=== PATIENT | male | born 1995 | race Caucasian/White ===

== ENCOUNTER 2017-07-11 18:56 | Inpatient (IN) | payer OTHER ==
[2017-07-11] MEDS ORDERED: SODIUM CHLORIDE 0.9% 1000 ML INFUS.BAG IV PRN (19:20)
[2017-07-11] MEDS ORDERED: AZITHROMYCIN IVPB 500 MG in DEXTROSE 5%-WATER - 250 ML IVPB ONE (19:35)
[2017-07-11] MEDS ORDERED: ACETAMINOPHEN 1000 MG/100 ML VIAL (NON FORMULARY) IVPB ONE (19:35)
--- NOTE | 2017-07-11 19:44 | PDOC ---
History of Present Illness - General History Source: Care Provider Exam Limitations: Clinical Condition - History of Present Illness Initial Comments: 07/11/17 19:39 Patient is a 22M with history of prior pneumona admission in 08/02, meningomyecele, hydrocephalus, developmentally delayed, and phimosis presenting from an assisted care facility via ems here today with respiratory distress. Per EMS, patient desatted into the 80s and was febrile in the assisted care facility. Patient is unable to add to history, however he is non-communicative at baseline. <Ronni Klein - Last Filed: 07/12/17 03:13> <Giuliano Atkinson - Last Filed: 07/12/17 18:41> - General Chief Complaint: Respiratory Distress Stated Complaint: RESPIRATORY DISTRESS Time Seen by Provider: 07/11/17 19:07 Past History - Psycho/Social/Smoking Cessation Hx Suicidal Ideation: No Smoking History: Unknown if ever smoked Have you smoked in the past 12 months: No Information on smoking cessation initiated: No Hx Alcohol Use: No Drug/Substance Use Hx: No Hx Substance Use Treatment: No <Ronni Klein - Last Filed: 07/12/17 03:13> <Giuliano Atkinson - Last Filed: 07/12/17 18:41> - Past Medical History Allergies/Adverse Reactions: Allergies Allergy/AdvReac Type Severity Reaction Status Date / Time No Known Allergies Allergy Verified 07/29/16 20:28 Home Medications: Ambulatory Orders Calcium Carbonate 1 gm PO DAILY 07/29/16 Carbamazepine 700 mg PO TID 07/29/16 Mineral Oil/Petrolatum,White [Artificial Tears Eye Ointment] 3.5 gm OP HS Multivitamin [Poly-Vitamin] 10 ml PO DAILY 07/29/16 Phenobarbital Liquid - [Phenobarbital Liquid 20 MG/5 ML -] 97.2 mg PO AM Phenobarbital Liquid - [Phenobarbital Liquid 20 MG/5 ML -] 148.8 mg PO HS Polyethylene Glycol 3350 [Gavilax] 17 gm PO HS 07/29/16 Review of Systems - Review of Systems Able to Perform ROS?: No (Pt non-communicative) <Ronni Klein - Last Filed: 07/12/17 03:13> *Physical Exam - Vital Signs Last Vital Signs Temp Pulse Resp BP Pulse Ox 142 H 34 H 117/76 95 07/11/17 19:31 07/11/17 19:31 07/11/17 19:31 07/11/17 19:31 - Physical Exam Comments: 07/11/17 19:44 GENERAL: Awake, alert, non-communicative AIRWAY: Eyes spontaneously open, protecting airway HEAD: Extremely macrocephalic, no signs of acute trauma EYES: PERRLA, follows across room sclera anicteric, conjunctiva clear ENT: Auricles normal inspection, hearing grossly normal, nares patent, oropharynx clear without exudates. LUNGS: In respiratory distress, diffuse rales and crackles in all lung beckham, tachypneic HEART: Tachycardic, regular rhythm. Cold lower extremities, weak pulses bilaterally in lower extremity ABDOMEN: Distended, nontender, positive bowel sounds. No guarding, no rebound. EXTREMITIES: Bilateral talipes equinovarus, bilateral equally shortened lower extremities NEUROLOGICAL: Alert, eye tracking across room, PERRLA, face symmetrical, unable to further assess neuro status <Ronni Klein - Last Filed: 07/12/17 03:13> - Vital Signs Last Vital Signs Temp Pulse Resp BP Pulse Ox 98.7 F 132 H 25 H 105/67 97 07/12/17 16:00 07/12/17 18:00 07/12/17 18:00 07/12/17 18:00 07/12/17 18:02 <Giuliano Atkinson - Last Filed: 07/12/17 18:41> ED Treatment Course - LABORATORY CBC & Chemistry Diagram: 07/12/17 01:01 07/11/17 21:20 - RADIOLOGY Radiology Studies Ordered: Category Date Time Status CHEST X-RAY PORTABLE* [RAD] Stat Radiology 07/11/17 19:21 Ordered <Ronni Klein - Last Filed: 07/12/17 03:13> - LABORATORY CBC & Chemistry Diagram: 07/12/17 05:15 07/12/17 01:02 - ADDITIONAL ORDERS Additional order review: 07/11/17 20:30 RBC 5.90 H D MCV 90.1 MCHC 33.5 RDW 15.4 MPV Y Neutrophils % Y Lymphocytes % Y - Medications Given in the ED: ED Medications Discontinued Medications Generic Name Dose Route Start Last Admin Trade Name Freq PRN Reason Stop Dose Admin Acetaminophen 1,000 mg 07/11/17 19:35 07/11/17 21:07 Ofirmev Injection - IVPB 07/11/17 19:36 1,000 mg ONCE ONE Administration Acetaminophen 1,000 mg 07/12/17 08:22 07/12/17 09:16 Ofirmev Injection - IVPB 07/12/17 08:23 1,000 mg ONCE ONE Administration Cyclobenzaprine HCl 5 mg 07/11/17 22:05 07/11/17 22:29 Flexeril - PO 07/11/17 22:06 Not Given ONCE ONE Azithromycin 500 mg/ Dextrose 250 mls @ 250 mls/hr 07/11/17 19:35 07/11/17 21: 25 IVPB 07/11/17 20:34 250 mls/hr ONCE ONE Administration Vancomycin HCl 1,000 mg/ 250 mls @ 250 mls/hr 07/11/17 22:00 07/11/17 22:28 Dextrose IVPB 250 mls/hr BID ELISHA Administration Protocol Sodium Chloride 2,000 mls @ 1,000 mls/hr 07/11/17 23:27 07/12/17 00:16 Normal Saline - IV 07/12/17 01:26 1,000 mls/hr ASDIR STA Administration Sodium Chloride 500 mls @ 500 mls/hr 07/12/17 09:24 07/12/17 09:40 Normal Saline - IV 07/12/17 10:23 500 mls/hr ASDIR STA Administration Insulin Human Regular 4 units 07/11/17 22:42 07/11/17 23:13 Novolin R Vial *For Ivpush Or Iv Drip Only* IVPUSH 07/11/17 22:43 4 units ONCE ONE Administration Piperacillin Sod/Tazobactam Sod 4.5 gm 07/11/17 20:37 07/11/17 21:07 Zosyn 4.5gm Ivpb (Pre-Docked) IVPB 07/11/17 20:38 4.5 gm ONCE ONE Administration Piperacillin Sod/Tazobactam Sod 4.5 gm 07/12/17 03:00 07/12/17 02:36 Zosyn 4.5gm Ivpb (Pre-Docked) IVPB 07/12/17 03:01 4.5 gm ONCE ONE Administration Sodium Chloride 2,000 ml 07/11/17 20:32 07/11/17 21:49 Normal Saline - IV 07/11/17 20:33 2,000 ml ONCE ONE Administration <Giuliano Atkinson - Last Filed: 07/12/17 18:41> Medical Decision Making - Medical Decision Making 07/11/17 19:55 22M with history of meningomyelocele, macrocephaly, developmental delay and pneumonia here today with respiratory distress. Meets sepsis criteria. Source likely lungs. Sepsis workup initiated. Given 2L NS, tylenol, vanc, zosyn, azithromycin. 07/11/17 20:14 EKG shows QTc 447, tachycardic to 139, rightward axis, diffuse ME depressions, no ST elevations, sinus rhythm 07/11/17 20:16 CXR shows increased density in the left lung base. Exam limited by patient rotation. 07/11/17 23:03 WBC 25. Lactate 5.7. Glucose 538. Acetone negative. Gap of 20, due to lactic acid. Given 4U of insulin for high glucose. Admitted to ICU. <Ronni Klein - Last Filed: 07/12/17 03:13> - Critical Care Time Total Critical Care Time (minutes): 35 Critical Care Statement: The care of this patient involved high complexity decision making to prevent further life threatening deterioration of the patient 's condition and/or to evaluate & treat vital organ system(s) failure or risk of failure. <Giuliano Atkinson - Last Filed: 07/12/17 18:41> *DC/Admit/Observation/Transfer - Discharge Dispostion Admit: No - Attestations Physician Attestion: 07/12/17 03:13 I, Dr. Ronni Klein, attest that this document has been prepared under my direction and personally reviewed by me in its entirety. I further attest, that it accurately reflects all work, treatment, procedures and medical decision -making performed by me. <Ronni Klein - Last Filed: 07/12/17 03:13> <Giuliano Atkinson - Last Filed: 07/12/17 18:41> Diagnosis at time of Disposition: Pneumonia Qualifiers: Pneumonia type: aspiration pneumonia Aspiration pneumonia type: unspecified Laterality: left Lung location: unspecified part of lung Qualified Code(s): J69.0 - Pneumonitis due to inhalation of food and vomit - Discharge Dispostion Condition at time of disposition: Stable
--- NOTE | 2017-07-11 20:07 | PDOC ---
Attending Attestation - Resident Resident Name: Ronni Klein - ED Attending Attestation I have performed the following: I have examined & evaluated the patient, The case was reviewed & discussed with the resident, I agree w/resident's findings & plan, Exceptions are as noted - HPI HPI: 07/11/17 20:02 22-year-old male with history of pneumonia, meningomyelocele, developmental delayed, hydrocephalus presents from [place] for hypoxia and tachycardia. The patient is nonverbal and according to the cold type composing machine operator, the patient appears like his usual self. They noted that he is tachycardic hypoxic and was concerned for pneumonia and the patient was sent to the ED. Patient noted to have fever of greater than 102. He has had rhonchorous breath sounds. - Physicial Exam PE: 07/11/17 20:03 GENERAL: Awake. Tachypneic. Macrocephalic HEAD: No signs of trauma EYES: PERRLA, EOMI, sclera anicteric, conjunctiva clear ENT: Auricles normal inspection, hearing grossly normal, nares patent, oropharynx clear without exudates. NECK: Normal ROM, supple, no lymphadenopathy, JVD, or masses LUNGS: Ronchorous bilaterally HEART: Tachycardic. Regular rate and rhythm, normal S1 and S2, no murmurs, rubs or gallops ABDOMEN: Soft, nontender, normoactive bowel sounds. No guarding, no rebound. No masses EXTREMITIES: Normal range of motion, no edema. No clubbing or cyanosis. No cords, erythema, or tenderness NEUROLOGICAL: Cranial nerves II through XII grossly intact. Contractured and clubbed feet. SKIN: Warm, Dry, normal turgor, no rashes or lesions noted. - Medical Decision Making 07/11/17 20:04 Vital Signs Temp Pulse Resp BP Pulse Ox 142 H 34 H 117/76 95 07/11/17 19:37 07/11/17 19:31 07/11/17 19:31 07/11/17 19:37 Patient likely with pneumonia. Adult sepsis protocol initiated. Labs, supplemental O2, cultures. We'll likely need hospital coverage acquired pneumonia antibiotics. We'll likely need admission to the ICU for further management. Heart Score/ECG Review #1 07/11/17 20:41 NSR 139, rightward axis deviation, no std/max, QTC 447 msec
[2017-07-11] MEDS ORDERED: SODIUM CHLORIDE 0.9% 1000 ML INFUS.BAG IV ONE (20:32)
[2017-07-11] MEDS ORDERED: PIPERACILLIN/TAZOB 4.5 GM/100 ML PRE-DOCKED IVPB ONE (20:37)
[2017-07-11 20:52] LABS: MCH 30.2 pg (25.7-33.7); MCHC 33.5 g/dl (32.0-35.9); MEAN CELL VOLUME 90.1 fl (80-96); RDW 15.4 % (11.9-15.9)
[2017-07-11] MEDS ORDERED: ACETAMINOPHEN INJECTION 100 ML IVPB ONE (20:56)
[2017-07-11] MEDS ORDERED: PIPERACILLIN/TAZOB 4.5 GM 100 ML IVPB ONE (20:57)
[2017-07-11 21:09] LABS: URINE APPEARANCE CLOUDY; URINE BLOOD 1+ (NEGATIVE); URINE GLUCOSE (UA) NEGATIVE (NEGATIVE); URINE KETONE NEGATIVE (NEGATIVE); URINE NITRITE NEGATIVE (NEGATIVE); URINE UROBILINOGEN NEGATIVE mg/dL (0.2-1.0)
[2017-07-11] MEDS ORDERED: AZITHROMYCIN IVPB 250 ML IVPB ONE (21:11)
[2017-07-11 21:18] LABS: URINE COLOR YELLOW; URINE LEUK ESTERASE 1+ (NEGATIVE); URINE PROTEIN 2+ (NEGATIVE)
[2017-07-11 21:23] LABS: URINE BACTERIA MODERATE /hpf (NONE SEEN); URINE HYALINE CAST 8 /lpf; URINE MUCUS RARE; URINE RBC 34 /hpf (0-3); URINE WBC 114 /hpf (3-5)
[2017-07-11 21:41] LABS: PLATELET COMMENT2 NO CLOTTING DETECTED
[2017-07-11 21:42] LABS: PLATELET COMMENT3 UNABLE TO ENUMERATE
[2017-07-11 21:43] LABS: PLATELET ESTIMATE ADEQUATE (NORMAL)
[2017-07-11 21:44] LABS: METAMYELOCYTE 5 % (0-2); MYELOCYTE 2 % (0-2); TOTAL CELLS COUNTED 100
[2017-07-11 21:49] LABS: INR 1.66 (0.82-1.09); PROTHROMBIN TIME (PATIENT) 18.4 SEC (9.98-11.88)
[2017-07-11 21:58] LABS: ALBUMIN 2.6 g/dl (3.4-5.0); ANION GAP 20 (8-16); BILIRUBIN,TOTAL 0.7 mg/dL (0.2-1.0); CALCIUM 7.7 mg/dL (8.5-10.1); CO2 19 mmol/L (21-32); SGOT/AST 10 U/L (15-37); SGPT/ALT 20 U/L (12-78); TOT PROT 7.2 g/dl (6.4-8.2)
[2017-07-11 21:59] LABS: ALK PHOS 89 U/L (45-117)
[2017-07-11 22:00] LABS: GLUCOSE,RANDOM 538 mg/dL (74-106)
[2017-07-11] MEDS ORDERED: VANCOMYCIN 1,000 MG in DEXTROSE 5%-WATER - 250 ML IVPB SCH (22:00)
[2017-07-11] MEDS ORDERED: CYCLOBENZAPRINE HCL 10 MG TABLET (FP) PO ONE (22:05)
[2017-07-11] MEDS ORDERED: VANCOMYCIN 1 GRAM (PRE-DOCKED) 250 ML IVPB ONE (22:25)
[2017-07-11] MEDS ORDERED: INSULIN REGULAR HUMAN 100 UNITS/ML *VIAL IVPUSH ONE (22:42)
--- NOTE | 2017-07-11 23:10 | HP ---
CHIEF COMPLAINT: respiratory distress at [facility] PCP: [facility] HISTORY OF PRESENT ILLNESS: This is a 22yo male with history of pneumonia, meningomyelocele, developmental delayed, hydrocephalus s/p [employer] shunt, spastic CP , epilepsy presents from [place] for hypoxia and tachycardia. The patient is nonverbal and according to the ladies' locker room attendant, the patient appears like his usual self. They noted that he is tachycardic hypoxic and was concerned for pneumonia and the patient was sent to the ED. Patient noted to have fever of greater than 102. He has had rhonchorous breath sounds. ER course was notable for: (1) Tachypnea- 40, Tachycardia- 142, Fevers- 101.3 (2) Leukocytosis of 25,000 (3) Lactic acid- 5.7 (4) AG- 20 acetone (-) (5) Hyperglycemia- 538 (6) CXR with large effusion to left lung (7) UA- LE 1+, WBC-114, Moderate Bacteria Recent Travel: none PAST MEDICAL HISTORY: see HPI PAST SURGICAL HISTORY: see HPI Social History: Smoking: none Alcohol: none Drugs: none Allergies No Known Allergies Allergy (Verified 07/29/16 20:28) HOME MEDICATIONS: Home Medications Medication Instructions Recorded Calcium Carbonate 1 gm PO DAILY 07/29/16 Carbamazepine 700 mg PO TID 07/29/16 Mineral Oil/Petrolatum,White 3.5 gm OP HS 07/29/16 [Artificial Tears Eye Ointment] Multivitamin [Poly-Vitamin] 10 ml PO DAILY 07/29/16 Phenobarbital Liquid - 97.2 mg PO AM 07/29/16 [Phenobarbital Liquid 20 MG/5 ML -] Phenobarbital Liquid - 148.8 mg PO HS 07/29/16 [Phenobarbital Liquid 20 MG/5 ML -] Polyethylene Glycol 3350 [Gavilax] 17 gm PO HS 07/29/16 REVIEW OF SYSTEMS Unable to obtain due to baseline mental status of nonverbal. PHYSICAL EXAMINATION Vital Signs - 24 hr 07/11/17 07/11/17 07/11/17 19:31 19:37 20:55 Temperature 101.3 F H Pulse Rate 142 H 142 H Pulse Rate [ Apical] Respiratory 34 H Rate Blood Pressure 117/76 O2 Sat by Pulse 95 95 Oximetry (%) 07/11/17 21:53 Temperature Pulse Rate Pulse Rate [ 139 H Apical] Respiratory 25 H Rate Blood Pressure O2 Sat by Pulse 100 Oximetry (%) GENERAL: Awake, alert, and fully oriented, in no acute distress. HEAD: Macrocephalic with no signs of trauma. EYES: Pupils equal, round and reactive to light, eyes track, sclera anicteric, conjunctiva clear. No lid lag. EARS, NOSE, THROAT: Ears normal, nares patent, oropharynx clear without exudates. Moist mucous membranes. NECK: Normal range of motion, supple without lymphadenopathy, JVD, or masses. LUNGS: Rhonchi present over all lung beckham. Accessory muscle use present. Tachypneic@40 on 5LNC. HEART: Tachycardia @118. Sinus rhythm, normal S1 and S2 without murmur, rub or gallop. ABDOMEN: Firm, nontender, distended, normoactive bowel sounds, no guarding, no rebound, no masses. No hepatomegaly or splenomegaly. MUSCULOSKELETAL: Normal range of motion at all joints. No bony deformities or tenderness. No CVA tenderness. UPPER EXTREMITIES: 2+ pulses, warm, well-perfused. No cyanosis. No clubbing. No peripheral edema. LOWER EXTREMITIES: 2+ pulses, cool to palpation. No calf tenderness. No peripheral edema. BLE shortened with minimal muscle mass. B/L club feet. NEUROLOGICAL: Eyes track. PERRLA. SKIN: Warm, dry, normal turgor, no rashes or lesions noted, normal capillary refill. Laboratory Results - last 24 hr 07/11/17 07/11/17 07/11/17 20:30 20:30 20:30 WBC 25.0 H D RBC 5.90 H D Hgb 17.8 H D Hct 53.2 H D MCV 90.1 MCH 30.2 MCHC 33.5 RDW 15.4 Plt Count No Result Required. MPV Y Total Counted 100 Neutrophils % Y Neutrophils % (Manual) 60 Band Neuts % (Manual) 30 H Lymphocytes % Y Lymphocytes % (Manual) 2 L Monocytes % (Manual) 1 L Myelocytes % (Man) 2 Platelet Estimate Adequate Platelet Comment No clotting detected RBC Morphology INR Cancelled PTT (Actin FS) Cancelled Sodium Cancelled Potassium Cancelled Chloride Cancelled Carbon Dioxide Cancelled Anion Gap Cancelled BUN Cancelled Creatinine Cancelled Creat Clearance w eGFR Cancelled Random Glucose Cancelled Lactic Acid Calcium Cancelled Total Bilirubin Cancelled AST Cancelled ALT Cancelled Alkaline Phosphatase Cancelled Creatine Kinase Cancelled Troponin I Cancelled Total Protein Cancelled Albumin Cancelled Urine Color Urine Appearance Urine pH Ur Specific [place] Urine Protein Urine Glucose (UA) Urine Ketones Urine Blood Urine Nitrite Urine Bilirubin Urine Urobilinogen Ur Leukocyte Esterase Urine RBC Urine WBC Ur Epithelial Cells Urine Bacteria Hyaline Casts Urine Mucus Acetone, Qual Blood Type Antibody Screen Spec Expiration Date 07/11/17 07/11/17 07/11/17 20:30 20:30 20:30 WBC RBC Hgb Hct MCV MCH MCHC RDW Plt Count MPV Total Counted Neutrophils % Neutrophils % (Manual) Band Neuts % (Manual) Lymphocytes % Lymphocytes % (Manual) Monocytes % (Manual) Myelocytes % (Man) Platelet Estimate Platelet Comment RBC Morphology INR PTT (Actin FS) Sodium Potassium Chloride Carbon Dioxide Anion Gap BUN Creatinine Creat Clearance w eGFR Random Glucose Lactic Acid 5.7 H* Calcium Total Bilirubin AST ALT Alkaline Phosphatase Creatine Kinase Troponin I Total Protein Albumin Urine Color Urine Appearance Urine pH Ur Specific [place] Urine Protein Urine Glucose (UA) Urine Ketones Urine Blood Urine Nitrite Urine Bilirubin Urine Urobilinogen Ur Leukocyte Esterase Urine RBC Urine WBC Ur Epithelial Cells Urine Bacteria Hyaline Casts Urine Mucus Acetone, Qual Blood Type Cancelled A NEGATIVE Antibody Screen Cancelled Spec Expiration Date Cancelled 07/11/17 07/11/17 07/11/17 20:48 21:20 21:20 WBC RBC Hgb Hct MCV MCH MCHC RDW Plt Count MPV Total Counted Neutrophils % Neutrophils % (Manual) Band Neuts % (Manual) Lymphocytes % Lymphocytes % (Manual) Monocytes % (Manual) Myelocytes % (Man) Platelet Estimate Platelet Comment RBC Morphology INR 1.66 H PTT (Actin FS) 30.0 Sodium 130 L Potassium 3.8 Chloride 91 L D Carbon Dioxide 19 L D Anion Gap 20 H BUN 18 D Creatinine 1.0 D Creat Clearance w eGFR > 60 Random Glucose 538 H* D Lactic Acid Calcium 7.7 L Total Bilirubin 0.7 D AST 10 L D ALT 20 Alkaline Phosphatase 89 D Creatine Kinase Troponin I Total Protein 7.2 Albumin 2.6 L Urine Color Yellow Urine Appearance Cloudy Urine pH 5.0 Ur Specific [place] 1.020 Urine Protein 2+ H Urine Glucose (UA) Negative Urine Ketones Negative Urine Blood 1+ H Urine Nitrite Negative Urine Bilirubin 2.0 Urine Urobilinogen Negative Ur Leukocyte Esterase 1+ H Urine RBC 34 Urine WBC 114 Ur Epithelial Cells Many Urine Bacteria Moderate Hyaline Casts 8 Urine Mucus Rare Acetone, Qual Blood Type Antibody Screen Spec Expiration Date 07/11/17 07/11/17 21:20 21:20 WBC RBC Hgb Hct MCV MCH MCHC RDW Plt Count MPV Total Counted Neutrophils % Neutrophils % (Manual) Band Neuts % (Manual) Lymphocytes % Lymphocytes % (Manual) Monocytes % (Manual) Myelocytes % (Man) Platelet Estimate Platelet Comment RBC Morphology INR PTT (Actin FS) Sodium Potassium Chloride Carbon Dioxide Anion Gap BUN Creatinine Creat Clearance w eGFR Random Glucose Lactic Acid Calcium Total Bilirubin AST ALT Alkaline Phosphatase Creatine Kinase Troponin I Total Protein Albumin Urine Color Urine Appearance Urine pH Ur Specific [place] Urine Protein Urine Glucose (UA) Urine Ketones Urine Blood Urine Nitrite Urine Bilirubin Urine Urobilinogen Ur Leukocyte Esterase Urine RBC Urine WBC Ur Epithelial Cells Urine Bacteria Hyaline Casts Urine Mucus Acetone, Qual Negative Blood Type A NEGATIVE Antibody Screen Negative Spec Expiration Date CXR reviewed with official read: Since prior chest x-ray dated 08/07/2016, there remains airspace disease in the left lung base. Patient is rotated to the left. Cardiac silhouette is difficult to evaluate on this exam. The right lung is clear. Marked dextroscoliosis of the thoracic spine. Impression: Limited examination due to rotation of the patient to the left. There is increased density in the left lung base suspicious for airspace disease. Correlation with PA and lateral view of the chest, if possible is needed for further evaluation Reported By: Lianet Bustos MD 07/11/172003 ASSESSMENT/PLAN: A: 22yo man with Sepsis with probable source as mixed given CXR and UA. Cannot exclude abdomen as source given V-P shunt and abdominal distention. P: 1. Sepsis - likely mixed source of PNA and UTI with ?Abd - Meets SIRS with WBC, RR, temp, HR - Empiric treatment in ED vancomycin, Zosyn and Zithromax - Continue Vanco 1250mg bid - Zosyn 4.5g q6h - ID consult - repeat lactic acid pending - trend CBC, CMP - strict I&O's - would CT head when stable for CT - abd U/S- pending 2. PNA - titrate O2 to Spo2>93% - Vancomycin 15mg/kg bid - Zosyn 4.5g q6h 3. UTI - broad coverage with Zosyn and Vanc until C&S returned 4. Hyperglycemia - FS qACHS - ISS - NS@125 - Acetone negative 5. Lactic acidosis - initial 5.7 - received 2 liters NS - repeat pending 6. Seizures - monitor for activity - continue phenobarbitol 7. h/o Hydrocephalus with V-P shunt - monitor 8. F/E/N - daily CMP - NS@125 - NPO 9. PPX -sqh -SCD Dispo- requires ICU treatment for his acute medical conditions Visit type - Emergency Visit Emergency Visit: Yes ED Registration Date: 07/11/17 Care time: The patient presented to the Emergency Department on the above date and was hospitalized for further evaluation of their emergent condition. - New Patient This patient is new to me today: Yes Date on this admission: 07/16/17 - Critical Care Critical Care patient: No Total Critical Care Time (in minutes): 60 Critical Care Statement: The care of this patient involved high complexity decision making to prevent further life threatening deterioration of the patient 's condition and/or to evaluate & treat vital organ system(s) failure or risk of failure.
[2017-07-11 23:26] LABS: CPK 51 IU/L (39-308); TROPONIN I < 0.02 ng/ml (0.00-0.05)
[2017-07-11] MEDS ORDERED: SODIUM CHLORIDE 2,000 ML IV STA (23:27)
[2017-07-12] MEDS: SODIUM CHLORIDE 1,000 ML IV SCH ×2 (01:00→11:31)
[2017-07-12 01:11] VITALS: BMI 36.8
--- NOTE | 2017-07-12 01:19 | CONSULT ---
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 In EDT 102.8, HR 130-142, RR 34, BP 117/76. He was placed on 100% NRB fo o2 sat in the 80's with improvement. Labs notable for WBC 5, Hgb 17.8, Na 130, HCO3 19 , BG 538, acetone negative, lactate 5.7, INR 1.66, urine WBC 114. CXR s/f LLL opacities. He was given 2L NS and started on Azithro, Zosyn and vanco IV as empiric coverage. He was transferred to ICU for further management. In the ICU rec'd BP 120/81, HR 120, RR 34, T98.4 O2 sat 96% on 100% NRB. Anxious and vomited x1 when turned for cleaning. Abd noted to be very distended , tympanic and firm. NGT to LWS drained 2600cc of NB brownish fluid. Abd appeared less firm, breathing less labored. Abd US done. 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, Other (Macrocephaly) Musculoskeletal: Yes: Paraplegia - Alcohol/Substance Use Hx Alcohol Use: No - Smoking History Smoking history: Unknown if ever smoked Have you smoked in the past 12 months: No Home Medications - Allergies Allergies/Adverse Reactions: Allergies Allergy/AdvReac Type Severity Reaction Status Date / Time No Known Allergies Allergy Verified 07/29/16 20:28 - Home Medications Home Medications: Ambulatory Orders Calcium Carbonate 1 gm PO DAILY 07/29/16 Carbamazepine 700 mg PO TID 07/29/16 Mineral Oil/Petrolatum,White [Artificial Tears Eye Ointment] 3.5 gm OP HS Multivitamin [Poly-Vitamin] 10 ml PO DAILY 07/29/16 Phenobarbital Liquid - [Phenobarbital Liquid 20 MG/5 ML -] 97.2 mg PO AM Phenobarbital Liquid - [Phenobarbital Liquid 20 MG/5 ML -] 148.8 mg PO HS Polyethylene Glycol 3350 [Gavilax] 17 gm PO HS 07/29/16 Review of Systems Unable to obtain ROS, reason: Non verbal Physical Exam Vital Signs: Vital Signs Temperature 98.2 F 07/12/17 00:50 Pulse Rate 112 H 07/12/17 00:50 Respiratory Rate 25 H 07/12/17 00:50 Blood Pressure 120/81 07/12/17 00:50 O2 Sat by Pulse Oximetry (%) 100 07/12/17 00:50 Constitutional: Yes: Anxious, Mild Distress, Obese Eyes: Yes: WNL, Conjunctiva Clear HENT: Yes: Other (HYdrocephalus) Neck: Yes: Trachea Midline Cardiovascular: Yes: Tachycardia, S1, S2 Respiratory: Yes: Rales, Rhonchi, SOB, Wheezes Gastrointestinal: Yes: Distention (Tympanic, distended, unclear if non-tender to palp), Hypoactive Bowel Sounds, Vomiting (Vomited when turned to side) Renal/: Yes: Incontinence Musculoskeletal: Yes: Other (Contracted; malformed) Edema: No Peripheral Pulses WNL: Yes Integumentary: Yes: Pressure Ulcer (Stage 2 on bilat buttocks) Neurological: Yes: Other (Spastic, non-verbal) Labs: CBC,CMP WBC 25.0 K/mm3 (4.0-10.0) H D 07/11/17 20:30 RBC 5.90 M/mm3 (4.00-5.60) H D 07/11/17 20:30 Hgb 17.8 GM/dL (11.7-16.9) H D 07/11/17 20:30 Hct 53.2 % (35.4-49) H D 07/11/17 20:30 MCV 90.1 fl (80-96) 07/11/17 20:30 MCH 30.2 pg (25.7-33.7) 07/11/17 20:30 MCHC 33.5 g/dl (32.0-35.9) 07/11/17 20:30 RDW 15.4 % (11.9-15.9) 07/11/17 20:30 Plt Count No Result Required. 07/11/17 20:30 MPV Y 07/11/17 20:30 Total Counted 100 07/11/17 20:30 Neutrophils % Y 07/11/17 20:30 Neutrophils % (Manual) 60 % (42.8-82.8) 07/11/17 20:30 Band Neuts % (Manual) 30 % (0-10) H 07/11/17 20:30 Lymphocytes % Y 07/11/17 20:30 Lymphocytes % (Manual) 2 % (8-40) L 07/11/17 20:30 Monocytes % (Manual) 1 % (3.8-10.2) L 07/11/17 20:30 Myelocytes % (Man) 2 % (0-2) 07/11/17 20:30 Platelet Estimate Adequate (NORMAL) 07/11/17 20:30 Platelet Comment Slt plt clumping 07/11/17 20:30 Platelet Comment No clotting detected 07/11/17 20:30 RBC Morphology 07/11/17 20:30 Sodium 130 mmol/L (136-145) L 07/11/17 21:20 Potassium 3.8 mmol/L (3.5-5.1) 07/11/17 21:20 Chloride 91 mmol/L (98-107) L D 07/11/17 21:20 Carbon Dioxide 19 mmol/L (21-32) L D 07/11/17 21:20 Anion Gap 20 (8-16) H 07/11/17 21:20 BUN 18 mg/dL (7-18) D 07/11/17 21:20 Creatinine 1.0 mg/dL (0.7-1.3) D 07/11/17 21:20 Creat Clearance w eGFR > 60 (>60) 07/11/17 21:20 Random Glucose 538 mg/dL (74-106) H* D 07/11/17 21:20 Lactic Acid 5.7 mmol/L (0.4-2.0) H* 07/11/17 20:30 Calcium 7.7 mg/dL (8.5-10.1) L 07/11/17 21:20 Total Bilirubin 0.7 mg/dL (0.2-1.0) D 07/11/17 21:20 AST 10 U/L (15-37) L D 07/11/17 21:20 ALT 20 U/L (12-78) 07/11/17 21:20 Alkaline Phosphatase 89 U/L (45-117) D 07/11/17 21:20 Creatine Kinase 51 IU/L (39-308) 07/11/17 21:20 Troponin I < 0.02 ng/ml (0.00-0.05) 07/11/17 21:20 Total Protein 7.2 g/dl (6.4-8.2) 07/11/17 21:20 Albumin 2.6 g/dl (3.4-5.0) L 07/11/17 21:20 100% NRB Current Medications Generic Name Dose Route Start Last Admin Trade Name Frear PRN Reason Stop Dose Admin Chlorhexidine Gluconate 1 applic 07/12/17 22:00 Hibiclens For Decolonization - TP HS ELISHA Heparin Sodium (Porcine) 5,000 unit 07/12/17 06:00 Heparin - SQ TID ELISHA Vancomycin HCl 1,000 mg/ 250 mls @ 250 mls/hr 07/11/17 22:00 07/11/17 22:28 Dextrose IVPB 250 mls/hr BID ELISHA Administration Protocol Sodium Chloride 2,000 mls @ 1,000 mls/hr 07/11/17 23:27 07/12/17 00:16 Normal Saline - IV 07/12/17 01:26 1,000 mls/hr ASDIR STA Administration Vancomycin HCl 1,250 mg/ 250 mls @ 250 mls/hr 07/12/17 10:00 Dextrose IVPB BID ELISHA Protocol Sodium Chloride 1,000 mls @ 125 mls/hr 07/12/17 01:00 Normal Saline - IV ASDIR ELISHA Insulin Aspart 1 vial 07/12/17 07:00 Novolog Vial Sliding Scale - SQ ACHS [facility] Protocol Mupirocin 1 applic 07/12/17 10:00 Bactroban Ointment (For Decolonization) - NS 07/17/17 09:59 BID ELISHA Piperacillin Sod/Tazobactam Sod 4.5 gm 07/12/17 03:00 Zosyn 4.5gm Ivpb (Pre-Docked) IVPB Q6H-IV [facility] Vital Signs - 24 hr 07/11/17 07/11/17 07/11/17 19:31 19:37 20:55 Temperature 101.3 F H Pulse Rate 142 H 142 H Pulse Rate [ Apical] Respiratory 34 H Rate Blood Pressure 117/76 O2 Sat by Pulse 95 95 Oximetry (%) 07/11/17 07/11/1707/12/17 21:53 23:56 00:50 Temperature 99 F 98.2 F Pulse Rate 112 H Pulse Rate [ 139 H Apical] Respiratory 25 H 25 H 25 H Rate Blood Pressure 120/81 O2 Sat by Pulse 100 100 Oximetry (%) Imaging - Results Chest X-ray: Report Reviewed Ultrasound: Pending Problem List - Problems (1) Pneumonia Code(s): J18.9 - PNEUMONIA, UNSPECIFIED ORGANISM Qualifiers: Pneumonia type: aspiration pneumonia Aspiration pneumonia type: unspecified Laterality: left Lung location: unspecified part of lung Qualified Code(s): J69.0 - Pneumonitis due to inhalation of food and vomit (2) UTI (urinary tract infection) Code(s): N39.0 - URINARY TRACT INFECTION, SITE NOT SPECIFIED (3) Distended abdomen Code(s): R14.0 - ABDOMINAL DISTENSION (GASEOUS) Assessment/Plan 22yom with spastic CP, macrocephaly, hydrocephalous s/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 Also with severe abd distention with c/f abd process. Plan: Pulm/CV: Hypoxic respiratory insufficiency 2/2 recurrent HAP possible aspiration -O2 support with NRB mask for o2 sat>92% -Continue antib -Aspiration precautions -NGT to LWS -Albuterol nebs prn -Trend lactate ID: HAP ; UTI; -Trend WBC and temp -Cont Azithro, vanco and Zosyn for empiric HAP and UTI coverage -f/u cultures GI: ABD distention and large amt stomach content c/f bowel obstruction; elevated bilis and INR -NPO -NGT to LWS -Abd US -GI consult Renal: MYRA, AGMA, lactic acidosis, hyponatremia in setting of sepsis and volume depletion -Monitor BMP and UOP -IVF -perez cath Proph: Hep SQ; H2B
[2017-07-12 02:22] LABS: MEAN CELL VOLUME 91.1 fl (80-96)
[2017-07-12 02:27] LABS: MCH 30.2 pg (25.7-33.7); MCHC 33.1 g/dl (32.0-35.9); MEAN PLT VOLUME 7.9 fl (7.5-11.1); PLATELET COUNT 248 K/MM3 (134-434); WHITE BLOOD COUNT 7.7 K/mm3 (4.0-10.0)
[2017-07-12 02:42] LABS: INR 1.97 (0.82-1.09)
[2017-07-12] MEDS ORDERED: PIPERACILLIN/TAZOB 4.5 GM/100 ML PRE-DOCKED IVPB ONE (03:00)
[2017-07-12] MEDS ORDERED: PIPERACILLIN/TAZOB 4.5 GM/100 ML PRE-DOCKED IVPB SCH (03:00)
[2017-07-12 03:10] LABS: ARTERIAL BLD GAS O2 SATURATION 97.5 % (90-98.9); ARTERIAL BLOOD GAS HCO3 21.9 meq/L (22-26); ARTERIAL BLOOD GAS pH 7.31 (7.35-7.45)
[2017-07-12 03:14] LABS: ALLENS TEST POSITIVE; ART PUNCT SITE RIGHT RADIAL; LPM/O2% 100%; METHEMOGLOBIN 0.9 % (0.4-1.5); PT. ON O2? YES; TYPE OF O2 NONREBRETHER MASK
[2017-07-12 03:45] LABS: ALBUMIN 2.8 g/dl (3.4-5.0); ANION GAP 13 (8-16); BILIRUBIN,TOTAL 0.7 mg/dL (0.2-1.0); CALCIUM 7.7 mg/dL (8.5-10.1); CO2 22 mmol/L (21-32); CREATININE 0.5 mg/dL (0.7-1.3); GLUCOSE,RANDOM 97 mg/dL (74-106); PHOSPHOROUS 2.8 mg/dL (2.5-4.9); SGPT/ALT 18 U/L (12-78); TOT PROT 6.6 g/dl (6.4-8.2)
[2017-07-12 03:46] LABS: ALK PHOS 90 U/L (45-117)
[2017-07-12 03:49] LABS: SGOT/AST 19 U/L (15-37)
[2017-07-12] MEDS: HEPARIN NA (PORCINE) 5,000 UNITS/ML 1ML VIAL SQ SCH ×3 (06:00→21:37)
[2017-07-12 06:03] LABS: EOSINOPHIL 0.1 % (0-4.5); MCH 30.2 pg (25.7-33.7); MCHC 33.5 g/dl (32.0-35.9); MEAN CELL VOLUME 90.2 fl (80-96); NEUTROPHILS 87.9 % (42.8-82.8); PLATELET COUNT 270 K/MM3 (134-434); RDW 14.8 % (11.9-15.9); WHITE BLOOD COUNT 3.9 K/mm3 (4.0-10.0)
[2017-07-12] MEDS: INSULIN SLIDING SCALE (NOVOLOG) 1 VIAL SQ SCH ×4 (07:16→23:38)
[2017-07-12] MEDS ORDERED: ACETAMINOPHEN 1000 MG/100 ML VIAL (NON FORMULARY) IVPB ONE (08:22)
--- NOTE | 2017-07-12 08:24 | PN ---
Progress Note, Physician Chief Complaint: ID Full note dictated Sent from [facility] for profound developmental delay and fever with hypoxemia desaturating into the 80's. Can offer no complaint - Current Medication List Current Medications: Active Medications Chlorhexidine Gluconate (Hibiclens For Decolonization -) 1 applic TP HS ELISHA Heparin Sodium (Porcine) (Heparin -) 5,000 unit SQ TID [facility] Last Admin: 07/12/17 06:00 Dose: 5,000 unit Vancomycin HCl 1,000 mg/ (Dextrose) 250 mls @ 250 mls/hr IVPB BID ELISHA PRN Reason: Protocol Last Admin: 07/11/17 22:28 Dose: 250 mls/hr Vancomycin HCl 1,250 mg/ (Dextrose) 250 mls @ 250 mls/hr IVPB BID ELISHA PRN Reason: Protocol Sodium Chloride (Normal Saline -) 1,000 mls @ 125 mls/hr IV ASDIR [facility] Last Admin: 07/12/17 01:00 Dose: 125 mls/hr Insulin Aspart (Novolog Vial Sliding Scale -) 1 vial SQ ACHS ELISHA PRN Reason: Protocol Last Admin: 07/12/17 07:16 Dose: Not Given Mupirocin (Bactroban Ointment (For Decolonization) -) 1 applic NS BID ELISHA Stop: 07/17/17 09:59 Piperacillin Sod/Tazobactam Sod (Zosyn 4.5gm Ivpb (Pre-Docked)) 4.5 gm IVPB Q6H -IV [facility] - Objective Vital Signs: Vital Signs Temperature 100 F H 07/12/17 06:00 Pulse Rate 114 H 07/12/17 06:00 Respiratory Rate 26 H 07/12/17 06:00 Blood Pressure 100/64 07/12/17 06:00 O2 Sat by Pulse Oximetry (%) 100 07/12/17 00:50 Labs: CBC, BMP 07/12/17 05:15 07/12/17 01:02 INR, PTT INR 1.97 (0.82-1.09) H 07/12/17 01:02 Problem List - Problems (1) Sepsis Code(s): A41.9 - SEPSIS, UNSPECIFIED ORGANISM (2) UTI (urinary tract infection) Code(s): N39.0 - URINARY TRACT INFECTION, SITE NOT SPECIFIED (3) Respiratory failure Code(s): J96.90 - RESPIRATORY FAILURE, UNSP, UNSP W HYPOXIA OR HYPERCAPNIA Assessment/Plan Microbiology 07/30/16 17:00 Sputum - Expectorated Gram Stain - Final 07/30/16 17:00 Sputum - Expectorated Sputum Culture - Final Yeast Like Organism 07/29/16 23:35 Urine - Urine - Catheterized Urine Culture - Final Escherichia Coli Escherichia Coli#2 07/29/16 20:43 Blood - Peripheral Venous Blood Culture - Final NO GROWTH AFTER 5 DAYS INCUBATION 07/29/16 20:43 Blood - Peripheral Venous Blood Culture - Final NO GROWTH AFTER 5 DAYS INCUBATION Laboratory Tests 07/11/17 07/11/17 07/11/17 20:30 20:30 20:48 WBC 25.0 H D Hgb Plt Count INR ABG pH ABG pCO2 at Pt Temp ABG pO2 at Pt Temp Oxygen Flow Rate BUN Creatinine Lactic Acid 5.7 H* Total Bilirubin AST ALT Alkaline Phosphatase Ur Leukocyte Esterase 1+ H Urine RBC 34 Urine WBC 114 Urine Bacteria Moderate 07/12/17 07/12/17 07/12/17 01:02 01:02 01:02 WBC Hgb Plt Count INR 1.97 H ABG pH ABG pCO2 at Pt Temp ABG pO2 at Pt Temp Oxygen Flow Rate BUN 17 Creatinine 0.5 L D Lactic Acid 2.9 H* Total Bilirubin 0.7 AST 19 D ALT 18 Alkaline Phosphatase 90 Ur Leukocyte Esterase Urine RBC Urine WBC Urine Bacteria 07/12/17 07/12/17 02:55 05:15 WBC 3.9 L D Hgb 16.2 Plt Count 270 INR ABG pH 7.31 L ABG pCO2 at Pt Temp 44.6 ABG pO2 at Pt Temp 101.0 H Oxygen Flow Rate 100% BUN Creatinine Lactic Acid Total Bilirubin AST ALT Alkaline Phosphatase Ur Leukocyte Esterase Urine RBC Urine WBC Urine Bacteria Assessment Sepsis syndrome urinary tract source definate ? GI tract as well Difficult to rule out infiltrate Respiratory failure Bowel obstruction Plan Empiric therapy PIP TAZO 4.[address] abd ESR CRP Santy SCHULZ
--- NOTE | 2017-07-12 09:13 | CONS ---
DATE OF CONSULTATION: DATE OF DICTATION: 07/12/2017 HISTORY OF PRESENT ILLNESS: This is a 22-year-old profoundly developmentally delayed male from the [facility] brought for evaluation of respiratory distress, desaturating into the 80s, along with fever at the facility. He is noncommunicative. He has a history of severe hydrocephalus and meningomyelocele. He has apparently been treated for pneumonia in the past. Here, he was noted to have an x-ray that showed possible small-bowel obstruction for which a nasogastric tube was inserted. He is on a Ventimask and has documented fever here for which I am asked to see him now. PAST MEDICAL HISTORY: Includes meningocele and hydrocephalus. MEDICATIONS: Carbamazepine, multivitamin, phenobarbital. ALLERGIES: None known. SOCIAL HISTORY: Never smoked. No history of substance abuse. Resident of a long-term care facility. REVIEW OF SYSTEMS: Respiratory: Tachypnea with hypoxemia. No cough. Cardiac: No history of chest pain, syncope, palpitations, murmur. Gastrointestinal: Abdominal distention. No hematemesis, vomiting, blood per rectum. Genitourinary: Incontinent of urine, currently with Schwartz catheter. Neuromuscular: With severe hydrocephalus. PHYSICAL EXAMINATION: Vital Signs: Initially, his blood pressure was 117/76, pulse oximetry 95%, respiratory rate 34, pulse 142, T-max 101.3. HEENT: Revealed obvious hydrocephalus, wearing a Ventimask. Neck: Supple. Lungs: Clear. Diminished breath sounds. Heart: S1, S2. Regular rhythm. Tachycardic. No murmur. Abdomen: Distended. Bowel sounds diminished. No localized tenderness, guarding, rebound. No palpable mass. Extremities: No clubbing, cyanosis, or edema. LABORATORY DATA: The white count 25,000, hemoglobin 17.8, platelets of 248. Current white count 3.9, hemoglobin 16.2, platelets of 270. Differential on admission 60% polys, 30% bands, 2 lymphocytes, 1 monocyte, 2 myelocytes. AB.3145, PO2 101, 100% nonrebreather mask. BUN 17, creatinine 0.5. Lactic acid 5.7. Initial glucose 538. Liver enzymes within normal limit. Urinalysis: Leukocyte esterase 1+, 34 RBCs, 114 WBCs with many moderate bacteria. Abdominal x-ray was reviewed and indicates possible small-bowel obstruction. Chest x-ray poor quality, cannot rule out infiltrate. ASSESSMENT: A 22-year-old profoundly developmentally delayed male from the [facility] presents now with severe sepsis syndrome, fever, hypoxemia, and leukocytosis. Definite source of infection urinary tract. Additionally, a gastrointestinal source should be considered in light of findings of small-bowel obstruction. Cannot rule out infiltrate on current chest x-ray. PLAN: Previous cultures were reviewed, indicating E coli from July 29, 2016. Will empirically treat with piperacillin/tazobactam 4.5 g every 8 hours. ILIR QUEZADA M.D. [id number]
[2017-07-12] MEDS ORDERED: METOCLOPRAMIDE HCL INJECTION 10 MG/2 ML VIAL IVPB PRN (09:19)
--- NOTE | 2017-07-12 09:19 | PN ---
Physical Exam: SUBJECTIVE: Patient seen and examined Patient is 22 y/o M resident of [facility] [place], with h/o meningomyelocele, hydrocephalus s/p shunt, h/o epilepsy sent for evaluation of hypoxia and tachycardia and found to be septic with initial etiology of pneumonia and UTI. OBJECTIVE: Vital Signs Period Temp Pulse Resp BP Sys/Lyons Pulse Ox Last 24 Hr 98.2 F-100 F 112-124 23-26 98-123/59-81 96-100 GENERAL: The patient is awake, , in mild distress. 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 EYES: PERRL, sclera anicteric, conjunctiva clear. ENT: Ears normal, nares patent, oropharynx clear without exudates, moist mucous membranes. NECK: supple. LUNGS: Breath sounds equal, clear to auscultation bilaterally, no wheezes, no crackles, no accessory muscle use. HEART: Tachycardic, S1, S2 without murmur, rub or gallop. ABDOMEN:Distended, hypoactive bowel sounds, no guarding, no rebound, hepatosplenomegaly not appreciated, no masses. EXTREMITIES: Deformed, atophic muscles and contracted at knees with external rotation of hip b/l. 2+ pulses, warm, well-perfused, no edema. NEUROLOGICAL: Severe mental retardation. SKIN: Warm, dry, normal turgor, fine papular rash on face. Laboratory Results - last 24 hr 07/12/17 07/12/17 07/12/17 01:01 01:02 01:02 WBC 7.7 D RBC 5.05 Hgb 15.3 D Hct 46.0 MCV 91.1 MCH 30.2 MCHC 33.1 RDW 15.0 Plt Count 248 MPV 7.9 D Neutrophils % Lymphocytes % Monocytes % Eosinophils % Basophils % INR Puncture Site ABG pH ABG pCO2 at Pt Temp ABG pO2 at Pt Temp ABG HCO3 ABG O2 Sat (Measured) ABG O2 Content ABG Base Excess Bernabe Test Carboxyhemoglobin Methemoglobin O2 Delivery Device Oxygen Flow Rate PEEP Sodium 143 Potassium 4.2 Chloride 108 H D Carbon Dioxide 22 Anion Gap 13 BUN 17 Creatinine 0.5 L D Creat Clearance w eGFR > 60 Random Glucose 97 D Lactic Acid 2.9 H* Calcium 7.7 L Phosphorus 2.8 Magnesium 2.0 D Total Bilirubin 0.7 AST 19 D ALT 18 Alkaline Phosphatase 90 C-Reactive Protein Total Protein 6.6 Albumin 2.8 L 07/12/17 07/12/17 07/12/17 01:02 02:55 05:15 WBC 3.9 L D RBC 5.35 Hgb 16.2 Hct 48.3 MCV 90.2 MCH 30.2 MCHC 33.5 RDW 14.8 Plt Count 270 MPV 8.0 Neutrophils % 87.9 H Lymphocytes % 6.4 L D Monocytes % 5.6 Eosinophils % 0.1 D Basophils % 0.0 INR 1.97 H Puncture Site Right radial ABG pH 7.31 L ABG pCO2 at Pt Temp 44.6 ABG pO2 at Pt Temp 101.0 H ABG HCO3 21.9 L ABG O2 Sat (Measured) 97.5 ABG O2 Content 21.8 ABG Base Excess -4.0 L Bernabe Test Positive Carboxyhemoglobin 1.4 Methemoglobin 0.9 O2 Delivery Device Nonrebrether mask Oxygen Flow Rate 100% PEEP 0.0 Sodium Potassium Chloride Carbon Dioxide Anion Gap BUN Creatinine Creat Clearance w eGFR Random Glucose Lactic Acid Calcium Phosphorus Magnesium Total Bilirubin AST ALT Alkaline Phosphatase C-Reactive Protein Total Protein Albumin 07/12/17 08:30 WBC RBC Hgb Hct MCV MCH MCHC RDW Plt Count MPV Neutrophils % Lymphocytes % Monocytes % Eosinophils % Basophils % INR Puncture Site ABG pH ABG pCO2 at Pt Temp ABG pO2 at Pt Temp ABG HCO3 ABG O2 Sat (Measured) ABG O2 Content ABG Base Excess Bernabe Test Carboxyhemoglobin Methemoglobin O2 Delivery Device Oxygen Flow Rate PEEP Sodium Potassium Chloride Carbon Dioxide Anion Gap BUN Creatinine Creat Clearance w eGFR Random Glucose Lactic Acid Calcium Phosphorus Magnesium Total Bilirubin AST ALT Alkaline Phosphatase C-Reactive Protein 40.0 H Total Protein Albumin Active Medications Generic Name Dose Route Start Last Admin Trade Name Freq PRN Reason Stop Dose Admin Chlorhexidine Gluconate 1 applic 07/12/17 22:00 Hibiclens For Decolonization - TP HS ELISHA Heparin Sodium (Porcine) 5,000 unit 07/12/17 06:00 07/12/17 06:00 Heparin - SQ 5,000 unit TID ELISHA Administration Sodium Chloride 1,000 mls @ 125 mls/hr 07/12/17 01:00 07/12/17 01:00 Normal Saline - IV 125 mls/hr ASDIR ELISHA Administration Piperacillin Sod/Tazobactam Sod 100 mls @ 200 mls/hr 07/12/17 10:00 Zosyn 4.5gm Ivpb (Pre-Docked) IVPB Q8H-IV [facility] Protocol Vancomycin HCl 250 mls @ 166.667 mls/hr 07/12/17 10:00 Vancomycin (Pre-Docked) IVPB BID [facility] Protocol Insulin Aspart 1 vial 07/12/17 07:00 07/12/17 07:16 Novolog Vial Sliding Scale - SQ Not Given ACHS [facility] Protocol Mupirocin 1 applic 07/12/17 10:00 Bactroban Ointment (For Decolonization) - NS 07/17/17 09:59 BID [facility] ASSESSMENT/PLAN: Sepsis initiallty thought to be secondary to pneumonia and uti but most likely secondary to bowel obstruction. Patient started on broad spectrum abx vancomycin and zosyn and ID consult called will follow consult. Will consider changing to flagyl and levofloxacin as the source has changed. NGT inserted and drained 3.5 L bilious fluid, continue at low suction Reglan 10mg IVPB q6h insert rectal tube bolus 500cc stat IVF NS @125cc Monitor I&Os Lactic acid trended down to 2.9 will repeat stat now. O2 saturation 96% on 40% Fio2 If no improvement will call Surgery consult Turn q2h Hyperglycemia continue RISS Problem List - Problems (1) Meningomyelocele Code(s): Q05.9 - SPINA BIFIDA, UNSPECIFIED (2) Pneumonia Code(s): J18.9 - PNEUMONIA, UNSPECIFIED ORGANISM Qualifiers: Pneumonia type: aspiration pneumonia Aspiration pneumonia type: unspecified Laterality: left Lung location: unspecified part of lung Qualified Code(s): J69.0 - Pneumonitis due to inhalation of food and vomit (3) SBO (small bowel obstruction) Code(s): K56.69 - OTHER INTESTINAL OBSTRUCTION Visit type - Emergency Visit Emergency Visit: Yes ED Registration Date: 07/11/17 Care time: The patient presented to the Emergency Department on the above date and was hospitalized for further evaluation of their emergent condition. - New Patient This patient is new to me today: Yes Date on this admission: 07/13/17 - Critical Care Critical Care patient: Yes Total Critical Care Time (in minutes): 45 Critical Care Statement: The care of this patient involved high complexity decision making to prevent further life threatening deterioration of the patient 's condition and/or to evaluate & treat vital organ system(s) failure or risk of failure. - Discharge Referral Referred to [facility] Med [facility] No
[2017-07-12] MEDS ORDERED: SODIUM CHLORIDE 500 ML IV STA (09:24)
[2017-07-12] MEDS: METOCLOPRAMIDE HCL INJECTION 10 MG/2 ML VIAL IVPB SCH ×3 (09:37→21:36)
[2017-07-12] MEDS ORDERED: VANCOMYCIN 1,250 MG in DEXTROSE 5%-WATER - 250 ML IVPB SCH (10:00)
[2017-07-12] MEDS: PIPERACILLIN/TAZOB 4.5 GM 100 ML IVPB SCH ×2 (10:11→17:23)
[2017-07-12] MEDS: VANCOMYCIN 1 GRAM (PRE-DOCKED) 250 ML IVPB SCH ×2 (11:09→21:37)
[2017-07-12] MEDS: MUPIROCIN 2% TOPICAL OINTMENT FOR DECOLONIZATION NS SCH ×2 (11:09→21:37)
[2017-07-12] MEDS ORDERED: HEMOQUE TEST 1 EACH EACH ONE (11:39)
[2017-07-12] MEDS: morphine CARPU-JECT 2 MG/1 ML DISP.SYRIN IVPUSH PRN ×2 (15:33→21:39)
[2017-07-12] MEDS: CHLORHEXIDINE GLUCONATE 4% CLEANSER FOR DECOLONIZATION TP SCH (21:37)
[2017-07-13] MEDS: SODIUM CHLORIDE 1,000 ML IV SCH (01:00)
[2017-07-13] MEDS: PIPERACILLIN/TAZOB 4.5 GM 100 ML IVPB SCH ×3 (02:00→17:16)
[2017-07-13] MEDS: METOCLOPRAMIDE HCL INJECTION 10 MG/2 ML VIAL IVPB SCH ×4 (03:20→21:00)
[2017-07-13] MEDS: morphine CARPU-JECT 2 MG/1 ML DISP.SYRIN IVPUSH PRN ×2 (04:01→22:33)
[2017-07-13] MEDS: HEPARIN NA (PORCINE) 5,000 UNITS/ML 1ML VIAL SQ SCH ×3 (05:33→22:32)
[2017-07-13 06:06] LABS: MCH 30.3 pg (25.7-33.7); MCHC 33.9 g/dl (32.0-35.9); MEAN CELL VOLUME 89.5 fl (80-96); MEAN PLT VOLUME 7.8 fl (7.5-11.1); PLATELET COUNT 236 K/MM3 (134-434); RDW 14.5 % (11.9-15.9); WHITE BLOOD COUNT 6.9 K/mm3 (4.0-10.0)
[2017-07-13] MEDS: INSULIN SLIDING SCALE (NOVOLOG) 1 VIAL SQ SCH ×4 (06:21→22:00)
[2017-07-13 06:41] LABS: ANION GAP 5 (8-16); CALCIUM 7.9 mg/dL (8.5-10.1); CO2 27 mmol/L (21-32); CREATININE 0.3 mg/dL (0.7-1.3); GLUCOSE,RANDOM 85 mg/dL (74-106); MAGNESIUM 2.1 mg/dL (1.8-2.4); PHOSPHOROUS 1.7 mg/dL (2.5-4.9)
--- NOTE | 2017-07-13 08:59 | PN ---
Progress Note (short form) - Note Progress Note: Seen and examined in the ICU ABD CT w/ evidence of SBO Initial NG drainage 3liters w/ ~600ml addition overnight, patient is having small bowel movements Resp status stable on Nc Blood cultures positive for GPCs fever 100f Current Medications Chlorhexidine Gluconate (Hibiclens For Decolonization -) 1 applic TP HS ELISHA Last Admin: 07/12/17 21:37 Dose: 1 applic Heparin Sodium (Porcine) (Heparin -) 5,000 unit SQ TID ELISHA Last Admin: 07/13/17 05:33 Dose: 5,000 unit Sodium Chloride (Normal Saline -) 1,000 mls @ 125 mls/hr IV ASDIR ELISHA Last Admin: 07/13/17 01:00 Dose: 125 mls/hr Piperacillin Sod/Tazobactam Sod (Zosyn 4.5gm Ivpb (Pre-Docked)) 100 mls @ 200 mls/hr IVPB Q8H-IV ELISHA PRN Reason: Protocol Last Admin: 07/13/17 02:00 Dose: 200 mls/hr Vancomycin HCl (Vancomycin (Pre-Docked)) 250 mls @ 166.667 mls/hr IVPB BID ELISHA PRN Reason: Protocol Last Admin: 07/12/17 21:37 Dose: 166.667 mls/hr Insulin Aspart (Novolog Vial Sliding Scale -) 1 vial SQ ACHS ELISHA PRN Reason: Protocol Last Admin: 07/13/17 06:21 Dose: Not Given Metoclopramide HCl (Reglan Injection -) 10 mg IVPB Q6H ELISHA Last Admin: 07/13/17 03:20 Dose: 10 mg Morphine Sulfate (Morphine Injection -) 1 mg IVPUSH Q3H PRN PRN Reason: PAIN Last Admin: 07/13/17 04:01 Dose: 1 mg Mupirocin (Bactroban Ointment (For Decolonization) -) 1 applic NS BID ELISHA Stop: 07/17/17 09:59 Last Admin: 07/12/17 21:37 Dose: 1 applic Vital Signs Period Temp Pulse Resp BP Sys/Lyons Pulse Ox Last 24 Hr 98.4 F-100 F 112-132 20-26 95-123/50-83 97-100 Intake & Output 07/10/17 07/11/17 07/12/17 07/13/17 23:59 23:59 23:59 23:59 Intake Total 4270 1850 Output Total 5600 950 Balance -1330 900 Weight 80.331 kg 85.548 kg CBCD WBC 6.9 K/mm3 (4.0-10.0) D 07/13/17 05:15 RBC 4.23 M/mm3 (4.00-5.60) D 07/13/17 05:15 Hgb 12.8 GM/dL (11.7-16.9) D 07/13/17 05:15 Hct 37.8 % (35.4-49) D 07/13/17 05:15 MCV 89.5 fl (80-96) 07/13/17 05:15 MCHC 33.9 g/dl (32.0-35.9) 07/13/17 05:15 RDW 14.5 % (11.9-15.9) 07/13/17 05:15 Plt Count 236 K/MM3 (134-434) 07/13/17 05:15 MPV 7.8 fl (7.5-11.1) 07/13/17 05:15 CMP Sodium 144 mmol/L (136-145) 07/13/17 05:15 Potassium 3.2 mmol/L (3.5-5.1) L D 07/13/17 05:15 Chloride 112 mmol/L (98-107) H 07/13/17 05:15 Carbon Dioxide 27 mmol/L (21-32) D 07/13/17 05:15 Anion Gap 5 (8-16) L 07/13/17 05:15 BUN 14 mg/dL (7-18) 07/13/17 05:15 Creatinine 0.3 mg/dL (0.7-1.3) L D 07/13/17 05:15 Creat Clearance w eGFR > 60 (>60) 07/12/17 01:02 Random Glucose 85 mg/dL (74-106) 07/13/17 05:15 Calcium 7.9 mg/dL (8.5-10.1) L 07/13/17 05:15 Total Bilirubin 0.7 mg/dL (0.2-1.0) 07/12/17 01:02 AST 19 U/L (15-37) D 07/12/17 01:02 ALT 18 U/L (12-78) 07/12/17 01:02 Alkaline Phosphatase 90 U/L (45-117) 07/12/17 01:02 Total Protein 6.6 g/dl (6.4-8.2) 07/12/17 01:02 Albumin 2.8 g/dl (3.4-5.0) L 07/12/17 01:02 CARDIAC ENZYMES Creatine Kinase 51 IU/L (39-308) 07/11/17 21:20 Troponin I < 0.02 ng/ml (0.00-0.05) 07/11/17 21:20 22yom with spastic CP, macrocephaly, 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
--- NOTE | 2017-07-13 09:12 | PN ---
Physical Exam: SUBJECTIVE: Patient seen and examined OBJECTIVE: Vital Signs Period Temp Pulse Resp BP Sys/Lyons Pulse Ox Last 24 Hr 98.4 F-100 F 112-132 20-26 95-123/50-83 97-99 GENERAL: The patient is awake, , in mild distress, diaphoretic and rubbing right side abdomen. 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 EYES: PERRL, sclera anicteric, conjunctiva clear. ENT: Ears normal, nares patent, oropharynx clear without exudates, moist mucous membranes. NECK: supple. LUNGS: Breath sounds equal, clear to auscultation bilaterally, no wheezes, no crackles, no accessory muscle use. HEART: Tachycardic, S1, S2 without murmur, rub or gallop. ABDOMEN:Distended, absent bowel sounds, no guarding, no rebound, hepatosplenomegaly not appreciated, no masses. EXTREMITIES: Deformed, atophic muscles and contracted at knees with external rotation of hip b/l. 2+ pulses, warm, well-perfused, no edema. NEUROLOGICAL: Severe mental retardation. SKIN: Warm, dry, normal turgor, fine papular rash on face. Laboratory Results - last 24 hr 07/12/17 07/12/17 07/12/17 01:33 07:32 09:40 WBC RBC Hgb Hct MCV MCH MCHC RDW Plt Count MPV ESR PTT (Actin FS) Sodium Potassium Chloride Carbon Dioxide Anion Gap BUN Creatinine POC Glucometer 117.69394 [phone] Random Glucose Lactic Acid 3.4 H* Calcium Phosphorus Magnesium 07/12/17 07/12/17 07/12/17 11:44 18:11 22:14 WBC RBC Hgb Hct MCV MCH MCHC RDW Plt Count MPV ESR PTT (Actin FS) Sodium Potassium Chloride Carbon Dioxide Anion Gap BUN Creatinine POC Glucometer 142.18568 98.44613 109.42746 Random Glucose Lactic Acid Calcium Phosphorus Magnesium 07/13/17 07/13/17 07/13/17 05:15 05:15 05:15 WBC 6.9 D RBC 4.23 D Hgb 12.8 D Hct 37.8 D MCV 89.5 MCH 30.3 MCHC 33.9 RDW 14.5 Plt Count 236 MPV 7.8 ESR 80 H PTT (Actin FS) Sodium 144 Potassium 3.2 L D Chloride 112 H Carbon Dioxide 27 D Anion Gap 5 L BUN 14 Creatinine 0.3 L D POC Glucometer Random Glucose 85 Lactic Acid Calcium 7.9 L Phosphorus 1.7 L D Magnesium 2.1 07/13/17 07/13/17 05:15 05:15 WBC RBC Hgb Hct MCV MCH MCHC RDW Plt Count MPV ESR PTT (Actin FS) 49.3 H D Sodium Potassium Chloride Carbon Dioxide Anion Gap BUN Creatinine POC Glucometer Random Glucose Lactic Acid 1.2 Calcium Phosphorus Magnesium Active Medications Generic Name Dose Route Start Last Admin Trade Name Freq PRN Reason Stop Dose Admin Chlorhexidine Gluconate 1 applic 07/12/17 22:00 07/12/17 21:37 Hibiclens For Decolonization - TP 1 applic HS ELISHA Administration Heparin Sodium (Porcine) 5,000 unit 07/12/17 06:00 07/13/17 05:33 Heparin - SQ 5,000 unit TID ELISHA Administration Sodium Chloride 1,000 mls @ 125 mls/hr 07/12/17 01:00 07/13/17 01:00 Normal Saline - IV 125 mls/hr ASDIR ELISHA Administration Piperacillin Sod/Tazobactam Sod 100 mls @ 200 mls/hr 07/12/17 10:00 07/13/17 02 :00 Zosyn 4.5gm Ivpb (Pre-Docked) IVPB 200 mls/hr Q8H-IV ELISHA Administration Protocol Vancomycin HCl 250 mls @ 166.667 mls/hr 07/12/17 10:00 07/12/17 21:37 Vancomycin (Pre-Docked) IVPB 166.667 mls/hr BID ELISHA Administration Protocol Insulin Aspart 1 vial 07/12/17 07:00 07/13/17 06:21 Novolog Vial Sliding Scale - SQ Not Given ACHS ELISHA Protocol Metoclopramide HCl 10 mg 07/12/17 09:30 07/13/17 03:20 Reglan Injection - IVPB 10 mg Q6H ELISHA Administration Morphine Sulfate 1 mg 07/12/17 15:19 07/13/17 04:01 Morphine Injection - IVPUSH 1 mg Q3H PRN Administration PAIN Mupirocin 1 applic 07/12/17 10:00 07/12/17 21:37 Bactroban Ointment (For Decolonization) - NS 07/17/17 09:59 1 applic BID ELISHA Administration ASSESSMENT/PLAN: Problem List - Problems (1) SBO (small bowel obstruction) Assessment/Plan: with continued distention and 500cc bilious drainage from NGT since morning Continue NGT Surgery consult: spoke with Dr Rosen, he will see the patient. 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 Repeat Phosphorus and K+ in am. Code(s): E83.39 - OTHER DISORDERS OF PHOSPHORUS METABOLISM (5) Hypokalemia Code(s): E87.6 - HYPOKALEMIA Visit type - Emergency Visit Emergency Visit: Yes ED Registration Date: 07/11/17 Care time: The patient presented to the Emergency Department on the above date and was hospitalized for further evaluation of their emergent condition. - New Patient This patient is new to me today: Yes Date on this admission: 07/13/17 - Critical Care Critical Care patient: Yes Total Critical Care Time (in minutes): 55 Critical Care Statement: The care of this patient involved high complexity decision making to prevent further life threatening deterioration of the patient 's condition and/or to evaluate & treat vital organ system(s) failure or risk of failure. - Discharge Referral Referred to [facility] Med P.C.: No
[2017-07-13] MEDS: VANCOMYCIN 1 GRAM (PRE-DOCKED) 250 ML IVPB SCH ×2 (09:25→22:31)
--- NOTE | 2017-07-13 10:11 | PN ---
Progress Note, Physician History of Present Illness: Awake, non verbal No acute distress Breathing non labored Temps, WBC improved BC GPCCL - Current Medication List Current Medications: Active Medications Chlorhexidine Gluconate (Hibiclens For Decolonization -) 1 applic TP HS [facility] Last Admin: 07/12/17 21:37 Dose: 1 applic Heparin Sodium (Porcine) (Heparin -) 5,000 unit SQ TID [facility] Last Admin: 07/13/17 05:33 Dose: 5,000 unit Sodium Chloride (Normal Saline -) 1,000 mls @ 125 mls/hr IV ASDIR [facility] Last Admin: 07/13/17 01:00 Dose: 125 mls/hr Piperacillin Sod/Tazobactam Sod (Zosyn 4.5gm Ivpb (Pre-Docked)) 100 mls @ 200 mls/hr IVPB Q8H-IV ELISHA PRN Reason: Protocol Last Admin: 07/13/17 09:25 Dose: 200 mls/hr Vancomycin HCl (Vancomycin (Pre-Docked)) 250 mls @ 166.667 mls/hr IVPB BID ELISHA PRN Reason: Protocol Last Admin: 07/13/17 09:25 Dose: 166.667 mls/hr Insulin Aspart (Novolog Vial Sliding Scale -) 1 vial SQ ACHS ELISHA PRN Reason: Protocol Last Admin: 07/13/17 06:21 Dose: Not Given Metoclopramide HCl (Reglan Injection -) 10 mg IVPB Q6H [facility] Last Admin: 07/13/17 09:25 Dose: 10 mg Morphine Sulfate (Morphine Injection -) 1 mg IVPUSH Q3H PRN PRN Reason: PAIN Last Admin: 07/13/17 04:01 Dose: 1 mg Mupirocin (Bactroban Ointment (For Decolonization) -) 1 applic NS BID [facility] Stop: 07/17/17 09:59 Last Admin: 07/12/17 21:37 Dose: 1 applic - Objective Vital Signs: Vital Signs Temperature 98.4 F 07/13/17 06:00 Pulse Rate 112 H 07/13/17 08:00 Respiratory Rate 20 07/13/17 08:00 Blood Pressure 112/56 07/13/17 08:00 O2 Sat by Pulse Oximetry (%) 99 07/13/17 09:00 Constitutional: Yes: No Distress Eyes: Yes: Conjunctiva Clear HENT: Yes: Other (+ hydrocephalus) Cardiovascular: Yes: Regular Rate and Rhythm, Tachycardia, S1, S2 Respiratory: Yes: Diminished Gastrointestinal: Yes: Normal Bowel Sounds, Soft, Other (distended no tenderness elicited) Edema: Yes Edema: LLE: 1+, RLE: 1+ Labs: CBC, BMP 07/13/17 05:15 07/13/17 05:15 INR, PTT INR 1.97 (0.82-1.09) H 07/12/17 01:02 Assessment/Plan Sepsis possible sources GI, pulmonary, + BC GPCCL SBO Bibasilar infiltrates Fever/ leukocytosis- improved Hydrocephalus/ mental retardation Will repeat BC x 2 Add vancomycin Continue zosyn
[2017-07-13] MEDS: MUPIROCIN 2% TOPICAL OINTMENT FOR DECOLONIZATION NS SCH ×2 (10:26→22:32)
[2017-07-13] MEDS ORDERED: VANCOMYCIN 1,000 MG in DEXTROSE 5%-WATER - 250 ML IVPB SCH (10:30)
[2017-07-13] MEDS ORDERED: POTASSIUM PHOSPHATE 30 MM in SODIUM CHLORIDE 250 ML IVPB ONE (15:39)
--- NOTE | 2017-07-13 20:16 | CONSULT ---
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: Yes: Seizure, Other (Macrocephaly) Musculoskeletal: Yes: Paraplegia - Alcohol/Substance Use Hx Alcohol Use: No - Smoking History Smoking history: Unknown if ever smoked Have you smoked in the past 12 months: No Home Medications - Allergies Allergies/Adverse Reactions: Allergies Allergy/AdvReac Type Severity Reaction Status Date / Time No Known Allergies Allergy Verified 07/29/16 20:28 - Home Medications Home Medications: Ambulatory Orders Calcium Carbonate 1 gm PO DAILY 07/29/16 Carbamazepine 700 mg PO TID 07/29/16 Mineral Oil/Petrolatum,White [Artificial Tears Eye Ointment] 3.5 gm OP HS Multivitamin [Poly-Vitamin] 10 ml PO DAILY 07/29/16 Phenobarbital Liquid - [Phenobarbital Liquid 20 MG/5 ML -] 97.2 mg PO AM Phenobarbital Liquid - [Phenobarbital Liquid 20 MG/5 ML -] 148.8 mg PO HS Polyethylene Glycol 3350 [Gavilax] 17 gm PO HS 07/29/16 Family Disease History - Family Disease History Family History: Unable to Obtain Review of Systems Unable to obtain ROS, reason: Clinical condition Physical Exam Vital Signs: Vital Signs Temperature 99.8 F H 07/13/17 18:00 Pulse Rate 104 H 07/13/17 18:00 Respiratory Rate 18 07/13/17 18:00 Blood Pressure 130/84 07/13/17 18:00 O2 Sat by Pulse Oximetry (%) 96 07/13/17 10:56 Constitutional: Yes: Calm Cardiovascular: Yes: WNL Respiratory: Yes: Diminished Gastrointestinal: Yes: Soft, Distention. No: Tenderness, Rebound Labs: CBC, BMP 07/13/17 05:15 07/13/17 05:15 Imaging - Results Cat Scan: Report Reviewed, Image Reviewed Problem List - Problems (1) Distended abdomen Code(s): R14.0 - ABDOMINAL DISTENSION (GASEOUS) (2) SBO (small bowel obstruction) Code(s): K56.69 - OTHER INTESTINAL OBSTRUCTION Assessment/Plan 22 male with dilated bowel loops Ileus vs bowel obstruction No discrete transition point noted on CT NG tube flushed- functioning Abdomen soft, mildly tympanic, no rebound Continue NG tube, rectal tube Electrolyte replacement Serial AXRs No emergent exploratory laparotomy needed at this time Will follow
--- NOTE | 2017-07-13 21:34 | EKG ---
Test Reason : Blood Pressure : / mmHG Vent. Rate : 139 BPM Atrial Rate : 139 BPM P-R Int : 134 ms QRS Dur : 084 ms QT Int : 294 ms P-R-T Axes : 053 096 034 degrees QTc Int : 447 ms SINUS TACHYCARDIA RIGHTWARD AXIS LA DEPRESSION ST ELEVATION, CONSIDER EARLY REPOLARIZATION, PERICARDITIS, OR INJURY CANNOT RULE OUT ANTERIOR INFARCT , AGE UNDETERMINED ABNORMAL ECG WHEN COMPARED WITH ECG OF 29-JUL-2016 20:42, NONSPECIFIC ST ABNORMALITY IS NOW PRESENT QRS VOLTAGE HAS DECREASED IN LATERAL LEADS Confirmed by ROBERT HARRISON MD ([id number]) on 07/13/2017 9:33:45 PM Referred By: Confirmed By:ROBERT HARRISON MD
[2017-07-13] MEDS: CHLORHEXIDINE GLUCONATE 4% CLEANSER FOR DECOLONIZATION TP SCH (22:33)
[2017-07-14] MEDS: SODIUM CHLORIDE 1,000 ML IV SCH (01:00)
[2017-07-14] MEDS: PIPERACILLIN/TAZOB 4.5 GM 100 ML IVPB SCH ×3 (02:00→17:20)
[2017-07-14] MEDS: METOCLOPRAMIDE HCL INJECTION 10 MG/2 ML VIAL IVPB SCH ×4 (03:46→21:38)
[2017-07-14 06:04] LABS: INR 1.51 (0.82-1.09); PROTHROMBIN TIME (PATIENT) 16.7 SEC (9.98-11.88)
[2017-07-14] MEDS: INSULIN SLIDING SCALE (NOVOLOG) 1 VIAL SQ SCH ×4 (06:09→21:52)
[2017-07-14] MEDS: HEPARIN NA (PORCINE) 5,000 UNITS/ML 1ML VIAL SQ SCH ×3 (06:09→21:38)
[2017-07-14 06:13] LABS: ALBUMIN 2.2 g/dl (3.4-5.0); ALK PHOS 67 U/L (45-117); ANION GAP 12 (8-16); BILIRUBIN,TOTAL 1.2 mg/dL (0.2-1.0); CALCIUM 7.6 mg/dL (8.5-10.1); CO2 26 mmol/L (21-32); CREATININE < 0.2 mg/dL (0.7-1.3); GLUCOSE,RANDOM 78 mg/dL (74-106); PHOSPHOROUS 2.2 mg/dL (2.5-4.9); SGOT/AST 12 U/L (15-37); SGPT/ALT 12 U/L (12-78); TOT PROT 5.6 g/dl (6.4-8.2)
--- NOTE | 2017-07-14 07:32 | PN ---
Progress Note, Physician Chief Complaint: ID ICU followup for this 22 year old male with severe developmental delay from the [facility] who I saw in consultation 2 days ago for valuation and treatment of sepsis syndrome. Antibiotic currently PIP TAZO with addition of Vancomycin based on a blood culture as of yesterday. Seen by Dr Rosen with impression of SBO vs ileus. Low grade fevers noted. Can offer no history. - Current Medication List Current Medications: Active Medications Chlorhexidine Gluconate (Hibiclens For Decolonization -) 1 applic TP HS [facility] Last Admin: 07/13/17 22:33 Dose: 1 applic Heparin Sodium (Porcine) (Heparin -) 5,000 unit SQ TID [facility] Last Admin: 07/14/17 06:09 Dose: 5,000 unit Sodium Chloride (Normal Saline -) 1,000 mls @ 125 mls/hr IV ASDIR [facility] Last Admin: 07/14/17 01:00 Dose: 125 mls/hr Piperacillin Sod/Tazobactam Sod (Zosyn 4.5gm Ivpb (Pre-Docked)) 100 mls @ 200 mls/hr IVPB Q8H-IV ELISHA PRN Reason: Protocol Last Admin: 07/14/17 02:00 Dose: 200 mls/hr Vancomycin HCl (Vancomycin (Pre-Docked)) 250 mls @ 166.667 mls/hr IVPB Q12H [facility] Last Admin: 07/13/17 22:31 Dose: 166.667 mls/hr Potassium Chloride (Potassium Chloride 10 Meq Premix Ivpb -) 100 mls @ 100 mls/ hr IVPB Q60M [facility] Stop: 07/14/17 10:59 Insulin Aspart (Novolog Vial Sliding Scale -) 1 vial SQ ACHS ELISHA PRN Reason: Protocol Last Admin: 07/14/17 06:09 Dose: Not Given Metoclopramide HCl (Reglan Injection -) 10 mg IVPB Q6H [facility] Last Admin: 07/14/17 03:46 Dose: 10 mg Morphine Sulfate (Morphine Injection -) 1 mg IVPUSH Q3H PRN PRN Reason: PAIN Last Admin: 07/13/17 22:33 Dose: 1 mg Mupirocin (Bactroban Ointment (For Decolonization) -) 1 applic NS BID [facility] Stop: 07/17/17 09:59 Last Admin: 07/13/17 22:32 Dose: 1 applic - Objective Vital Signs: Vital Signs Temperature 99.4 F 07/14/17 06:00 Pulse Rate 102 H 07/14/17 06:00 Respiratory Rate 16 07/14/17 06:00 Blood Pressure 111/67 07/14/17 06:00 O2 Sat by Pulse Oximetry (%) 96 07/13/17 20:00 Constitutional: Yes: No Distress Eyes: Yes: Conjunctiva Clear HENT: Yes: Other (Profound hydrocephalus). No: Normocephalic Cardiovascular: Yes: Regular Rate and Rhythm, S1, S2. No: Murmur Respiratory: Yes: WNL, Regular, CTA Bilaterally, Diminished, Rhonchi. No: Rales Gastrointestinal: Yes: Normal Bowel Sounds, Soft, Distention. No: Tenderness, Tenderness, Epigastrium, Tenderness, Rebound Musculoskeletal: Yes: Other (Contractures) Edema: No Labs: CBC, BMP 07/13/17 05:15 07/14/17 05:00 INR, PTT INR 1.51 (0.82-1.09) H 07/14/17 05:00 Problem List - Problems (1) Sepsis Code(s): A41.9 - SEPSIS, UNSPECIFIED ORGANISM (2) UTI (urinary tract infection) Code(s): N39.0 - URINARY TRACT INFECTION, SITE NOT SPECIFIED (3) Respiratory failure Code(s): J96.90 - RESPIRATORY FAILURE, UNSP, UNSP W HYPOXIA OR HYPERCAPNIA (4) Gram-positive bacteremia Code(s): R78.81 - BACTEREMIA Assessment/Plan Microbiology 07/11/17 20:48 Urine - Urine Clean Catch Urine Culture - Final Contaminated: Please Repeat 07/11/17 20:30 Blood - Peripheral Venous Blood Culture - Preliminary Pending Organism 07/11/17 20:30 Blood - Peripheral Venous Blood Culture - Preliminary Pending Organism Laboratory Tests 07/11/17 07/11/17 07/13/17 20:30 20:48 05:15 WBC 25.0 H D 6.9 D Hgb 12.8 D Hct 37.8 D Plt Count 236 INR Sodium Potassium Creatinine Creat Clearance w eGFR Total Bilirubin AST Total Protein Albumin Ur Leukocyte Esterase 1+ H Urine RBC 34 Urine WBC 114 07/14/17 07/14/17 05:00 05:00 WBC Hgb Hct Plt Count INR 1.51 H Sodium 150 H Potassium 2.7 L* Creatinine < 0.2 L D Creat Clearance w eGFR > 60 Total Bilirubin 1.2 H D AST 12 L D Total Protein 5.6 L Albumin 2.2 L D Ur Leukocyte Esterase Urine RBC Urine WBC Assessment Sepsis syndrome improved since admission Urinary tract infection ( urine c/s contaminated) Gram positive bacteremia with identification pending on Vancomycin Small bowel ileus with CHIROPRACTIC ASSISTANT sununt and small free fluid seen on CT. No free air to suggest perforation of the CHIROPRACTIC ASSISTANT shunt bowel perf Severe hypokalemia Profound mental retardation and developmental delay Plan Continue vancomycin Check Vanco trough level 3rd dose Zosyn will cover urinary tract as well as providing intrabdominal coverage K replacement ( from NG suction along with Zosyn causing low K) Await final blood cultures report Repeat urine c/s Critical care time(YES) spent 40 minutes Santy SCHULZ
[2017-07-14] MEDS: KCL 10 MEQ IVPB 100 ML IVPB SCH ×6 (08:35→20:45)
[2017-07-14] MEDS: VANCOMYCIN 1 GRAM (PRE-DOCKED) 250 ML IVPB SCH ×2 (09:30→21:38)
--- NOTE | 2017-07-14 11:02 | PN ---
Progress Note (short form) - Note Progress Note: No new events In ICU NG tube in place Vital Signs Period Temp Pulse Resp BP Sys/Lyons Pulse Ox Last 24 Hr 99.4 F-100 F 96-118 16-18 95-132/43-84 96-100 NG tube flushed Abd softer, no rebound CBC, BMP 07/13/17 05:15 07/14/17 05:00 Replace K NG tube Rectal tube Serial abdominal exams No emergent surgery needed at this time Problem List - Problems (1) Distended abdomen Code(s): R14.0 - ABDOMINAL DISTENSION (GASEOUS) (2) SBO (small bowel obstruction) Code(s): K56.69 - OTHER INTESTINAL OBSTRUCTION
--- NOTE | 2017-07-14 13:21 | PN ---
Physical Exam: SUBJECTIVE: Patient seen and examined OBJECTIVE: Vital Signs Period Temp Pulse Resp BP Sys/Lyons Pulse Ox Last 24 Hr 99.4 F-100 F 83-118 16-18 95-132/43-96 96-100 GENERAL: The patient is awake, alert, and fully oriented, in no acute distress. HEAD: Normal with no signs of trauma. EYES: PERRL, extraocular movements intact, sclera anicteric, conjunctiva clear. No ptosis. ENT: Ears normal, nares patent, oropharynx clear without exudates, moist mucous membranes. NECK: Trachea midline, full range of motion, supple. LUNGS: Breath sounds equal, clear to auscultation bilaterally, no wheezes, no crackles, no accessory muscle use. HEART: Regular rate and rhythm, S1, S2 without murmur, rub or gallop. ABDOMEN: Soft, nontender, nondistended, normoactive bowel sounds, no guarding, no rebound, no hepatosplenomegaly, no masses. EXTREMITIES: 2+ pulses, warm, well-perfused, no edema. NEUROLOGICAL: Cranial nerves II through XII grossly intact. Normal speech, gait not observed. PSYCH: Normal mood, normal affect. SKIN: Warm, dry, normal turgor, no rashes or lesions noted Laboratory Results - last 24 hr 07/13/17 07/13/17 07/13/17 13:47 16:51 23:28 INR Sodium Potassium Chloride Carbon Dioxide Anion Gap BUN Creatinine Creat Clearance w eGFR POC Glucometer 91.19372 80.57658 94.52775 Random Glucose Calcium Phosphorus Total Bilirubin AST ALT Alkaline Phosphatase Total Protein Albumin 07/14/17 07/14/17 05:00 05:00 INR 1.51 H Sodium 150 H Potassium 2.7 L* Chloride 112 H Carbon Dioxide 26 Anion Gap 12 BUN 9 D Creatinine < 0.2 L D Creat Clearance w eGFR > 60 POC Glucometer Random Glucose 78 Calcium 7.6 L Phosphorus 2.2 L D Total Bilirubin 1.2 H D AST 12 L D ALT 12 D Alkaline Phosphatase 67 D Total Protein 5.6 L Albumin 2.2 L D Active Medications Generic Name Dose Route Start Last Admin Trade Name Freq PRN Reason Stop Dose Admin Chlorhexidine Gluconate 1 applic 07/12/17 22:00 07/13/17 22:33 Hibiclens For Decolonization - TP 1 applic HS ELISHA Administration Heparin Sodium (Porcine) 5,000 unit 07/12/17 06:00 07/14/17 13:16 Heparin - SQ 5,000 unit TID ELISHA Administration Sodium Chloride 1,000 mls @ 125 mls/hr 07/12/17 01:00 07/14/17 01:00 Normal Saline - IV 125 mls/hr ASDIR ELISHA Administration Piperacillin Sod/Tazobactam Sod 100 mls @ 200 mls/hr 07/12/17 10:00 07/14/17 09 :29 Zosyn 4.5gm Ivpb (Pre-Docked) IVPB 200 mls/hr Q8H-IV ELISHA Administration Protocol Vancomycin HCl 250 mls @ 166.667 mls/hr 07/13/17 10:30 07/14/17 09:30 Vancomycin (Pre-Docked) IVPB 166.667 mls/hr Q12H ELISHA Administration Insulin Aspart 1 vial 07/12/17 07:00 07/14/17 12:51 Novolog Vial Sliding Scale - SQ Not Given ACHS ELISHA Protocol Metoclopramide HCl 10 mg 07/12/17 09:30 07/14/17 08:35 Reglan Injection - IVPB 10 mg Q6H ELISHA Administration Morphine Sulfate 1 mg 07/12/17 15:19 07/13/17 22:33 Morphine Injection - IVPUSH 1 mg Q3H PRN Administration PAIN Mupirocin 1 applic 07/12/17 10:00 07/13/17 22:32 Bactroban Ointment (For Decolonization) - NS 07/17/17 09:59 1 applic BID ELISHA Administration ASSESSMENT/PLAN:
--- NOTE | 2017-07-14 13:30 | PN ---
Teaching Attending Note Name of Resident: Celia Hidalgo ATTENDING PHYSICIAN STATEMENT I saw and evaluated the patient. I reviewed the resident's note and discussed the case with the resident. I agree with the resident's findings and plan as documented. SUBJECTIVE: Pt seen and examined in the ICU. No fevers recorded. NGT with dark brown drainage. OBJECTIVE: Last Vital Signs Temp Pulse Resp BP Pulse Ox 99.6 F 83 18 112/96 100 07/14/17 10:00 07/14/17 12:00 07/14/17 12:00 07/14/17 12:00 07/14/17 09:35 Intake & Output 07/11/17 07/12/17 07/13/17 07/14/17 23:59 23:59 23:59 23:59 Intake Total 4270 3500 1850 Output Total 5600 2650 1200 Balance -1330 850 650 Weight 177 lb 1.6 oz 188 lb 9.6 oz 188 lb Gen: mildly diaphoretic Heart: RRR Lung: decreased breath sounds at the bases Abd: soft, nontender Ext: no edema CBC, BMP 07/13/17 05:15 07/14/17 05:00 Active Medications Chlorhexidine Gluconate (Hibiclens For Decolonization -) 1 applic TP HS [facility] Last Admin: 07/13/17 22:33 Dose: 1 applic Heparin Sodium (Porcine) (Heparin -) 5,000 unit SQ TID [facility] Last Admin: 07/14/17 13:16 Dose: 5,000 unit Sodium Chloride (Normal Saline -) 1,000 mls @ 125 mls/hr IV ASDIR [facility] Last Admin: 07/14/17 01:00 Dose: 125 mls/hr Piperacillin Sod/Tazobactam Sod (Zosyn 4.5gm Ivpb (Pre-Docked)) 100 mls @ 200 mls/hr IVPB Q8H-IV ELISHA PRN Reason: Protocol Last Admin: 07/14/17 09:29 Dose: 200 mls/hr Vancomycin HCl (Vancomycin (Pre-Docked)) 250 mls @ 166.667 mls/hr IVPB Q12H [facility] Last Admin: 07/14/17 09:30 Dose: 166.667 mls/hr Insulin Aspart (Novolog Vial Sliding Scale -) 1 vial SQ ACHS ELISHA PRN Reason: Protocol Last Admin: 07/14/17 12:51 Dose: Not Given Metoclopramide HCl (Reglan Injection -) 10 mg IVPB Q6H [facility] Last Admin: 07/14/17 08:35 Dose: 10 mg Morphine Sulfate (Morphine Injection -) 1 mg IVPUSH Q3H PRN PRN Reason: PAIN Last Admin: 07/13/17 22:33 Dose: 1 mg Mupirocin (Bactroban Ointment (For Decolonization) -) 1 applic NS BID [facility]IS[facility] Stop: 07/17/17 09:59 Last Admin: 07/13/17 22:32 Dose: 1 applic ASSESSMENT AND PLAN: Small Bowel Obstruction Staph Bacteremia UTI Sepsis Lactic Acidosis resolved Cerebral Palsy Hydrocephalus s/p BAND HEAD SAW OPERATOR shunt - continue antibiotics - f/u repeat cultures - NGT to ILWS - change IVF to D51/2 with 40mEq KCl - monitor lytes - aspiration precautions - DVT prophylaxis critical care time spent in reviewing chart, evaluating patient and formulating plan 35 min
--- NOTE | 2017-07-14 14:27 | HP ---
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 Allergies No Known Allergies Allergy (Verified 07/29/16 20:28) HOME MEDICATIONS: Home Medications Medication Instructions Recorded Calcium Carbonate 1 gm PO DAILY 07/29/16 Carbamazepine 700 mg PO TID 07/29/16 Mineral Oil/Petrolatum,White 3.5 gm OP HS 07/29/16 [Artificial Tears Eye Ointment] Multivitamin [Poly-Vitamin] 10 ml PO DAILY 07/29/16 Phenobarbital Liquid - 97.2 mg PO AM 07/29/16 [Phenobarbital Liquid 20 MG/5 ML -] Phenobarbital Liquid - 148.8 mg PO HS 07/29/16 [Phenobarbital Liquid 20 MG/5 ML -] Polyethylene Glycol 3350 [Gavilax] 17 gm PO HS 07/29/16 PHYSICAL EXAMINATION Vital Signs - 24 hr 07/13/17 07/13/17 07/13/17 16:00 18:00 20:00 Temperature 99.5 F 99.8 F H 100 F H Pulse Rate 112 H 104 H 114 H Respiratory 18 18 18 Rate Blood Pressure 120/74 130/84 124/54 O2 Sat by Pulse 96 Oximetry (%) 07/13/17 07/14/17 07/14/17 22:00 00:00 02:00 Temperature 99.8 F H 99.6 F 99.4 F Pulse Rate 118 H 103 H 104 H Respiratory 18 18 16 Rate Blood Pressure 128/76 107/52 117/59 O2 Sat by Pulse Oximetry (%) 07/14/17 07/14/17 07/14/17 04:00 06:00 08:00 Temperature 99.4 F 99.4 F Pulse Rate 108 H 102 H 100 H Respiratory 16 16 18 Rate Blood Pressure 95/43 111/67 132/70 O2 Sat by Pulse Oximetry (%) 07/14/17 07/14/17 07/14/17 09:00 09:21 09:35 Temperature Pulse Rate 109 H Respiratory Rate Blood Pressure O2 Sat by Pulse 99 99 100 Oximetry (%) 07/14/17 07/14/17 10:00 12:00 Temperature 99.6 F Pulse Rate 96 H 83 Respiratory 18 18 Rate Blood Pressure 124/82 112/96 O2 Sat by Pulse Oximetry (%) GENERAL: Non-verbal, lethargic, diaphoretic HEAD: hydrocephalus EYES: Pupils equal, round and reactive to light, extraocular movements intact, sclera anicteric, conjunctiva clear. No lid lag. LUNGS: Rales, ronchi, wheezes HEART: Regular rate and rhythm, normal S1 and S2 without murmur, rub or gallop. ABDOMEN:distended, tympanic MUSCULOSKELETAL: spastic Laboratory Results - last 24 hr 07/13/17 07/13/17 07/13/17 13:47 16:51 23:28 INR Sodium Potassium Chloride Carbon Dioxide Anion Gap BUN Creatinine Creat Clearance w eGFR POC Glucometer 91.96282 80.64598 94.18425 Random Glucose Calcium Phosphorus Total Bilirubin AST ALT Alkaline Phosphatase Total Protein Albumin 07/14/17 07/14/17 07/14/17 05:00 05:00 05:32 INR 1.51 H Sodium 150 H Potassium 2.7 L* Chloride 112 H Carbon Dioxide 26 Anion Gap 12 BUN 9 D Creatinine < 0.2 L D Creat Clearance w eGFR > 60 POC Glucometer 94.52073 Random Glucose 78 Calcium 7.6 L Phosphorus 2.2 L D Total Bilirubin 1.2 H D AST 12 L D ALT 12 D Alkaline Phosphatase 67 D Total Protein 5.6 L Albumin 2.2 L D ASSESSMENT/PLAN: Respiratory: - pneumonia: Continue empirical therapy with Vanc-zosyn. Follow up on culture repeats and sensitivities. and follow up onAspiration precautions. - Albuterol nebs PRN Renal: Hypokalemia - Change IVF to D5 1/2 with 40 mEq KCl and reassess bmp GI: continue NG tube to ILWS Aspiration precaution, DVT prophylaxis Visit type - Emergency Visit Emergency Visit: No - New Patient This patient is new to me today: Yes Date on this admission: 07/14/17 - Critical Care Critical Care patient: Yes Total Critical Care Time (in minutes): 60 Critical Care Statement: The care of this patient involved high complexity decision making to prevent further life threatening deterioration of the patient 's condition and/or to evaluate & treat vital organ system(s) failure or risk of failure.
[2017-07-14] MEDS ORDERED: D5-1/2NS+40 MEQ KCL - 1,000 ML IV SCH (14:45)
[2017-07-14] MEDS: MUPIROCIN 2% TOPICAL OINTMENT FOR DECOLONIZATION NS SCH ×2 (15:01→21:29)
--- NOTE | 2017-07-14 15:40 | PN ---
Progress Note (short form) - Note Progress Note: Subjective: The patient was seen and examined at the bedside, he is non-verbal NGT with dark brown drainage Current Medications Generic Name Dose Route Start Last Admin Trade Name Petra PRN Reason Stop Dose Admin Chlorhexidine Gluconate 1 applic 07/12/17 22:00 07/13/17 22:33 Hibiclens For Decolonization - TP 1 applic HS ELISHA Administration Heparin Sodium (Porcine) 5,000 unit 07/12/17 06:00 07/14/17 13:16 Heparin - SQ 5,000 unit TID ELISHA Administration Sodium Chloride 1,000 mls @ 125 mls/hr 07/12/17 01:00 07/14/17 01:00 Normal Saline - IV 125 mls/hr ASDIR ELISHA Administration Piperacillin Sod/Tazobactam Sod 100 mls @ 200 mls/hr 07/12/17 10:00 07/14/17 09 :29 Zosyn 4.5gm Ivpb (Pre-Docked) IVPB 200 mls/hr Q8H-IV ELISHA Administration Protocol Vancomycin HCl 250 mls @ 166.667 mls/hr 07/13/17 10:30 07/14/17 09:30 Vancomycin (Pre-Docked) IVPB 166.667 mls/hr Q12H ELISHA Administration Insulin Aspart 1 vial 07/12/17 07:00 07/14/17 12:51 Novolog Vial Sliding Scale - SQ Not Given ACHS ELISHA Protocol Metoclopramide HCl 10 mg 07/12/17 09:30 07/14/17 08:35 Reglan Injection - IVPB 10 mg Q6H ELISHA Administration Morphine Sulfate 1 mg 07/12/17 15:19 07/13/17 22:33 Morphine Injection - IVPUSH 1 mg Q3H PRN Administration PAIN Mupirocin 1 applic 07/12/17 10:00 07/13/17 22:32 Bactroban Ointment (For Decolonization) - NS 07/17/17 09:59 1 applic BID ELISHA Administration Objective: Vital Signs Period Temp Pulse Resp BP Sys/Lyons Pulse Ox Last 24 Hr 99.4 F-100 F 83-118 16-18 95-132/43-96 96-100 Physical Exam: General: NAD, non-verbal HEENT: macrocephalic, pupils are sluggish, oropharynx clear without exudates, moist mucous membranes. NECK: Trachea midline, full range of motion, supple. LUNGS: diminished left lung, no wheezes, no crackles, no accessory muscle use. HEART: Regular rate and rhythm, S1, S2 without murmur, rub or gallop. ABDOMEN: Soft, distended. Hypoactive bowel sounds EXTREMITIES: 2+ pulses, warm, well-perfused, no edema. contracted arms, club feet NEUROLOGICAL: non verbal, weakness in all ext, gait not observed SKIN: Warm, dry, normal turgor, no rashes or lesions noted CBCD WBC 6.9 K/mm3 (4.0-10.0) D 07/13/17 05:15 RBC 4.23 M/mm3 (4.00-5.60) D 07/13/17 05:15 Hgb 12.8 GM/dL (11.7-16.9) D 07/13/17 05:15 Hct 37.8 % (35.4-49) D 07/13/17 05:15 MCV 89.5 fl (80-96) 07/13/17 05:15 MCHC 33.9 g/dl (32.0-35.9) 07/13/17 05:15 RDW 14.5 % (11.9-15.9) 07/13/17 05:15 Plt Count 236 K/MM3 (134-434) 07/13/17 05:15 MPV 7.8 fl (7.5-11.1) 07/13/17 05:15 CMP Sodium 150 mmol/L (136-145) H 07/14/17 05:00 Potassium 2.7 mmol/L (3.5-5.1) L* 07/14/17 05:00 Chloride 112 mmol/L (98-107) H 07/14/17 05:00 Carbon Dioxide 26 mmol/L (21-32) 07/14/17 05:00 Anion Gap 12 (8-16) 07/14/17 05:00 BUN 9 mg/dL (7-18) D 07/14/17 05:00 Creatinine < 0.2 mg/dL (0.7-1.3) L D 07/14/17 05:00 Creat Clearance w eGFR > 60 (>60) 07/14/17 05:00 Random Glucose 78 mg/dL (74-106) 07/14/17 05:00 Calcium 7.6 mg/dL (8.5-10.1) L 07/14/17 05:00 Total Bilirubin 1.2 mg/dL (0.2-1.0) H D 07/14/17 05:00 AST 12 U/L (15-37) L D 07/14/17 05:00 ALT 12 U/L (12-78) D 07/14/17 05:00 Alkaline Phosphatase 67 U/L (45-117) D 07/14/17 05:00 Total Protein 5.6 g/dl (6.4-8.2) L 07/14/17 05:00 Albumin 2.2 g/dl (3.4-5.0) L D 07/14/17 05:00 CARDIAC ENZYMES Creatine Kinase 51 IU/L (39-308) 07/11/17 21:20 Troponin I < 0.02 ng/ml (0.00-0.05) 07/11/17 21:20 Microbiology 07/12/17 13:30 Urine - Urine Schwartz Urine Culture - Final NO GROWTH OBTAINED 07/13/17 09:25 Blood - Peripheral Venous Blood Culture - Preliminary NO GROWTH OBTAINED AFTER 24 HOURS, INCUBATION TO CONTINUE FOR 4 DAYS. 07/13/17 09:25 Blood - Peripheral Venous Blood Culture - Preliminary NO GROWTH OBTAINED AFTER 24 HOURS, INCUBATION TO CONTINUE FOR 4 DAYS. 07/11/17 20:30 Blood - Peripheral Venous Blood Culture - Preliminary Staphylococcus Coagulase Neg 07/11/17 20:30 Blood - Peripheral Venous Blood Culture - Preliminary Staphylococcus Coagulase Neg 07/11/17 20:48 Urine - Urine Clean Catch Urine Culture - Final Contaminated: Please Repeat Assessment: This is a 21 year old male with PMHx of spastic cerebral palsy, cortical blindness, epilepsy, osteopenia, profound intellectual disabilities, club feet, meningiomyelocele at , spinal defect (occurred at age 4), [employer] shunt who presented to the ED with acute respiratory insufficiency and found to have pneumonia and was admitted for further evaluation and management of his emergent condition. Plan: 1) ID: Severe Sepsis 2/2 pneumonia, staph coag negative bacteremia - Repeat blood cultures - Tmax 100 - Continue Zosyn - Continue Vancomycin - F/u ECHO to r/o vegetation - Appreciate ID consult 2) GI: SBO - Continue NGT - Continue rectal tube - Serial abdominal exams - NPO - Appreciate surgery consult 3) Neuro: Seizure disorder - On Phenobarbital liquid at home - Will restart IV while npo 4) F/E/N: - Hypokalemia: replete - Monitor electrolytes - IVF with KCl 5) Prophylaxis: - Heparin 5,000u sq tid - Functional quadraplegia 6) Dispo: - Requires continued inpatient care CODE STATUS: FULL CODE Visit type - Emergency Visit Emergency Visit: Yes ED Registration Date: 07/11/17 Care time: The patient presented to the Emergency Department on the above date and was hospitalized for further evaluation of their emergent condition. - New Patient This patient is new to me today: Yes Date on this admission: 07/16/17 - Critical Care Critical Care patient: Yes Total Critical Care Time (in minutes): 45 Critical Care Statement: The care of this patient involved high complexity decision making to prevent further life threatening deterioration of the patient 's condition and/or to evaluate & treat vital organ system(s) failure or risk of failure.
[2017-07-14 17:36] LABS: ANION GAP 13 (8-16); CO2 24 mmol/L (21-32); GLUCOSE,RANDOM 79 mg/dL (74-106); MAGNESIUM 2.1 mg/dL (1.8-2.4)
[2017-07-14 17:37] LABS: CREATININE < 0.2 mg/dL (0.7-1.3)
--- NOTE | 2017-07-14 19:00 | EKG ---
Test Reason : Blood Pressure : / mmHG Vent. Rate : 099 BPM Atrial Rate : 099 BPM P-R Int : 134 ms QRS Dur : 096 ms QT Int : 288 ms P-R-T Axes : 050 032 022 degrees QTc Int : 369 ms NORMAL SINUS RHYTHM POSSIBLE INFERIOR INFARCT , AGE UNDETERMINED ABNORMAL ECG WHEN COMPARED WITH ECG OF 11-JUL-2017 19:10, VENT. RATE HAS DECREASED Confirmed by DEVYN BLANCO MD ([id number]) on 07/14/2017 7:00:20 PM Referred By: DENVER CAMARENA Confirmed By:DEVYN BLANCO MD
[2017-07-14] MEDS: morphine CARPU-JECT 2 MG/1 ML DISP.SYRIN IVPUSH PRN (20:00)
[2017-07-14] MEDS ORDERED: HEPARIN INFUSION - 500 ML IVPB ONE (20:33)
[2017-07-14] MEDS: CHLORHEXIDINE GLUCONATE 4% CLEANSER FOR DECOLONIZATION TP SCH (21:30)
[2017-07-14] MEDS ORDERED: ACETAMINOPHEN 1000 MG/100 ML VIAL (NON FORMULARY) IVPB PRN (21:43)
[2017-07-14] MEDS ORDERED: PHENobarbital SODIUM 130 MG/1 ML VIAL IVPB SCH (22:00)
[2017-07-15] MEDS: PIPERACILLIN/TAZOB 4.5 GM 100 ML IVPB SCH ×2 (02:20→09:58)
[2017-07-15] MEDS: METOCLOPRAMIDE HCL INJECTION 10 MG/2 ML VIAL IVPB SCH ×4 (03:21→21:46)
[2017-07-15] MEDS: SODIUM CHLORIDE 1,000 ML IV SCH (03:21)
[2017-07-15] MEDS: INSULIN SLIDING SCALE (NOVOLOG) 1 VIAL SQ SCH ×4 (06:19→21:47)
[2017-07-15] MEDS: HEPARIN NA (PORCINE) 5,000 UNITS/ML 1ML VIAL SQ SCH ×3 (06:19→21:47)
[2017-07-15 06:46] LABS: BASOPHIL 0.5 % (0-2.0); EOSINOPHIL 1.8 % (0-4.5); MCH 29.9 pg (25.7-33.7); MCHC 33.6 g/dl (32.0-35.9); MEAN PLT VOLUME 7.6 fl (7.5-11.1); PLATELET COUNT 201 K/MM3 (134-434); RDW 14.4 % (11.9-15.9); WHITE BLOOD COUNT 4.4 K/mm3 (4.0-10.0)
[2017-07-15] MEDS ORDERED: PHENobarbital SODIUM 130 MG/1 ML VIAL IV SCH (07:00)
[2017-07-15 07:24] LABS: ALBUMIN 1.8 g/dl (3.4-5.0); ANION GAP 7 (8-16); CALCIUM 7.9 mg/dL (8.5-10.1); CO2 29 mmol/L (21-32); GLUCOSE,RANDOM 104 mg/dL (74-106)
[2017-07-15 07:34] LABS: ALK PHOS 65 U/L (45-117); BILIRUBIN,TOTAL 0.9 mg/dL (0.2-1.0); CREATININE 0.3 mg/dL (0.7-1.3); SGPT/ALT 14 U/L (12-78); TOT PROT 5.6 g/dl (6.4-8.2)
[2017-07-15 07:39] LABS: SGOT/AST 42 U/L (15-37)
--- NOTE | 2017-07-15 08:48 | PN ---
Physical Exam: SUBJECTIVE: Patient seen and examined OBJECTIVE: Vital Signs Period Temp Pulse Resp BP Sys/Lyons Pulse Ox Last 24 Hr 99.2 F-101.3 F 83-128 13-32 105-170/48-118 99-100 General: NAD, non-verbal, mildly diaphoretic HEENT: macrocephalic, pupils are sluggish, oropharynx clear without exudates, moist mucous membranes. NECK: Trachea midline, full range of motion, supple. LUNGS: diminished left lung, no wheezes, no crackles, no accessory muscle use. HEART: Regular rate and rhythm, S1, S2 without murmur, rub or gallop. ABDOMEN: Soft, nontender, nondistended, normoactive bowel sounds, no guarding, no rebound, no hepatosplenomegaly, no masses. EXTREMITIES: 2+ pulses, warm, well-perfused, no edema. contracted arms, club feet NEUROLOGICAL: non verbal, weakness in all ext, gait not observed Laboratory Results - last 24 hr 07/14/17 07/14/17 07/14/17 05:32 12:50 15:10 WBC RBC Hgb Hct MCV MCH MCHC RDW Plt Count MPV Neutrophils % Lymphocytes % Monocytes % Eosinophils % Basophils % Sodium 149 H Potassium 2.9 L* Chloride 112 H Carbon Dioxide 24 Anion Gap 13 BUN 6 L D Creatinine < 0.2 L Creat Clearance w eGFR POC Glucometer 94.49189 99.58356 Random Glucose 79 Calcium 8.0 L Magnesium 2.1 Total Bilirubin AST ALT Alkaline Phosphatase Total Protein Albumin 07/14/17 07/14/17 07/15/17 17:19 21:52 05:30 WBC 4.4 D RBC 3.82 L Hgb 11.4 L D Hct 34.0 L MCV 89.0 MCH 29.9 MCHC 33.6 RDW 14.4 Plt Count 201 MPV 7.6 Neutrophils % 85.0 H Lymphocytes % 10.2 D Monocytes % 2.5 L Eosinophils % 1.8 D Basophils % 0.5 D Sodium Potassium Chloride Carbon Dioxide Anion Gap BUN Creatinine Creat Clearance w eGFR POC Glucometer 105.82331 142.01452 Random Glucose Calcium Magnesium Total Bilirubin AST ALT Alkaline Phosphatase Total Protein Albumin 07/15/17 07/15/17 05:30 06:40 WBC RBC Hgb Hct MCV MCH MCHC RDW Plt Count MPV Neutrophils % Lymphocytes % Monocytes % Eosinophils % Basophils % Sodium 146 H Potassium 5.1 D Chloride 110 H Carbon Dioxide 29 D Anion Gap 7 L BUN 7 Creatinine 0.3 L D Creat Clearance w eGFR > 60 POC Glucometer 120.64457 Random Glucose 104 D Calcium 7.9 L Magnesium Total Bilirubin 0.9 D AST 42 H D ALT 14 Alkaline Phosphatase 65 Total Protein 5.6 L Albumin 1.8 L Active Medications Generic Name Dose Route Start Last Admin Trade Name Freq PRN Reason Stop Dose Admin Acetaminophen 1,000 mg 07/14/17 21:43 07/14/17 20:15 Ofirmev Injection - IVPB 07/15/17 15:44 1,000 mg Q6H PRN Administration FEVER OR PAIN Chlorhexidine Gluconate 1 applic 07/12/17 22:00 07/14/17 21:30 Hibiclens For Decolonization - TP 1 applic HS ELISHA Administration Heparin Sodium (Porcine) 5,000 unit 07/12/17 06:00 07/15/17 06:19 Heparin - SQ 5,000 unit TID ELISHA Administration Sodium Chloride 1,000 mls @ 125 mls/hr 07/12/17 01:00 07/15/17 03:21 Normal Saline - IV Not Given ASDIR ELISHA Piperacillin Sod/Tazobactam Sod 100 mls @ 200 mls/hr 07/12/17 10:00 07/15/17 02 :20 Zosyn 4.5gm Ivpb (Pre-Docked) IVPB 200 mls/hr Q8H-IV ELISHA Administration Protocol Vancomycin HCl 250 mls @ 166.667 mls/hr 07/13/17 10:30 07/14/17 21:38 Vancomycin (Pre-Docked) IVPB 166.667 mls/hr Q12H ELISHA Administration Dextrose/Sodium Chloride 1,000 mls @ 75 mls/hr 07/14/17 14:45 07/14/17 15:01 D5-1/2ns+40 Meq Kcl - IV 75 mls/hr ASDIR ELISHA Administration Pantoprazole Sodium 100 mls @ 200 mls/hr 07/15/17 10:00 Protonix 40mg Ivpb (Pre-Docked) IVPB DAILY ELISHA Insulin Aspart 1 vial 07/12/17 07:00 07/15/17 06:19 Novolog Vial Sliding Scale - SQ Not Given ACHS ELISHA Protocol Metoclopramide HCl 10 mg 07/12/17 09:30 07/15/17 03:21 Reglan Injection - IVPB 10 mg Q6H ELISHA Administration Morphine Sulfate 1 mg 07/12/17 15:19 07/14/17 20:00 Morphine Injection - IVPUSH 1 mg Q3H PRN Administration PAIN Mupirocin 1 applic 07/12/17 10:00 07/14/17 21:29 Bactroban Ointment (For Decolonization) - NS 07/17/17 09:59 1 applic BID ELISHA Administration Phenobarbital 150 mg 07/14/17 22:00 07/14/17 21:39 Phenobarbital Injection - IVPB 150 mg HS ELISHA Administration Phenobarbital 97 mg 07/15/17 07:00 07/15/17 06:19 Phenobarbital Injection - IV 97 mg AM ELISHA Administration ASSESSMENT/PLAN: 21M with PMHx of spastic cerebral palsy, cortical blindness, epilepsy, osteopenia, profound intellectual disabilities, club feet, meningiomyelocele at , 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 Plan: F/E/N: - Hypokalemia: repleted to 5.1 - Hypernatremia down from 149 to 146 - IVF changed to D5 1/2NS Patient to be transfered to floor today. ID: Severe Sepsis 2/2 pneumonia, staph coag negative bacteremia - Repeat blood cultures - Tmax 101.3 - Continue Zosyn - Continue Vancomycin GI: SBO - Small Bm today. - Continue NGT - Continue rectal tube - Serial abdominal exams - NPO, aspiration precaustion Neuro: Seizure disorder - On Phenobarbital liquid at home - Will restart IV while npo Prophylaxis: - Heparin 5,000u sq tid - Functional quadraplegia CODE STATUS: FULL CODE Visit type - Emergency Visit Emergency Visit: No - New Patient This patient is new to me today: No - Critical Care Critical Care patient: Yes Total Critical Care Time (in minutes): 30 Critical Care Statement: The care of this patient involved high complexity decision making to prevent further life threatening deterioration of the patient 's condition and/or to evaluate & treat vital organ system(s) failure or risk of failure.
[2017-07-15] MEDS: VANCOMYCIN 1 GRAM (PRE-DOCKED) 250 ML IVPB SCH (09:58)
[2017-07-15] MEDS ORDERED: PANTOPRAZOLE SODIUM 100 ML IVPB SCH (10:00)
--- NOTE | 2017-07-15 11:07 | PN ---
Progress Note (short form) - Note Progress Note: Subjective: The patient was seen and examined at the bedside, he is non-verbal Current Medications Generic Name Dose Route Start Last Admin Trade Name Freq PRN Reason Stop Dose Admin Acetaminophen 1,000 mg 07/14/17 21:43 07/14/17 20:15 Ofirmev Injection - IVPB 07/15/17 15:44 1,000 mg Q6H PRN Administration FEVER OR PAIN Chlorhexidine Gluconate 1 applic 07/12/17 22:00 07/14/17 21:30 Hibiclens For Decolonization - TP 1 applic HS ELISHA Administration Heparin Sodium (Porcine) 5,000 unit 07/12/17 06:00 07/15/17 06:19 Heparin - SQ 5,000 unit TID ELISHA Administration Sodium Chloride 1,000 mls @ 125 mls/hr 07/12/17 01:00 07/15/17 03:21 Normal Saline - IV Not Given ASDIR ELISHA Vancomycin HCl 250 mls @ 166.667 mls/hr 07/13/17 10:30 07/15/17 09:58 Vancomycin (Pre-Docked) IVPB 166.667 mls/hr Q12H ELISHA Administration Dextrose/Sodium Chloride 1,000 mls @ 75 mls/hr 07/14/17 14:45 07/14/17 15:01 D5-1/2ns+40 Meq Kcl - IV 75 mls/hr ASDIR ELISHA Administration Pantoprazole Sodium 100 mls @ 200 mls/hr 07/15/17 10:00 07/15/17 10:00 Protonix 40mg Ivpb (Pre-Docked) IVPB 200 mls/hr DAILY ELISHA Administration Insulin Aspart 1 vial 07/12/17 07:00 07/15/17 06:19 Novolog Vial Sliding Scale - SQ Not Given ACHS ELISHA Protocol Metoclopramide HCl 10 mg 07/12/17 09:30 07/15/17 08:58 Reglan Injection - IVPB 10 mg Q6H ELISHA Administration Morphine Sulfate 1 mg 07/12/17 15:19 07/14/17 20:00 Morphine Injection - IVPUSH 1 mg Q3H PRN Administration PAIN Mupirocin 1 applic 07/12/17 10:00 07/14/17 21:29 Bactroban Ointment (For Decolonization) - NS 07/17/17 09:59 1 applic BID ELISHA Administration Phenobarbital 150 mg 07/14/17 22:00 07/14/17 21:39 Phenobarbital Injection - IVPB 150 mg HS ELISHA Administration Phenobarbital 97 mg 07/15/17 07:00 07/15/17 06:19 Phenobarbital Injection - IV 97 mg AM ELISHA Administration Objective: Vital Signs Period Temp Pulse Resp BP Sys/Lyons Pulse Ox Last 24 Hr 99 F-101.3 F 83-128 13-32 105-170/48-118 100-100 Physical Exam: General: NAD, non-verbal HEENT: macrocephalic, pupils are sluggish, oropharynx clear without exudates, moist mucous membranes. NECK: Trachea midline, full range of motion, supple. LUNGS: Diminished breath sounds bilaterally, no wheezes, no crackles, no accessory muscle use. HEART: Regular rate and rhythm, S1, S2 without murmur, rub or gallop. ABDOMEN: Soft, distended. Hypoactive bowel sounds EXTREMITIES: 2+ pulses, warm, well-perfused, no edema. contracted arms, club feet NEUROLOGICAL: non verbal, weakness in all ext, gait not observed SKIN: Warm, dry, normal turgor, no rashes or lesions noted CBCD WBC 4.4 K/mm3 (4.0-10.0) D 07/15/17 05:30 RBC 3.82 M/mm3 (4.00-5.60) L 07/15/17 05:30 Hgb 11.4 GM/dL (11.7-16.9) L D 07/15/17 05:30 Hct 34.0 % (35.4-49) L 07/15/17 05:30 MCV 89.0 fl (80-96) 07/15/17 05:30 MCHC 33.6 g/dl (32.0-35.9) 07/15/17 05:30 RDW 14.4 % (11.9-15.9) 07/15/17 05:30 Plt Count 201 K/MM3 (134-434) 07/15/17 05:30 MPV 7.6 fl (7.5-11.1) 07/15/17 05:30 CMP Sodium 146 mmol/L (136-145) H 07/15/17 05:30 Potassium 5.1 mmol/L (3.5-5.1) D 07/15/17 05:30 Chloride 110 mmol/L (98-107) H 07/15/17 05:30 Carbon Dioxide 29 mmol/L (21-32) D 07/15/17 05:30 Anion Gap 7 (8-16) L 07/15/17 05:30 BUN 7 mg/dL (7-18) 07/15/17 05:30 Creatinine 0.3 mg/dL (0.7-1.3) L D 07/15/17 05:30 Creat Clearance w eGFR > 60 (>60) 07/15/17 05:30 Random Glucose 104 mg/dL (74-106) D 07/15/17 05:30 Calcium 7.9 mg/dL (8.5-10.1) L 07/15/17 05:30 Total Bilirubin 0.9 mg/dL (0.2-1.0) D 07/15/17 05:30 AST 42 U/L (15-37) H D 07/15/17 05:30 ALT 14 U/L (12-78) 07/15/17 05:30 Alkaline Phosphatase 65 U/L (45-117) 07/15/17 05:30 Total Protein 5.6 g/dl (6.4-8.2) L 07/15/17 05:30 Albumin 1.8 g/dl (3.4-5.0) L 07/15/17 05:30 CARDIAC ENZYMES Creatine Kinase 51 IU/L (39-308) 07/11/17 21:20 Troponin I < 0.02 ng/ml (0.00-0.05) 07/11/17 21:20 Microbiology 07/14/17 10:00 Urine - Urine Schwartz Urine Culture - Final NO GROWTH OBTAINED 07/13/17 09:25 Blood - Peripheral Venous Blood Culture - Preliminary NO GROWTH OBTAINED AFTER 48 HOURS, INCUBATION TO CONTINUE FOR 3 DAYS. 07/13/17 09:25 Blood - Peripheral Venous Blood Culture - Preliminary NO GROWTH OBTAINED AFTER 48 HOURS, INCUBATION TO CONTINUE FOR 3 DAYS. 07/12/17 13:30 Urine - Urine Schwartz Urine Culture - Final NO GROWTH OBTAINED 07/11/17 20:30 Blood - Peripheral Venous Blood Culture - Preliminary Staphylococcus Coagulase Neg 07/11/17 20:30 Blood - Peripheral Venous Blood Culture - Preliminary Staphylococcus Coagulase Neg 07/11/17 20:48 Urine - Urine Clean Catch Urine Culture - Final Contaminated: Please Repeat Assessment: This is a 21 year old male with PMHx of spastic cerebral palsy, cortical blindness, epilepsy, osteopenia, profound intellectual disabilities, club feet, meningiomyelocele at , spinal defect (occurred at age 4), [employer] shunt who presented to the ED with acute respiratory insufficiency and found to have pneumonia and was admitted for further evaluation and management of his emergent condition. Plan: 1) ID: Severe Sepsis 2/2 pneumonia, staph coag negative bacteremia - Repeat blood cultures - Tmax 101.3 - Continue Zosyn - Continue Vancomycin - F/u ECHO to r/o vegetation - Appreciate ID consult 2) GI: SBO - Continue NGT - Rectal tube removed this AM and the patient had a solid bowel movement - Serial abdominal exams - NPO - Appreciate surgery consult 3) Neuro: Seizure disorder - Continue Phenobarbital 4) F/E/N: - Hypokalemia: resolved - Monitor electrolytes 5) Prophylaxis: - Heparin 5,000u sq tid - Functional quadraplegia 6) Dispo: - Requires continued inpatient care CODE STATUS: FULL CODE Visit type - Emergency Visit Emergency Visit: Yes ED Registration Date: 07/11/17 Care time: The patient presented to the Emergency Department on the above date and was hospitalized for further evaluation of their emergent condition. - New Patient This patient is new to me today: No - Critical Care Critical Care patient: Yes Total Critical Care Time (in minutes): 45 Critical Care Statement: The care of this patient involved high complexity decision making to prevent further life threatening deterioration of the patient 's condition and/or to evaluate & treat vital organ system(s) failure or risk of failure.
--- NOTE | 2017-07-15 11:09 | PN ---
Progress Note (short form) - Note Progress Note: nonverbal NAD Vital Signs Period Temp Pulse Resp BP Sys/Lyons Pulse Ox Last 24 Hr 99 F-101.3 F 83-128 13-32 105-170/48-118 100-100 macrocephaly cor-rrr lungs decreased bs at bases abd soft,nt ext trace edema CBC, BMP 07/15/17 05:30 07/15/17 05:30 Microbiology 07/14/17 10:00 Urine - Urine Schwartz Urine Culture - Final NO GROWTH OBTAINED 07/13/17 09:25 Blood - Peripheral Venous Blood Culture - Preliminary NO GROWTH OBTAINED AFTER 48 HOURS, INCUBATION TO CONTINUE FOR 3 DAYS. 07/13/17 09:25 Blood - Peripheral Venous Blood Culture - Preliminary NO GROWTH OBTAINED AFTER 48 HOURS, INCUBATION TO CONTINUE FOR 3 DAYS. 07/12/17 13:30 Urine - Urine Schwartz Urine Culture - Final NO GROWTH OBTAINED 07/11/17 20:30 Blood - Peripheral Venous Blood Culture - Preliminary Staphylococcus Coagulase Neg 07/11/17 20:30 Blood - Peripheral Venous Blood Culture - Preliminary Staphylococcus Coagulase Neg 07/11/17 20:48 Urine - Urine Clean Catch Urine Culture - Final Contaminated: Please Repeat a/p intermittent fevers pneumonia coag negative staph bacteremia small bowel obstruction/ileus- surgery following continue vancomycin/zosyn f/u cultures vancomyci trough
[2017-07-15] MEDS ORDERED: ACETAMINOPHEN 1000 MG/100 ML VIAL (NON FORMULARY) IVPB PRN (11:51)
[2017-07-15] MEDS ORDERED: morphine CARPU-JECT 2 MG/1 ML DISP.SYRIN IVPUSH PRN (11:51)
[2017-07-15] MEDS ORDERED: SODIUM CHLORIDE 1,000 ML IV SCH (11:51)
--- NOTE | 2017-07-15 12:41 | PN ---
Teaching Attending Note Name of Resident: Tomas Reddy ATTENDING PHYSICIAN STATEMENT I saw and evaluated the patient. I reviewed the resident's note and discussed the case with the resident. I agree with the resident's findings and plan as documented. SUBJECTIVE: Pt seen and examined in the ICU. Febrile overnight. Pt nonverbal. OBJECTIVE: Last Vital Signs Temp Pulse Resp BP Pulse Ox 99 F 88 18 151/82 100 07/15/17 10:00 07/15/17 12:00 07/15/17 12:00 07/15/17 12:00 07/14/17 20:11 Intake & Output 07/12/17 07/13/17 07/14/17 07/15/17 23:59 23:59 23:59 23:59 Intake Total 4270 3500 3500 1100 Output Total 5600 2650 2200 1000 Balance -8869 305 9533 100 Weight 188 lb 9.6 oz 188 lb 198 lb 1 oz Gen: diaphoretic Heart: RRR Lung: decreased breath sounds at the bases Abd: softly distended, nontender Ext: no edema, contracted CBC, BMP 07/15/17 05:30 07/15/17 05:30 Active Medications Acetaminophen (Ofirmev Injection -) 1,000 mg IVPB Q6H PRN PRN Reason: FEVER OR PAIN Stop: 07/15/17 15:44 Chlorhexidine Gluconate (Hibiclens For Decolonization -) 1 applic TP HS ELISHA Heparin Sodium (Porcine) (Heparin -) 5,000 unit SQ TID ELISHA Dextrose/Sodium Chloride (D5-1/2ns -) 1,000 mls @ 75 mls/hr IV ASDIR ELISHA Pantoprazole Sodium (Protonix 40mg Ivpb (Pre-Docked)) 100 mls @ 200 mls/hr IVPB DAILY ELISHA Insulin Aspart (Novolog Vial Sliding Scale -) 1 vial SQ ACHS ELISHA PRN Reason: Protocol Metoclopramide HCl (Reglan Injection -) 10 mg IVPB Q6H ELISHA Morphine Sulfate (Morphine Injection -) 1 mg IVPUSH Q3H PRN PRN Reason: PAIN Mupirocin (Bactroban Ointment (For Decolonization) -) 1 applic NS BID ELISHA Stop: 07/17/17 09:59 Phenobarbital (Phenobarbital Injection -) 150 mg IVPB HS ELISHA Phenobarbital (Phenobarbital Injection -) 97 mg IV AM ELISHA Piperacillin Sod/Tazobactam Sod (Zosyn 4.5gm Ivpb (Pre-Docked)) 4.5 gm IVPB Q8H -IV ELISHA ASSESSMENT AND PLAN: Small Bowel Obstruction Staph Bacteremia UTI Sepsis Lactic Acidosis resolved Cerebral Palsy Hydrocephalus s/p 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
--- NOTE | 2017-07-15 15:45 | PN ---
Progress Note (short form) - Note Progress Note: No acute events +BM Rectal tube has been removed NPO Vital Signs Period Temp Pulse Resp BP Sys/Lyons Pulse Ox Last 24 Hr 99 F-101.3 F 86-128 13-32 105-170/48-118 100-100 Abd soft, ND CBC, BMP 07/15/17 05:30 07/15/17 05:30 Serial abdominal exams AXR in am Problem List - Problems (1) Distended abdomen Code(s): R14.0 - ABDOMINAL DISTENSION (GASEOUS) (2) SBO (small bowel obstruction) Code(s): K56.69 - OTHER INTESTINAL OBSTRUCTION
[2017-07-15] MEDS: DEXTROSE 5%-0.45% SALINE 1,000 ML IV SCH (15:56)
[2017-07-15] MEDS ORDERED: ACETAMINOPHEN 1000 MG/100 ML VIAL (NON FORMULARY) IVPB ONE (17:26)
[2017-07-15] MEDS ORDERED: PIPERACILLIN/TAZOB 4.5 GM/100 ML PRE-DOCKED IVPB SCH (18:00)
[2017-07-15] MEDS: PHENobarbital SODIUM 65 MG/1 ML VIAL IVPB SCH (21:46)
[2017-07-15] MEDS ORDERED: MUPIROCIN 2% TOPICAL OINTMENT FOR DECOLONIZATION NS SCH (22:00)
[2017-07-15] MEDS ORDERED: CHLORHEXIDINE GLUCONATE 4% CLEANSER FOR DECOLONIZATION TP SCH (22:00)
[2017-07-16] MEDS ORDERED: PIPERACILLIN/TAZOBACTAM 4.5 GM VIAL IVPB ONE ×3 (01:44→17:07)
[2017-07-16] MEDS ORDERED: DEXTROSE 5%-WATER 100 ML IVPB ONE ×3 (01:45→17:07)
[2017-07-16] MEDS: PIPERACILLIN/TAZOB 4.5 GM 4.5 GM in DEXTROSE 5%-WATER 100 ML IVPB SCH ×3 (03:09→17:15)
[2017-07-16] MEDS: METOCLOPRAMIDE HCL INJECTION 10 MG/2 ML VIAL IVPB SCH ×4 (03:58→20:33)
[2017-07-16 07:20] LABS: BASOPHIL 0.2 % (0-2.0); EOSINOPHIL 2.3 % (0-4.5); MCH 29.8 pg (25.7-33.7); MCHC 33.4 g/dl (32.0-35.9); MEAN CELL VOLUME 89.2 fl (80-96); MEAN PLT VOLUME 7.6 fl (7.5-11.1); NEUTROPHILS 75.4 % (42.8-82.8); PLATELET COUNT 206 K/MM3 (134-434); WHITE BLOOD COUNT 5.6 K/mm3 (4.0-10.0)
[2017-07-16 07:46] LABS: ALBUMIN 2.1 g/dl (3.4-5.0); ANION GAP 9 (8-16); BILIRUBIN,TOTAL 0.8 mg/dL (0.2-1.0); CALCIUM 7.7 mg/dL (8.5-10.1); CO2 33 mmol/L (21-32); CREATININE 0.2 mg/dL (0.7-1.3); GLUCOSE,RANDOM 74 mg/dL (74-106); SGOT/AST 9 U/L (15-37); SGPT/ALT 11 U/L (12-78); TOT PROT 5.8 g/dl (6.4-8.2)
[2017-07-16 07:47] LABS: ALK PHOS 62 U/L (45-117)
--- NOTE | 2017-07-16 07:51 | PN ---
Progress Note, Physician Chief Complaint: ID Zosyn & vancomcyin Remains stable Isolated temp spike 101.4 - Current Medication List Current Medications: Active Medications Heparin Sodium (Porcine) (Heparin -) 5,000 unit SQ TID [facility] Last Admin: 07/15/17 21:47 Dose: 5,000 unit Dextrose/Sodium Chloride (D5-1/2ns -) 1,000 mls @ 75 mls/hr IV ASDIR [facility] Last Admin: 07/15/17 15:56 Dose: 75 mls/hr Piperacillin Sod/Tazobactam (Sod 4.5 gm/ Dextrose) 100 mls @ 200 mls/hr IVPB Q8H-IV ELISHA Last Admin: 07/16/17 03:09 Dose: 200 mls/hr Pantoprazole Sodium 40 mg/ (Sodium Chloride) 100 mls @ 200 mls/hr IVPB DAILY [facility] Insulin Aspart (Novolog Vial Sliding Scale -) 1 vial SQ ACHS ELISHA PRN Reason: Protocol Last Admin: 07/15/17 21:47 Dose: Not Given Metoclopramide HCl (Reglan Injection -) 10 mg IVPB Q6H [facility] Last Admin: 07/16/17 03:58 Dose: 10 mg Morphine Sulfate (Morphine Injection -) 1 mg IVPUSH Q3H PRN PRN Reason: PAIN Phenobarbital (Phenobarbital Injection -) 150 mg IVPB HS [facility] Last Admin: 07/15/17 21:46 Dose: 150 mg Phenobarbital (Phenobarbital Injection -) 97 mg IVPB AM [facility] - Objective Vital Signs: Vital Signs Temperature 99.2 F 07/16/17 02:00 Pulse Rate 101 H 07/16/17 02:00 Respiratory Rate 18 07/16/17 02:00 Blood Pressure 118/64 07/16/17 02:00 O2 Sat by Pulse Oximetry (%) 100 07/14/17 20:11 HENT: Yes: Other (hydrocephalus). No: Normocephalic Cardiovascular: Yes: Regular Rate and Rhythm, Tachycardia, S1, S2. No: Murmur Respiratory: Yes: WNL, Regular, CTA Bilaterally Gastrointestinal: Yes: Soft. No: Tenderness, Epigastrium, Tenderness, Rebound Labs: CBC, BMP 07/16/17 06:30 INR, PTT INR 1.51 (0.82-1.09) H 07/14/17 05:00 Problem List - Problems (1) Sepsis Code(s): A41.9 - SEPSIS, UNSPECIFIED ORGANISM (2) UTI (urinary tract infection) Code(s): N39.0 - URINARY TRACT INFECTION, SITE NOT SPECIFIED (3) Respiratory failure Code(s): J96.90 - RESPIRATORY FAILURE, UNSP, UNSP W HYPOXIA OR HYPERCAPNIA (4) Gram-positive bacteremia Code(s): R78.81 - BACTEREMIA Assessment/Plan Microbiology 07/12/17 13:30 Urine - Urine Schwartz Urine Culture - Final NO GROWTH OBTAINED 07/11/17 20:48 Urine - Urine Clean Catch Urine Culture - Final Contaminated: Please Repeat 07/13/17 09:25 Blood - Peripheral Venous Blood Culture - Preliminary NO GROWTH OBTAINED AFTER 48 HOURS, INCUBATION TO CONTINUE FOR 3 DAYS. 07/13/17 09:25 Blood - Peripheral Venous Blood Culture - Preliminary NO GROWTH OBTAINED AFTER 48 HOURS, INCUBATION TO CONTINUE FOR 3 DAYS. 07/11/17 20:30 Blood - Peripheral Venous Blood Culture - Preliminary Staphylococcus Coagulase Neg 07/11/17 20:30 Blood - Peripheral Venous Blood Culture - Preliminary Staphylococcus Coagulase Neg Assessment Profound developmental delay Pneumonia ? aspiration Positive blood cultures coag neg staph though unsure clinical significance but will treat Technically limited ECHO 2D Fever Plan Continue Vancomycin and Zosyn Check vanco jie Madera MD
[2017-07-16] MEDS: INSULIN SLIDING SCALE (NOVOLOG) 1 VIAL SQ SCH ×4 (07:57→22:36)
[2017-07-16] MEDS: HEPARIN NA (PORCINE) 5,000 UNITS/ML 1ML VIAL SQ SCH ×3 (07:57→21:00)
[2017-07-16] MEDS: PHENobarbital SODIUM 65 MG/1 ML VIAL IVPB SCH ×2 (08:35→21:00)
[2017-07-16] MEDS: KCL 10 MEQ IVPB 100 ML IVPB SCH ×5 (09:41→22:36)
[2017-07-16] MEDS ORDERED: SODIUM CHLORIDE 100 ML IVPB ONE (09:50)
[2017-07-16] MEDS ORDERED: PANTOPRAZOLE SODIUM 40 MG VIAL ONE (09:50)
[2017-07-16] MEDS ORDERED: PANTOPRAZOLE SODIUM 100 ML IVPB SCH (10:00)
[2017-07-16] MEDS: PANTOPRAZOLE SODIUM 40 MG in SODIUM CHLORIDE 100 ML IVPB SCH (12:02)
[2017-07-16] MEDS: DEXTROSE 5%-0.45% SALINE 1,000 ML IV SCH (13:00)
[2017-07-16] MEDS: VANCOMYCIN 1,250 MG in DEXTROSE 5%-WATER - 250 ML IVPB SCH ×2 (13:46→22:38)
[2017-07-16] MEDS ORDERED: AMINO ACIDS 4.25%/D5W 1,000 ML IV SCH (16:15)
[2017-07-16] MEDS ORDERED: POTASSIUM CHLORIDE 40 MEQ in AMINO ACIDS 4.25%/D5W 1,000 ML IVPB SCH (16:15)
--- NOTE | 2017-07-16 16:28 | PN ---
Progress Note (short form) - Note Progress Note: Subjective: The patient was seen and examined at the bedside, he is non-verbal Current Medications Generic Name Dose Route Start Last Admin Trade Name Freq PRN Reason Stop Dose Admin Acetaminophen 1,000 mg 07/14/17 21:43 07/14/17 20:15 Ofirmev Injection - IVPB 07/15/17 15:44 1,000 mg Q6H PRN Administration FEVER OR PAIN Chlorhexidine Gluconate 1 applic 07/12/17 22:00 07/14/17 21:30 Hibiclens For Decolonization - TP 1 applic HS ELISHA Administration Heparin Sodium (Porcine) 5,000 unit 07/12/17 06:00 07/15/17 06:19 Heparin - SQ 5,000 unit TID ELISHA Administration Sodium Chloride 1,000 mls @ 125 mls/hr 07/12/17 01:00 07/15/17 03:21 Normal Saline - IV Not Given ASDIR ELISHA Vancomycin HCl 250 mls @ 166.667 mls/hr 07/13/17 10:30 07/15/17 09:58 Vancomycin (Pre-Docked) IVPB 166.667 mls/hr Q12H ELISHA Administration Dextrose/Sodium Chloride 1,000 mls @ 75 mls/hr 07/14/17 14:45 07/14/17 15:01 D5-1/2ns+40 Meq Kcl - IV 75 mls/hr ASDIR ELISHA Administration Pantoprazole Sodium 100 mls @ 200 mls/hr 07/15/17 10:00 07/15/17 10:00 Protonix 40mg Ivpb (Pre-Docked) IVPB 200 mls/hr DAILY ELISHA Administration Insulin Aspart 1 vial 07/12/17 07:00 07/15/17 06:19 Novolog Vial Sliding Scale - SQ Not Given ACHS ELISHA Protocol Metoclopramide HCl 10 mg 07/12/17 09:30 07/15/17 08:58 Reglan Injection - IVPB 10 mg Q6H ELISHA Administration Morphine Sulfate 1 mg 07/12/17 15:19 07/14/17 20:00 Morphine Injection - IVPUSH 1 mg Q3H PRN Administration PAIN Mupirocin 1 applic 07/12/17 10:00 07/14/17 21:29 Bactroban Ointment (For Decolonization) - NS 07/17/17 09:59 1 applic BID ELISHA Administration Phenobarbital 150 mg 07/14/17 22:00 07/14/17 21:39 Phenobarbital Injection - IVPB 150 mg HS ELISHA Administration Phenobarbital 97 mg 07/15/17 07:00 07/15/17 06:19 Phenobarbital Injection - IV 97 mg AM ELISHA Administration Objective: Vital Signs Period Temp Pulse Resp BP Sys/Lyons Pulse Ox Last 24 Hr 99 F-101.3 F 83-128 13-32 105-170/48-118 100-100 Physical Exam: General: NAD, non-verbal HEENT: macrocephalic, pupils are sluggish, oropharynx clear without exudates, moist mucous membranes. NECK: Trachea midline, full range of motion, supple. LUNGS: Diminished breath sounds bilaterally, no wheezes, no crackles, no accessory muscle use. HEART: Regular rate and rhythm, S1, S2 without murmur, rub or gallop. ABDOMEN: Soft, distended. Hypoactive bowel sounds EXTREMITIES: 2+ pulses, warm, well-perfused, no edema. contracted arms, club feet NEUROLOGICAL: non verbal, weakness in all ext, gait not observed SKIN: Warm, dry, normal turgor, no rashes or lesions noted CBCD WBC 5.6 K/mm3 (4.0-10.0) 07/16/17 06:30 RBC 4.11 M/mm3 (4.00-5.60) 07/16/17 06:30 Hgb 12.2 GM/dL (11.7-16.9) 07/16/17 06:30 Hct 36.7 % (35.4-49) 07/16/17 06:30 MCV 89.2 fl (80-96) 07/16/17 06:30 MCHC 33.4 g/dl (32.0-35.9) 07/16/17 06:30 RDW 15.0 % (11.9-15.9) 07/16/17 06:30 Plt Count 206 K/MM3 (134-434) 07/16/17 06:30 MPV 7.6 fl (7.5-11.1) 07/16/17 06:30 CMP Sodium 147 mmol/L (136-145) H 07/16/17 06:30 Potassium 2.5 mmol/L (3.5-5.1) L* D 07/16/17 06:30 Chloride 105 mmol/L (98-107) 07/16/17 06:30 Carbon Dioxide 33 mmol/L (21-32) H 07/16/17 06:30 Anion Gap 9 (8-16) 07/16/17 06:30 BUN 3 mg/dL (7-18) L D 07/16/17 06:30 Creatinine 0.2 mg/dL (0.7-1.3) L D 07/16/17 06:30 Creat Clearance w eGFR > 60 (>60) 07/16/17 06:30 Random Glucose 74 mg/dL (74-106) D 07/16/17 06:30 Calcium 7.7 mg/dL (8.5-10.1) L 07/16/17 06:30 Total Bilirubin 0.8 mg/dL (0.2-1.0) 07/16/17 06:30 AST 9 U/L (15-37) L D 07/16/17 06:30 ALT 11 U/L (12-78) L D 07/16/17 06:30 Alkaline Phosphatase 62 U/L (45-117) 07/16/17 06:30 Total Protein 5.8 g/dl (6.4-8.2) L 07/16/17 06:30 Albumin 2.1 g/dl (3.4-5.0) L 07/16/17 06:30 CARDIAC ENZYMES Creatine Kinase 51 IU/L (39-308) 07/11/17 21:20 Troponin I < 0.02 ng/ml (0.00-0.05) 07/11/17 21:20 Microbiology 07/11/17 20:30 Blood - Peripheral Venous Blood Culture - Final Staphylococcus Auricularis 07/13/17 09:25 Blood - Peripheral Venous Blood Culture - Preliminary NO GROWTH OBTAINED AFTER 72 HOURS, INCUBATION TO CONTINUE FOR 2 DAYS. 07/13/17 09:25 Blood - Peripheral Venous Blood Culture - Preliminary NO GROWTH OBTAINED AFTER 72 HOURS, INCUBATION TO CONTINUE FOR 2 DAYS. 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 Plan: 1) ID: Severe Sepsis 2/2 pneumonia, staph coag negative bacteremia - Tmax 101.4 - Continue Zosyn - Continue Vancomycin - ECHO reviewed, suboptimal view, cannot rule out vegetation - Appreciate ID consult 2) GI: SBO - Continue NGT - Abd x-ray: a true smal bowel obstruction is more difficult to see and may represent a partially resolving small bowel obstruction as there are some distended loops of small bowel noted - Serial abdominal exams - NPO - Appreciate surgery consult 3) Neuro: Seizure disorder - Continue Phenobarbital 4) F/E/N: - Hypokalemia: replete - Start Clinimix with Kcl - Multivitamin - Monitor electrolytes 5) Prophylaxis: - Heparin 5,000u sq tid - Functional quadraplegia 6) Dispo: - Requires continued inpatient care CODE STATUS: FULL CODE Visit type - Emergency Visit Emergency Visit: Yes ED Registration Date: 07/11/17 Care time: The patient presented to the Emergency Department on the above date and was hospitalized for further evaluation of their emergent condition. - New Patient This patient is new to me today: No - Critical Care Critical Care patient: No
[2017-07-16] MEDS ORDERED: ACETAMINOPHEN 1000 MG/100 ML VIAL (NON FORMULARY) IVPB ONE (16:44)
[2017-07-16] MEDS: POTASSIUM CHLORIDE 40 MEQ in AMINO ACIDS 4.25%/D5W 1,000 ML IVPB SCH (17:35)
[2017-07-16 18:37] LABS: ANION GAP 9 (8-16); CALCIUM 7.8 mg/dL (8.5-10.1); CO2 31 mmol/L (21-32); CREATININE 0.3 mg/dL (0.7-1.3); GLUCOSE,RANDOM 103 mg/dL (74-106)
--- NOTE | 2017-07-16 19:13 | PN ---
Progress Note (short form) - Note Progress Note: + Febrile NG tube flushed- in place Vital Signs Period Temp Pulse Resp BP Sys/Lyons Pulse Ox Last 24 Hr 98.3 F-102.1 F 96-112 18-22 99-118/48-64 97 Abd soft, no rebound CBC, BMP 07/16/17 06:30 07/16/17 17:58 AXR- may represent resolving ileus/obstruction NG tube Antibiotics per ID Problem List - Problems (1) Distended abdomen Code(s): R14.0 - ABDOMINAL DISTENSION (GASEOUS) (2) SBO (small bowel obstruction) Code(s): K56.69 - OTHER INTESTINAL OBSTRUCTION
[2017-07-17] MEDS ORDERED: PIPERACILLIN/TAZOBACTAM 4.5 GM VIAL IVPB ONE ×3 (01:50→15:35)
[2017-07-17] MEDS ORDERED: DEXTROSE 5%-WATER 100 ML IVPB ONE ×3 (01:50→15:35)
[2017-07-17] MEDS: PIPERACILLIN/TAZOB 4.5 GM 4.5 GM in DEXTROSE 5%-WATER 100 ML IVPB SCH ×3 (02:14→17:49)
[2017-07-17] MEDS: METOCLOPRAMIDE HCL INJECTION 10 MG/2 ML VIAL IVPB SCH ×4 (03:14→21:47)
[2017-07-17] MEDS: POTASSIUM CHLORIDE 40 MEQ in AMINO ACIDS 4.25%/D5W 1,000 ML IVPB SCH ×3 (03:43→15:41)
[2017-07-17] MEDS: HEPARIN NA (PORCINE) 5,000 UNITS/ML 1ML VIAL SQ SCH ×3 (06:38→21:47)
[2017-07-17] MEDS: INSULIN SLIDING SCALE (NOVOLOG) 1 VIAL SQ SCH (06:42)
[2017-07-17] MEDS: PHENobarbital SODIUM 65 MG/1 ML VIAL IVPB SCH ×2 (06:45→21:48)
[2017-07-17] MEDS ORDERED: INSULIN (NOVOLOG) ASPART 100 UNITS/ML 10ML VIAL ONE (06:54)
[2017-07-17] MEDS ORDERED: PT OWN MED DRAWER 7, Y5N ONE (06:55)
[2017-07-17 07:44] LABS: MCH 29.3 pg (25.7-33.7); MCHC 32.9 g/dl (32.0-35.9); MEAN CELL VOLUME 88.9 fl (80-96); MEAN PLT VOLUME 8.5 fl (7.5-11.1); PLATELET COUNT 200 K/MM3 (134-434); RDW 14.7 % (11.9-15.9); WHITE BLOOD COUNT 9.5 K/mm3 (4.0-10.0)
[2017-07-17 08:09] LABS: ALBUMIN 1.8 g/dl (3.4-5.0); ANION GAP 7 (8-16); CALCIUM 7.5 mg/dL (8.5-10.1); CO2 31 mmol/L (21-32); CREATININE 0.5 mg/dL (0.7-1.3); GLUCOSE,RANDOM 85 mg/dL (74-106); SGPT/ALT 12 U/L (12-78)
[2017-07-17 08:11] LABS: ALK PHOS 64 U/L (45-117); BILIRUBIN,TOTAL 0.7 mg/dL (0.2-1.0); TOT PROT 5.7 g/dl (6.4-8.2)
[2017-07-17 08:17] LABS: SGOT/AST 36 U/L (15-37)
[2017-07-17 08:48] LABS: TOTAL CELLS COUNTED 100
[2017-07-17 08:49] LABS: BASOPHIL (MANUAL) 1 % (0-2.0)
[2017-07-17] MEDS ORDERED: PANTOPRAZOLE SODIUM 40 MG VIAL ONE (09:50)
[2017-07-17] MEDS ORDERED: SODIUM CHLORIDE 100 ML IVPB ONE (09:50)
[2017-07-17] MEDS: PANTOPRAZOLE SODIUM 40 MG in SODIUM CHLORIDE 100 ML IVPB SCH (09:57)
--- NOTE | 2017-07-17 09:59 | PN ---
Physical Exam: SUBJECTIVE: Patient seen and examined at the bedside. He is non verbal at baseline. In no acute distress, still drainage from the NGT. OBJECTIVE: Rectal tube has been removed, NGT to low intermittent suction On Climinax Tmax 102.1F Remains NPO Patient may need a central line, attempted to place a 22 gauge iv on left hand, but unsuccessful Multiple attempts made by nursing staff also unsuccessful Central line placed by . Important phone no. [facility] [phone] Mother: Lorie Chamberscom: [phone] [place] [facility] (Mercedes Kothari) [phone] I spoke with mother today and provided her with an update. She would like to be called daily: Mother: Lorie Chamberscom: [phone] Vital Signs Period Temp Pulse Resp BP Sys/Lyons Pulse Ox Last 24 Hr 97.8 F-102.1 F 80-112 18-22 103-136/45-61 100 GENERAL: Awake, alert, non verbal at baseline HEAD: Macrocephalic with no signs of trauma. EYES: Pupils equal, round and reactive to light, eyes track, sclera anicteric, conjunctiva clear. No lid lag. EARS, NOSE, THROAT: Ears normal, nares patent, oropharynx clear without exudates. Moist mucous membranes. NECK: Normal range of motion, supple without lymphadenopathy, JVD, or masses. LUNGS: Rhonchi present over all lung beckham. Accessory muscle use present HEART: Tachycardia @118. Sinus rhythm, normal S1 and S2 without murmur, rub or gallop. ABDOMEN: Firm, nontender, distended, hypoactive bowel sounds, no guarding, no rebound, no masses. No hepatomegaly or splenomegaly. MUSCULOSKELETAL: Normal range of motion at all joints. No bony deformities or tenderness. No CVA tenderness. UPPER EXTREMITIES: 2+ pulses, warm, well-perfused. No cyanosis. No clubbing. No peripheral edema. LOWER EXTREMITIES: 2+ pulses, cool to palpation. No calf tenderness. No peripheral edema. BLE shortened with minimal muscle mass. B/L club feet. NEUROLOGICAL: Eyes track. PERRLA.non verbal SKIN: excoriated skin on his back, buttocks and sacral area. Laboratory Results - last 24 hr 07/16/17 07/16/17 07/17/17 09:30 17:58 01:29 WBC RBC Hgb Hct MCV MCH MCHC RDW Plt Count MPV Total Counted Neutrophils % Neutrophils % (Manual) Band Neuts % (Manual) Lymphocytes % Lymphocytes % (Manual) Monocytes % (Manual) Eosinophils % (Manual) Basophils % (Manual) Sodium 143 Cancelled Potassium 2.9 L* Cancelled Chloride 103 Cancelled Carbon Dioxide 31 Cancelled Anion Gap 9 Cancelled BUN 2 L* D Cancelled Creatinine 0.3 L D Cancelled Creat Clearance w eGFR POC Glucometer Random Glucose 103 D Cancelled Calcium 7.8 L Cancelled Total Bilirubin AST ALT Alkaline Phosphatase Total Protein Albumin Vancomycin Pre-Dose 1.677 L* 07/17/17 07/17/17 07/17/17 06:40 06:45 06:45 WBC 9.5 D RBC 3.85 L Hgb 11.3 L Hct 34.2 L MCV 88.9 MCH 29.3 MCHC 32.9 RDW 14.7 Plt Count 200 MPV 8.5 D Total Counted 100 Neutrophils % Y Neutrophils % (Manual) 75 D Band Neuts % (Manual) 4 D Lymphocytes % Y Lymphocytes % (Manual) 11 D Monocytes % (Manual) 7 D Eosinophils % (Manual) 2 Basophils % (Manual) 1 Sodium 144 Potassium 3.8 D Chloride 106 Carbon Dioxide 31 Anion Gap 7 L BUN 7 D Creatinine 0.5 L D Creat Clearance w eGFR > 60 POC Glucometer 85 Random Glucose 85 Calcium 7.5 L Total Bilirubin 0.7 AST 36 D ALT 12 Alkaline Phosphatase 64 Total Protein 5.7 L Albumin 1.8 L Vancomycin Pre-Dose Active Medications Generic Name Dose Route Start Last Admin Trade Name Freq PRN Reason Stop Dose Admin Heparin Sodium (Porcine) 5,000 unit 07/15/17 14:00 07/17/17 06:38 Heparin - SQ 5,000 unit TID ELISHA Administration Piperacillin Sod/Tazobactam 100 mls @ 200 mls/hr 07/16/17 02:00 07/17/17 09:57 Sod 4.5 gm/ Dextrose IVPB 200 mls/hr Q8H-IV ELISHA Administration Pantoprazole Sodium 40 mg/ 100 mls @ 200 mls/hr 07/16/17 10:00 07/17/17 09:57 Sodium Chloride IVPB 200 mls/hr DAILY ELISHA Administration Vancomycin HCl 1,250 mg/ 250 mls @ 125 mls/hr 07/16/17 10:00 07/16/17 22:38 Dextrose IVPB 125 mls/hr BID ELISHA Administration Protocol Potassium Chloride 40 meq/ 1,020 mls @ 84 mls/hr 07/16/17 16:15 07/17/17 03:43 Amino Acids IVPB 84 mls/hr Q12H ELISHA Administration Insulin Aspart 1 vial 07/17/17 07:00 07/17/17 06:42 Novolog Vial Sliding Scale - SQ Not Given AM ELISHA Protocol Metoclopramide HCl 10 mg 07/15/17 15:30 07/17/17 09:56 Reglan Injection - IVPB 10 mg Q6H ELISHA Administration Morphine Sulfate 1 mg 07/15/17 11:51 Morphine Injection - IVPUSH Q3H PRN PAIN Multivitamins/Minerals 10 ml 07/17/17 10:00 Infuvite Adult - IV DAILY ELISHA Phenobarbital 150 mg 07/15/17 22:00 07/16/17 21:00 Phenobarbital Injection - IVPB 150 mg HS ELISHA Administration Phenobarbital 97 mg 07/16/17 07:00 07/17/17 06:45 Phenobarbital Injection - IVPB 97 mg AM ELISHA Administration ASSESSMENT/PLAN: Patient is a 22 year old male who resides at the [facility]. He has a past medical history of profound intellecutal disability, pneumonia, meningomyelocele, spastic diplegic cerebral palsy, general idiopathic epilepsy, cortical blindness, osteopenia, ventriculo-peritoneal shunt at 4 years old, balanitis and paraphimosis. He is non verbal, non ambulatory, non weight bearing, and incontinent of bowel and bladder his entire life. He presented to the ED on 07/11/2017 after being noted to be tachycardic, hypoxic at [place]. In the ED patient was noted to have a fever of 102F with rhonchorous breath sounds. He was last admitted to [facility]/ICU for left lobar pneumonia on 07/29/2016 and was discharged on 08/08/2016. Imaging: Chest Xray: 07/17/2017: No pneumothorax, unchanged contour of the cardiomediastinal silhouette, extensive scoliosis of the thoracic spine. No pulmonary consolidations seen, no large pleural effusions seen. Abdominal xray 07/16/2017: true SBO difficult to see in current exam, 07/12 exam showed SBO, but may represent a partially resolving SBO. ID: Severe Sepsis, likely secondary to pneumonia - acute A/P: Continues to require supplemental oxygen, between 3-4 liters Tmax 101F, recultured yesterday, blood cultures pending On Zosyn and Vanco Echo reviewed, unable to rule out vegetation Monitor labs, cultures, fever curve ID following GI: Small bowel obstruction - acute A/P: Abdominal xray shows resolving SBO? (see above) Abdomen still distended, absent bowel sounds, NGT draining bili, apx 300cc Repeat abdominal xray in a.m. Surgery following, notes reviewed Neurology: Epilepsy A/P: As per medical record, last seizure 10/2015 On Phenobarbital Seizure precautions Functional Quadaplegia: A/P: turn and position q2, monitor skin integrity Patient is non verbal, non ambulatory, non weight bearing, and incontinent of bowel and bladder his entire life. F.E.N. Fluids: Clinimax Electrolytes: monitor BMP daily and repelete Nutrition: NPO/On Clinimax Prophylaxis: DVT: Heparin 5,000u sq tid Functional quadraplegia Disposition: Requires continued inpatient care. Full Code. Visit type - Emergency Visit Emergency Visit: Yes ED Registration Date: 07/11/17 Care time: The patient presented to the Emergency Department on the above date and was hospitalized for further evaluation of their emergent condition. - New Patient This patient is new to me today: Yes Date on this admission: 07/17/17 - Critical Care Critical Care patient: No - Discharge Referral Referred to [facility] No
[2017-07-17] MEDS: VANCOMYCIN 1,250 MG in DEXTROSE 5%-WATER - 250 ML IVPB SCH ×2 (11:34→21:48)
[2017-07-17] MEDS: MULTIVIT INJ. ADULT COMBO WITH VIT K 1 COMBO 10 ML VIAL IV SCH (11:37)
[2017-07-17] MEDS ORDERED: LORazepam 2 MG/ML SDV VIAL IVPUSH ONE (12:00)
--- NOTE | 2017-07-17 12:21 | PN ---
Progress Note (short form) - Note Progress Note: + Febrile +BM NG tube in place- 200ml overnight Vital Signs Period Temp Pulse Resp BP Sys/Lyons Pulse Ox Last 24 Hr 97.8 F-102.1 F 80-112 18-20 103-136/45-61 100 Abd soft, ND, NT CBC, BMP 07/17/17 06:45 07/17/17 06:45 AXR in am If improving consider clears Antibiotics for pneumonia per ID Problem List - Problems (1) Distended abdomen Code(s): R14.0 - ABDOMINAL DISTENSION (GASEOUS) (2) SBO (small bowel obstruction) Code(s): K56.69 - OTHER INTESTINAL OBSTRUCTION
--- NOTE | 2017-07-17 15:36 | PN ---
Progress Note, Physician History of Present Illness: Awake, non verbal No acute distress High grade temp noted - Current Medication List Current Medications: Active Medications Acetaminophen (Tylenol Suppository -) 650 mg AR Q6H PRN PRN Reason: FEVER OR PAIN Heparin Sodium (Porcine) (Heparin -) 5,000 unit SQ TID [facility] Last Admin: 07/17/17 06:38 Dose: 5,000 unit Piperacillin Sod/Tazobactam (Sod 4.5 gm/ Dextrose) 100 mls @ 200 mls/hr IVPB Q8H-IV ELISHA Last Admin: 07/17/17 09:57 Dose: 200 mls/hr Pantoprazole Sodium 40 mg/ (Sodium Chloride) 100 mls @ 200 mls/hr IVPB DAILY [facility] Last Admin: 07/17/17 09:57 Dose: 200 mls/hr Vancomycin HCl 1,250 mg/ (Dextrose) 250 mls @ 125 mls/hr IVPB BID ELISHA PRN Reason: Protocol Last Admin: 07/17/17 11:34 Dose: 125 mls/hr Potassium Chloride 40 meq/ (Amino Acids) 1,020 mls @ 84 mls/hr IVPB Q12H ELISHA Last Admin: 07/17/17 11:37 Dose: 84 mls/hr Insulin Aspart (Novolog Vial Sliding Scale -) 1 vial SQ AM ELISHA PRN Reason: Protocol Last Admin: 07/17/17 06:42 Dose: Not Given Metoclopramide HCl (Reglan Injection -) 10 mg IVPB Q6H [facility] Last Admin: 07/17/17 09:56 Dose: 10 mg Morphine Sulfate (Morphine Injection -) 1 mg IVPUSH Q3H PRN PRN Reason: PAIN Multivitamins/Minerals (Infuvite Adult -) 10 ml IV DAILY [facility] Last Admin: 07/17/17 11:37 Dose: 10 ml Phenobarbital (Phenobarbital Injection -) 150 mg IVPB HS [facility] Last Admin: 07/16/17 21:00 Dose: 150 mg Phenobarbital (Phenobarbital Injection -) 97 mg IVPB AM [facility] Last Admin: 07/17/17 06:45 Dose: 97 mg - Objective Vital Signs: Vital Signs Temperature 99.2 F 07/17/17 09:29 Pulse Rate 100 H 07/17/17 09:29 Respiratory Rate 18 07/17/17 09:29 Blood Pressure 136/61 07/17/17 09:29 O2 Sat by Pulse Oximetry (%) 100 07/16/17 21:00 Constitutional: Yes: No Distress Eyes: Yes: Conjunctiva Clear HENT: Yes: Other (+ Hydrocephalus) Cardiovascular: Yes: Regular Rate and Rhythm, S1, S2 Respiratory: Yes: Diminished Gastrointestinal: Yes: Normal Bowel Sounds, Soft. No: Tenderness Labs: CBC, BMP 07/17/17 06:45 07/17/17 06:45 INR, PTT INR 1.51 (0.82-1.09) H 07/14/17 05:00 Assessment/Plan Sepsis possible sources GI, pulmonary, + BC SCN SBO Bibasilar infiltrates Fever Leukocytosis- resolved Hydrocephalus/ mental retardation Will repeat BC x 2 Continue zosyn/ vancomycin
[2017-07-17] MEDS: ACETAMINOPHEN 650 MG SUPP.RECT PR PRN ×2 (15:41→22:34)
[2017-07-17] MEDS: MUPIROCIN 2% TOPICAL OINTMENT FOR DECOLONIZATION NS SCH (17:53)
[2017-07-18] MEDS: POTASSIUM CHLORIDE 40 MEQ in AMINO ACIDS 4.25%/D5W 1,000 ML IVPB SCH ×4 (01:06→15:56)
[2017-07-18] MEDS ORDERED: PIPERACILLIN/TAZOBACTAM 4.5 GM VIAL IVPB ONE ×3 (01:59→16:14)
[2017-07-18] MEDS ORDERED: DEXTROSE 5%-WATER 100 ML IVPB ONE ×3 (02:00→16:14)
[2017-07-18] MEDS: PIPERACILLIN/TAZOB 4.5 GM 4.5 GM in DEXTROSE 5%-WATER 100 ML IVPB SCH ×3 (02:59→17:56)
[2017-07-18] MEDS: METOCLOPRAMIDE HCL INJECTION 10 MG/2 ML VIAL IVPB SCH ×4 (02:59→21:55)
[2017-07-18] MEDS: HEPARIN NA (PORCINE) 5,000 UNITS/ML 1ML VIAL SQ SCH ×3 (06:43→21:58)
[2017-07-18] MEDS: PHENobarbital SODIUM 65 MG/1 ML VIAL IVPB SCH ×2 (06:43→22:05)
[2017-07-18] MEDS: INSULIN SLIDING SCALE (NOVOLOG) 1 VIAL SQ SCH (06:52)
[2017-07-18 07:33] LABS: BASOPHIL 0.2 % (0-2.0); EOSINOPHIL 0.8 % (0-4.5); MCH 29.4 pg (25.7-33.7); MCHC 33.1 g/dl (32.0-35.9); MEAN CELL VOLUME 88.8 fl (80-96); NEUTROPHILS 86.5 % (42.8-82.8); PLATELET COUNT 194 K/MM3 (134-434); RDW 15.1 % (11.9-15.9); WHITE BLOOD COUNT 10.6 K/mm3 (4.0-10.0)
[2017-07-18 07:53] LABS: ALBUMIN 1.7 g/dl (3.4-5.0); ANION GAP 9 (8-16); CALCIUM 7.7 mg/dL (8.5-10.1); CO2 29 mmol/L (21-32); GLUCOSE,RANDOM 101 mg/dL (74-106)
[2017-07-18 07:57] LABS: ALK PHOS 68 U/L (45-117); BILIRUBIN,TOTAL 0.7 mg/dL (0.2-1.0); CREATININE 0.7 mg/dL (0.7-1.3); MAGNESIUM 1.7 mg/dL (1.8-2.4); PHOSPHOROUS 1.2 mg/dL (2.5-4.9); SGOT/AST 9 U/L (15-37); SGPT/ALT 8 U/L (12-78); TOT PROT 5.7 g/dl (6.4-8.2)
[2017-07-18] MEDS ORDERED: SODIUM CHLORIDE 100 ML IVPB ONE (08:57)
[2017-07-18] MEDS ORDERED: PANTOPRAZOLE SODIUM 40 MG VIAL ONE (08:57)
[2017-07-18] MEDS: PANTOPRAZOLE SODIUM 40 MG in SODIUM CHLORIDE 100 ML IVPB SCH (09:11)
--- NOTE | 2017-07-18 09:18 | PN ---
Physical Exam: SUBJECTIVE: Patient seen and examined. Non verbal at baseline. OBJECTIVE: Persistent fevers of 101.F this morning. Blood cultures pending. Abdomen distended, no bowel sounds 250cc via NGT overnight Abd xray 07/18: no path dilatation or worsening distention of small bowel, paucity of gas through the major small bowel and colon > persistent SBO cannot be excluded. Had small bm overnight Mag 1.7 - to be repleted, Potassium 2.7: 3 K riders ordered - repeat K levels @ 3pm today On [facility] Important phone no. [facility] [phone] Mother: Lorie Chamberscom: [phone] [facility] (Mercedes Kothari) [phone] Call placed to mother, for update. no voice mail options, will re-attempt later Vital Signs Period Temp Pulse Resp BP Sys/Lyons Pulse Ox Last 24 Hr 99.2 F-101.2 F 84-105 18-23 104-136/51-63 95-97 GENERAL: Awake, non verbal at baseline HEAD: Macrocephalic with no signs of trauma. EYES: Pupils equal, round and reactive to light, eyes track, sclera anicteric, conjunctiva clear. No lid lag. EARS, NOSE, THROAT: Ears normal, nares patent, oropharynx clear without exudates. Moist mucous membranes. NECK: Normal range of motion, supple without lymphadenopathy, JVD, or masses. LUNGS: Rhonchi present over all lung beckham. Accessory muscle use present HEART: Tachycardia @118. Sinus rhythm, normal S1 and S2 without murmur, rub or gallop. ABDOMEN: Firm, nontender, distended, hypoactive bowel sounds, no guarding, no rebound, no masses. MUSCULOSKELETAL: Normal range of motion at all joints. No bony deformities or tenderness. No CVA tenderness. UPPER EXTREMITIES: 2+ pulses, warm, well-perfused. No cyanosis. No clubbing. No peripheral edema. LOWER EXTREMITIES: 2+ pulses, cool to palpation. No calf tenderness. No peripheral edema. BLE shortened with minimal muscle mass. B/L club feet. NEUROLOGICAL: Eyes track. PERRLA.non verbal SKIN: excoriated skin on his back, buttocks and sacral area. Laboratory Results - last 24 hr 07/17/17 07/18/17 07/18/17 10:00 06:15 06:15 WBC 10.6 H RBC 3.67 L Hgb 10.8 L Hct 32.6 L MCV 88.8 MCH 29.4 MCHC 33.1 RDW 15.1 Plt Count 194 MPV 8.0 Neutrophils % 86.5 H Lymphocytes % 6.3 L D Monocytes % 6.2 Eosinophils % 0.8 Basophils % 0.2 Sodium 149 H Chloride 111 H Carbon Dioxide 29 Anion Gap 9 BUN 14 D Creatinine 0.7 D Creat Clearance w eGFR > 60 POC Glucometer Random Glucose 101 Calcium 7.7 L Phosphorus 1.2 L D Magnesium 1.9 1.7 L Total Bilirubin 0.7 AST 9 L D ALT 8 L D Alkaline Phosphatase 68 Total Protein 5.7 L Albumin 1.7 L 07/18/17 06:48 WBC RBC Hgb Hct MCV MCH MCHC RDW Plt Count MPV Neutrophils % Lymphocytes % Monocytes % Eosinophils % Basophils % Sodium Chloride Carbon Dioxide Anion Gap BUN Creatinine Creat Clearance w eGFR POC Glucometer 81 Random Glucose Calcium Phosphorus Magnesium Total Bilirubin AST ALT Alkaline Phosphatase Total Protein Albumin Active Medications Generic Name Dose Route Start Last Admin Trade Name Freq PRN Reason Stop Dose Admin Acetaminophen 650 mg 07/17/17 10:47 07/17/17 22:34 Tylenol Suppository - DC 650 mg Q6H PRN Administration FEVER OR PAIN Heparin Sodium (Porcine) 5,000 unit 07/15/17 14:00 07/18/17 06:43 Heparin - SQ 5,000 unit TID ELISHA Administration Piperacillin Sod/Tazobactam 100 mls @ 200 mls/hr 07/16/17 02:00 07/18/17 09:11 Sod 4.5 gm/ Dextrose IVPB 200 mls/hr Q8H-IV ELISHA Administration Pantoprazole Sodium 40 mg/ 100 mls @ 200 mls/hr 07/16/17 10:00 07/18/17 09:11 Sodium Chloride IVPB 200 mls/hr DAILY ELISHA Administration Vancomycin HCl 1,250 mg/ 250 mls @ 125 mls/hr 07/16/17 10:00 07/17/17 21:48 Dextrose IVPB 125 mls/hr BID ELISHA Administration Protocol Potassium Chloride 40 meq/ 1,020 mls @ 84 mls/hr 07/16/17 16:15 07/18/17 03:26 Amino Acids IVPB Not Given Q12H ELISHA Insulin Aspart 1 vial 07/17/17 07:00 07/18/17 06:52 Novolog Vial Sliding Scale - SQ Not Given AM ELISHA Protocol Metoclopramide HCl 10 mg 07/15/17 15:30 07/18/17 09:10 Reglan Injection - IVPB 10 mg Q6H ELISHA Administration Morphine Sulfate 1 mg 07/15/17 11:51 Morphine Injection - IVPUSH Q3H PRN PAIN Multivitamins/Minerals 10 ml 07/17/17 10:00 07/17/17 11:37 Infuvite Adult - IV 10 ml DAILY ELISHA Administration Phenobarbital 150 mg 07/15/17 22:00 07/17/17 21:48 Phenobarbital Injection - IVPB 150 mg HS ELISHA Administration Phenobarbital 97 mg 07/16/17 07:00 07/18/17 06:43 Phenobarbital Injection - IVPB 97 mg AM ELISHA Administration ASSESSMENT/PLAN: Patient is a 22 year old male who resides at the [facility]. He has a past medical history of profound intellecutal disability, pneumonia, meningomyelocele, spastic diplegic cerebral palsy, general idiopathic epilepsy, cortical blindness, osteopenia, ventriculo-peritoneal shunt at 4 years old, balanitis and paraphimosis. He is non verbal, non ambulatory, non weight bearing, and incontinent of bowel and bladder his entire life. He presented to the ED on 07/11/2017 after being noted to be tachycardic, hypoxic at [facility]. In the ED patient was noted to have a fever of 102F with rhonchorous breath sounds. He was last admitted to [facility]/ICU for left lobar pneumonia on 07/29/2016 and was discharged on 08/08/2016. Imaging: Chest Xray: 07/17/2017: No pneumothorax, unchanged contour of the cardiomediastinal silhouette, extensive scoliosis of the thoracic spine. No pulmonary consolidations seen, no large pleural effusions seen. Abdominal xray 07/16/2017: true SBO difficult to see in current exam, 07/12 exam showed SBO, but may represent a partially resolving SBO. Abd xray 07/18: no path dilatation or worsening distention of small bowel, paucity of gas through the major small bowel and colon > persistent SBO cannot be excluded. ID: Severe Sepsis, likely secondary to pneumonia - acute A/P: Continues to require supplemental oxygen, between 3-4 liters Tmax 101.2F, repeat blood cultures pending On Zosyn and Vanco Echo reviewed, unable to rule out vegetation Monitor labs, cultures, fever curve ID following GI: Small bowel obstruction - acute A/P: Abdominal xray 07/18/ shows persistent SBO cannot be excluded Abdomen still distended, absent bowel sounds, NGT draining bili, apx 250cc overnight Surgery following, notes reviewed On Clinimax Neurology: Epilepsy A/P: As per medical record, last seizure 10/2015 On Phenobarbital Seizure precautions Functional Quadaplegia: A/P: turn and position q2, monitor skin integrity Patient is non verbal, non ambulatory, non weight bearing, and incontinent of bowel and bladder his entire life. F.E.N. Fluids: Clinimax Electrolytes: Hypomag 1.7: 1 gram IV ordered, Potassium 2.7: 3 K riders, repeat labs this afternoon Nutrition: NPO/On Clinimax Prophylaxis: DVT: Heparin 5,000u sq tid Functional quadraplegia Disposition: Requires continued inpatient care. Full Code. Visit type - Emergency Visit Emergency Visit: Yes ED Registration Date: 07/11/17 Care time: The patient presented to the Emergency Department on the above date and was hospitalized for further evaluation of their emergent condition. - New Patient This patient is new to me today: No - Critical Care Critical Care patient: No - Discharge Referral Referred to [facility] No
[2017-07-18] MEDS ORDERED: MAGNESIUM SULF 50% (8.12 MEQ/2 ML-1 GM VIAL) IVPB ONE ×2 (09:45→12:45)
[2017-07-18] MEDS: MULTIVIT INJ. ADULT COMBO WITH VIT K 1 COMBO 10 ML VIAL IV SCH (11:16)
[2017-07-18] MEDS: KCL 10 MEQ IVPB 100 ML IVPB SCH ×3 (11:16→13:09)
[2017-07-18] MEDS: VANCOMYCIN 1,250 MG in DEXTROSE 5%-WATER - 250 ML IVPB SCH ×2 (11:16→22:05)
[2017-07-18] MEDS: ACETAMINOPHEN 650 MG SUPP.RECT PR PRN (11:17)
--- NOTE | 2017-07-18 13:16 | PN ---
Progress Note (short form) - Note Progress Note: + Febrile Another large BM Vital Signs Period Temp Pulse Resp BP Sys/Lyons Pulse Ox Last 24 Hr 99.8 F-101.2 F 84-105 18-23 104-131/51-63 97-97 Abd soft, no rebound CBC, BMP 07/18/17 06:15 07/18/17 06:15 AXR- air in colon, persistent ileus Can clamp NG tube and check residuals Correct electrolyte abnormalities Problem List - Problems (1) Distended abdomen Code(s): R14.0 - ABDOMINAL DISTENSION (GASEOUS) (2) SBO (small bowel obstruction) Code(s): K56.69 - OTHER INTESTINAL OBSTRUCTION
--- NOTE | 2017-07-18 14:16 | PN ---
Progress Note, Physician History of Present Illness: Awake, non verbal Remains febrile WBC slightly higher today Repeat BC no growth - Current Medication List Current Medications: Active Medications Acetaminophen (Tylenol Suppository -) 650 mg KY Q6H PRN PRN Reason: FEVER OR PAIN Last Admin: 07/18/17 11:17 Dose: 650 mg Heparin Sodium (Porcine) (Heparin -) 5,000 unit SQ TID ELISHA Last Admin: 07/18/17 06:43 Dose: 5,000 unit Piperacillin Sod/Tazobactam (Sod 4.5 gm/ Dextrose) 100 mls @ 200 mls/hr IVPB Q8H-IV ELISHA Last Admin: 07/18/17 09:11 Dose: 200 mls/hr Pantoprazole Sodium 40 mg/ (Sodium Chloride) 100 mls @ 200 mls/hr IVPB DAILY ELISHA Last Admin: 07/18/17 09:11 Dose: 200 mls/hr Vancomycin HCl 1,250 mg/ (Dextrose) 250 mls @ 125 mls/hr IVPB BID ELISHA PRN Reason: Protocol Last Admin: 07/18/17 11:16 Dose: 125 mls/hr Potassium Chloride 40 meq/ (Amino Acids) 1,020 mls @ 84 mls/hr IVPB Q12H ELISHA Last Admin: 07/18/17 11:16 Dose: 84 mls/hr Insulin Aspart (Novolog Vial Sliding Scale -) 1 vial SQ AM ELISHA PRN Reason: Protocol Last Admin: 07/18/17 06:52 Dose: Not Given Metoclopramide HCl (Reglan Injection -) 10 mg IVPB Q6H ELISHA Last Admin: 07/18/17 09:10 Dose: 10 mg Multivitamins/Minerals (Infuvite Adult -) 10 ml IV DAILY ELISHA Last Admin: 07/18/17 11:16 Dose: 10 ml Phenobarbital (Phenobarbital Injection -) 150 mg IVPB HS ELISHA Last Admin: 07/17/17 21:48 Dose: 150 mg Phenobarbital (Phenobarbital Injection -) 97 mg IVPB AM ELISHA Last Admin: 07/18/17 06:43 Dose: 97 mg - Objective Vital Signs: Vital Signs Temperature 101.2 F H 07/18/17 09:14 Pulse Rate 101 H 07/18/17 10:52 Respiratory Rate 22 07/18/17 09:14 Blood Pressure 115/51 07/18/17 09:14 O2 Sat by Pulse Oximetry (%) 97 07/18/17 10:52 Constitutional: Yes: No Distress HENT: Yes: Other (+ hydrocephalus) Cardiovascular: Yes: Regular Rate and Rhythm, S1, S2 Respiratory: Yes: Diminished Gastrointestinal: Yes: Normal Bowel Sounds, Soft, Abdomen, Obese. No: Tenderness Labs: CBC, BMP 07/18/17 06:15 07/18/17 06:15 INR, PTT INR 1.51 (0.82-1.09) H 07/14/17 05:00 Assessment/Plan Sepsis possible sources GI, pulmonary, + BC SCN SBO Bibasilar infiltrates Fever Hydrocephalus/ mental retardation Continue zosyn/ vancomycin
[2017-07-18] MEDS ORDERED: PT OWN MED DRAWER 7, Y5N ONE (19:00)
[2017-07-18] MEDS ORDERED: INSULIN (NOVOLOG) ASPART 100 UNITS/ML 10ML VIAL ONE (19:00)
[2017-07-19] MEDS: ACETAMINOPHEN 650 MG SUPP.RECT PR PRN (01:08)
[2017-07-19] MEDS: PIPERACILLIN/TAZOB 4.5 GM 4.5 GM in DEXTROSE 5%-WATER 100 ML IVPB SCH ×3 (03:00→17:40)
[2017-07-19] MEDS ORDERED: DEXTROSE 5%-WATER 100 ML IVPB ONE ×3 (03:02→17:30)
[2017-07-19] MEDS ORDERED: PIPERACILLIN/TAZOBACTAM 4.5 GM VIAL IVPB ONE ×3 (03:02→17:29)
[2017-07-19] MEDS: METOCLOPRAMIDE HCL INJECTION 10 MG/2 ML VIAL IVPB SCH ×4 (03:23→23:13)
[2017-07-19] MEDS: POTASSIUM CHLORIDE 40 MEQ in AMINO ACIDS 4.25%/D5W 1,000 ML IVPB SCH ×2 (03:24→16:44)
[2017-07-19] MEDS: HEPARIN NA (PORCINE) 5,000 UNITS/ML 1ML VIAL SQ SCH ×3 (06:09→23:13)
[2017-07-19] MEDS: INSULIN SLIDING SCALE (NOVOLOG) 1 VIAL SQ SCH (06:10)
[2017-07-19] MEDS: PHENobarbital SODIUM 65 MG/1 ML VIAL IVPB SCH ×2 (06:12→23:13)
[2017-07-19 07:57] LABS: BASOPHIL 0.3 % (0-2.0); MCH 29.8 pg (25.7-33.7); MCHC 33.2 g/dl (32.0-35.9); MEAN CELL VOLUME 89.5 fl (80-96); MEAN PLT VOLUME 8.1 fl (7.5-11.1); NEUTROPHILS 82.7 % (42.8-82.8); PLATELET COUNT 207 K/MM3 (134-434); RDW 15.4 % (11.9-15.9); WHITE BLOOD COUNT 10.8 K/mm3 (4.0-10.0)
[2017-07-19] MEDS ORDERED: PANTOPRAZOLE SODIUM 40 MG VIAL ONE (08:54)
[2017-07-19] MEDS ORDERED: SODIUM CHLORIDE 100 ML IVPB ONE (08:54)
[2017-07-19 09:04] LABS: ALBUMIN 1.6 g/dl (3.4-5.0); ALK PHOS 82 U/L (45-117); ANION GAP 9 (8-16); BILIRUBIN,TOTAL 0.5 mg/dL (0.2-1.0); CALCIUM 7.8 mg/dL (8.5-10.1); CO2 28 mmol/L (21-32); CREATININE 0.7 mg/dL (0.7-1.3); GLUCOSE,RANDOM 104 mg/dL (74-106); MAGNESIUM 2.1 mg/dL (1.8-2.4); SGOT/AST 12 U/L (15-37); SGPT/ALT 9 U/L (12-78); TOT PROT 5.7 g/dl (6.4-8.2)
[2017-07-19] MEDS: PANTOPRAZOLE SODIUM 40 MG in SODIUM CHLORIDE 100 ML IVPB SCH (09:33)
--- NOTE | 2017-07-19 09:33 | PN ---
Progress Note (short form) - Note Progress Note: No new events NG tube in place Vital Signs Period Temp Pulse Resp BP Sys/Lyons Pulse Ox Last 24 Hr 98.2 F-101.3 F 93-108 22-33 108-143/47-66 97-100 Abd soft, no rebound CBC, BMP 07/19/17 07:00 07/19/17 07:00 Persistent ileus Will likely further resolve when underlying pneumonia resolves No emergent surgical intervention at this time Problem List - Problems (1) Distended abdomen Code(s): R14.0 - ABDOMINAL DISTENSION (GASEOUS) (2) SBO (small bowel obstruction) Code(s): K56.69 - OTHER INTESTINAL OBSTRUCTION
[2017-07-19] MEDS: VANCOMYCIN 1,250 MG in DEXTROSE 5%-WATER - 250 ML IVPB SCH ×2 (10:15→23:14)
--- NOTE | 2017-07-19 11:45 | PN ---
Physical Exam: SUBJECTIVE: Patient seen and examined at bedside. OBJECTIVE: Vital Signs Period Temp Pulse Resp BP Sys/Lyons Pulse Ox Last 24 Hr 98.2 F-101.3 F 93-108 22-33 108-143/47-66 100 GENERAL/NEURO: The patient is awake. Nonverbal at baseline. Withdraws to physical stimuli. HEAD: Hydrocephalic. LUNGS: Rhonchorous breath sounds throughout; no wheezes, no crackles, no accessory muscle use. HEART: Regular rate and rhythm, S1, S2 without murmur, rub or gallop. ABDOMEN: Soft, nontender, nondistended, normoactive bowel sounds, no guarding, no rebound EXTREMITIES: 2+ pulses, warm, well-perfused, no edema. Laboratory Results - last 24 hr 07/18/17 07/19/17 07/19/17 17:00 06:08 07:00 WBC 10.8 H RBC 3.43 L Hgb 10.2 L Hct 30.7 L MCV 89.5 MCH 29.8 MCHC 33.2 RDW 15.4 Plt Count 207 MPV 8.1 Neutrophils % 82.7 Lymphocytes % 6.4 L Monocytes % 9.6 Eosinophils % 1.0 Basophils % 0.3 Sodium Potassium 4.0 D Chloride Carbon Dioxide Anion Gap BUN Creatinine Creat Clearance w eGFR POC Glucometer 99 Random Glucose Calcium Magnesium Total Bilirubin AST ALT Alkaline Phosphatase Total Protein Albumin 07/19/17 07:00 WBC RBC Hgb Hct MCV MCH MCHC RDW Plt Count MPV Neutrophils % Lymphocytes % Monocytes % Eosinophils % Basophils % Sodium 152 H Potassium 3.2 L Chloride 115 H Carbon Dioxide 28 Anion Gap 9 BUN 17 D Creatinine 0.7 Creat Clearance w eGFR > 60 POC Glucometer Random Glucose 104 Calcium 7.8 L Magnesium 2.1 D Total Bilirubin 0.5 D AST 12 L D ALT 9 L Alkaline Phosphatase 82 D Total Protein 5.7 L Albumin 1.6 L Active Medications Generic Name Dose Route Start Last Admin Trade Name Freq PRN Reason Stop Dose Admin Acetaminophen 650 mg 07/17/17 10:47 07/19/17 01:08 Tylenol Suppository - NV 650 mg Q6H PRN Administration FEVER OR PAIN Heparin Sodium (Porcine) 5,000 unit 07/15/17 14:00 07/19/17 06:09 Heparin - SQ 5,000 unit TID ELISHA Administration Piperacillin Sod/Tazobactam 100 mls @ 200 mls/hr 07/16/17 02:00 07/19/17 10:13 Sod 4.5 gm/ Dextrose IVPB 200 mls/hr Q8H-IV ELISHA Administration Pantoprazole Sodium 40 mg/ 100 mls @ 200 mls/hr 07/16/17 10:00 07/19/17 09:33 Sodium Chloride IVPB 200 mls/hr DAILY ELISHA Administration Vancomycin HCl 1,250 mg/ 250 mls @ 125 mls/hr 07/16/17 10:00 07/19/17 10:15 Dextrose IVPB 125 mls/hr BID ELISHA Administration Protocol Potassium Chloride 40 meq/ 1,020 mls @ 84 mls/hr 07/16/17 16:15 07/19/17 03:24 Amino Acids IVPB 84 mls/hr Q12H ELISHA Administration Insulin Aspart 1 vial 07/17/17 07:00 07/19/17 06:10 Novolog Vial Sliding Scale - SQ Not Given AM ELISHA Protocol Metoclopramide HCl 10 mg 07/15/17 15:30 07/19/17 08:57 Reglan Injection - IVPB 10 mg Q6H ELISHA Administration Multivitamins/Minerals 10 ml 07/17/17 10:00 07/18/17 11:16 Infuvite Adult - IV 10 ml DAILY ELISHA Administration Phenobarbital 150 mg 07/15/17 22:00 07/18/17 22:05 Phenobarbital Injection - IVPB 150 mg HS ELISHA Administration Phenobarbital 97 mg 07/16/17 07:00 07/19/17 06:12 Phenobarbital Injection - IVPB 97 mg AM ELISHA Administration ASSESSMENT/PLAN: 21 year-old male with a [facility] signficant for profound developmental delays, spastic cerebral palsy, cortical blindness, seizure disorder, club feet, meningiomyelocele at , spinal defect, and 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 Admitted for bilateral pneumonia and SBO. Severe Sepsis secondary to bilateral pneumonia and Staph auricularis bacteremia --continues to spike high fevers, Tm101.3 --continue Vanc (day #3) and Zosyn (day #3) --ID following SBO --07/18 KUB: no significant change in SBO --NGT to LWS --NPO --surgery following Seizure disorder --no seizure activity --continue phenobarbital Hypernatremia --free water deficit 2.5L --is getting 1L D5 in clinimix over 24 hours Hypokalemia --repleted with Clinimix (80meq in 24 hours) + Kphos 45meq x 1 + and 1 run of K 10meq x 1 Hypophosphatemia --repleted Functional quadripalegic --profound developmental delays, spastic limbs, cortical blindness, club feet , contracted extremities --fully dependent for all ADLs F/E/N Fluids/Nutrition: Clinimix @ 83mL/hr Electrolytes: replete as indicated DVT prophylaxis: subq heparin Dispo: continues to require inpatient care. Full Code. Visit type - Emergency Visit Emergency Visit: Yes ED Registration Date: 07/11/17 Care time: The patient presented to the Emergency Department on the above date and was hospitalized for further evaluation of their emergent condition. - New Patient This patient is new to me today: Yes Date on this admission: 07/19/17 - Critical Care Critical Care patient: No
[2017-07-19] MEDS ORDERED: SODIUM CHLORIDE 0.45% 1,000 ML IV SCH (12:00)
[2017-07-19 12:46] LABS: PHOSPHOROUS 0.4 mg/dL (2.5-4.9)
[2017-07-19] MEDS: KCL 10 MEQ IVPB 100 ML IVPB SCH ×2 (12:56→13:46)
[2017-07-19] MEDS ORDERED: POTASSIUM PHOSPHATE 30 MM in DEXTROSE 5%-WATER - 500 ML IVPB ONE (13:19)
[2017-07-19] MEDS: ACETAMINOPHEN 1000 MG/100 ML VIAL (NON FORMULARY) IVPB PRN (15:18)
[2017-07-19] MEDS: MULTIVIT INJ. ADULT COMBO WITH VIT K 1 COMBO 10 ML VIAL IV SCH (16:47)
[2017-07-20] MEDS: ACETAMINOPHEN 1000 MG/100 ML VIAL (NON FORMULARY) IVPB PRN ×2 (00:21→05:28)
[2017-07-20] MEDS ORDERED: PIPERACILLIN/TAZOBACTAM 4.5 GM VIAL IVPB ONE ×3 (02:12→17:52)
[2017-07-20] MEDS ORDERED: DEXTROSE 5%-WATER 100 ML IVPB ONE ×3 (02:12→17:52)
[2017-07-20] MEDS: PIPERACILLIN/TAZOB 4.5 GM 4.5 GM in DEXTROSE 5%-WATER 100 ML IVPB SCH ×3 (02:47→18:03)
[2017-07-20] MEDS: METOCLOPRAMIDE HCL INJECTION 10 MG/2 ML VIAL IVPB SCH ×4 (02:48→22:14)
[2017-07-20] MEDS ORDERED: ALBUTEROL SO4 2.5/IPRATROPIUM 0.5 INH SOL 3 ML VIAL.NEB. NEB ONE (03:11)
--- NOTE | 2017-07-20 03:19 | HOSP ---
Subjective - Review of Symptoms Events since last encounter: Hospitalist Encounter Notified by the RN, that the patient was having labored breathing using his accessory muscles. Arrived to bedside, patient is awake, nonverbal at baseline, withdraws to physical stimulus Upon auscultation of lung beckham +coarse rhonchi noted bilaterally Ordered duoneb x1 stat Had nursing staff recheck rectal temp 100.0 Received Chest xray report- NGT in place. Advised RN to maintain HOB 30 deg Will continue to monitor Physical Examination Vital Signs: Vital Signs Temperature 100.0 F H 07/20/17 03:12 Pulse Rate 103 H 07/20/17 03:02 Respiratory Rate 28 H 07/20/17 03:02 Blood Pressure 156/60 07/20/17 03:02 O2 Sat by Pulse Oximetry (%) 100 07/19/17 09:00 Constitutional: Yes: Mild Distress HENT: Yes: Other (Macrocephalic) Respiratory: Yes: Rhonchi, Tachypnea Gastrointestinal: Yes: Soft, Abdomen, Obese Renal/: Yes: Schwartz Present Neurological: Yes: Other (Awake- nonverbal to baseline) Psychiatric: Yes: Other (Awake) Labs: CBC, BMP 07/19/17 07:00 07/19/17 07:00 Intake & Output 07/17/17 07/18/17 07/19/17 07/20/17 23:59 23:59 23:59 23:59 Intake Total 2368 3424 2908 Output Total 2250 3150 2550 Balance 118 274 358 Weight 87.203 kg 86.455 kg Microbiology 07/16/17 17:00 Blood Culture - Preliminary Blood - Peripheral Venous NO GROWTH OBTAINED AFTER 72 HOURS, INCUBATION TO CONTINUE FOR 2 DAYS. 07/16/17 17:00 Blood Culture - Preliminary Blood - Peripheral Venous NO GROWTH OBTAINED AFTER 72 HOURS, INCUBATION TO CONTINUE FOR 2 DAYS.
[2017-07-20] MEDS: POTASSIUM CHLORIDE 40 MEQ in AMINO ACIDS 4.25%/D5W 1,000 ML IVPB SCH ×2 (05:28→17:07)
[2017-07-20] MEDS: PHENobarbital SODIUM 65 MG/1 ML VIAL IVPB SCH ×2 (06:42→22:20)
[2017-07-20] MEDS: HEPARIN NA (PORCINE) 5,000 UNITS/ML 1ML VIAL SQ SCH ×3 (06:42→22:19)
[2017-07-20] MEDS: INSULIN SLIDING SCALE (NOVOLOG) 1 VIAL SQ SCH (06:54)
[2017-07-20 08:30] LABS: BASOPHIL 0.4 % (0-2.0); EOSINOPHIL 0.8 % (0-4.5); MCH 29.4 pg (25.7-33.7); MCHC 32.8 g/dl (32.0-35.9); MEAN CELL VOLUME 89.7 fl (80-96); MEAN PLT VOLUME 8.4 fl (7.5-11.1); PLATELET COUNT 232 K/MM3 (134-434); RDW 15.5 % (11.9-15.9); WHITE BLOOD COUNT 11.6 K/mm3 (4.0-10.0)
--- NOTE | 2017-07-20 09:22 | PN ---
Progress Note (short form) - Note Progress Note: No new events + Febrile NG tube in place Vital Signs Period Temp Pulse Resp BP Sys/Lyons Pulse Ox Last 24 Hr 99.0 F-101.8 F 93-103 20-28 110-156/51-72 98 Abd soft, no rebound CBC, BMP 07/20/17 06:00 07/19/17 07:00 Correct electrolytes Clamp NG tube and check residuals Problem List - Problems (1) Distended abdomen Code(s): R14.0 - ABDOMINAL DISTENSION (GASEOUS) (2) SBO (small bowel obstruction) Code(s): K56.69 - OTHER INTESTINAL OBSTRUCTION
[2017-07-20] MEDS ORDERED: PANTOPRAZOLE SODIUM 40 MG VIAL ONE (10:16)
[2017-07-20] MEDS ORDERED: SODIUM CHLORIDE 100 ML IVPB ONE (10:16)
[2017-07-20 10:18] LABS: ALBUMIN 1.6 g/dl (3.4-5.0); ANION GAP 10 (8-16); BILIRUBIN,TOTAL 0.3 mg/dL (0.2-1.0); CALCIUM 7.7 mg/dL (8.5-10.1); CO2 25 mmol/L (21-32); CREATININE 0.8 mg/dL (0.7-1.3); GLUCOSE,RANDOM 107 mg/dL (74-106); MAGNESIUM 1.8 mg/dL (1.8-2.4); SGOT/AST 13 U/L (15-37); SGPT/ALT 8 U/L (12-78)
[2017-07-20 10:23] LABS: ALK PHOS 85 U/L (45-117)
[2017-07-20 10:48] LABS: PHOSPHOROUS 0.7 mg/dL (2.5-4.9)
[2017-07-20] MEDS: PANTOPRAZOLE SODIUM 40 MG in SODIUM CHLORIDE 100 ML IVPB SCH (11:09)
[2017-07-20] MEDS: VANCOMYCIN 1,250 MG in DEXTROSE 5%-WATER - 250 ML IVPB SCH ×2 (11:15→22:25)
[2017-07-20] MEDS: ALBUTEROL SO4 2.5/IPRATROPIUM 0.5 INH SOL 3 ML VIAL.NEB. NEB SCH ×3 (11:40→22:59)
[2017-07-20 12:51] LABS: ARTERIAL BLD GAS O2 SATURATION 98.7 % (90-98.9); ARTERIAL BLOOD GAS BASE EXCESS -0.9 meq/l (-2-2); ARTERIAL BLOOD GAS pH 7.46 (7.35-7.45)
[2017-07-20 12:52] LABS: ALLENS TEST POSITIVE; ART PUNCT SITE LEFT RADIAL; LPM/O2% 4L; PT. ON O2? YES; TYPE OF O2 NASAL
[2017-07-20] MEDS: POTASSIUM PHOSPHATE 30 MM in DEXTROSE 5%-WATER - 500 ML IVPB SCH ×2 (15:30→22:32)
--- NOTE | 2017-07-20 17:02 | PN ---
Physical Exam: SUBJECTIVE: Patient seen and examined at bedside. Parents present. Discussed care at length. OBJECTIVE: Vital Signs Period Temp Pulse Resp BP Sys/Lyons Pulse Ox Last 24 Hr 99.3 F-101.9 F 100-120 20-28 110-156/51-82 98-100 GENERAL/NEURO: The patient is awake. Nonverbal at baseline. Withdraws to physical stimuli. HEAD: Hydrocephalic. LUNGS: Rhonchorous breath sounds throughout; tachypnic HEART: Regular rate and rhythm, S1, S2 without murmur, rub or gallop. ABDOMEN: Soft, nontender, nondistended, normoactive bowel sounds, no guarding, no rebound EXTREMITIES: 2+ pulses, warm, well-perfused, no edema. Laboratory Results - last 24 hr 07/19/17 07/20/17 07/20/17 16:59 06:00 06:50 WBC 11.6 H RBC 3.35 L Hgb 9.8 L Hct 30.0 L MCV 89.7 MCH 29.4 MCHC 32.8 RDW 15.5 Plt Count 232 MPV 8.4 Neutrophils % 82.0 Lymphocytes % 6.4 L Monocytes % 10.4 H Eosinophils % 0.8 Basophils % 0.4 Puncture Site ABG pH ABG pCO2 at Pt Temp ABG pO2 at Pt Temp ABG HCO3 ABG O2 Sat (Measured) ABG O2 Content ABG Base Excess Bernabe Test O2 Delivery Device Oxygen Flow Rate PEEP Sodium Potassium Chloride Carbon Dioxide Anion Gap BUN Creatinine Creat Clearance w eGFR POC Glucometer 114 95 Random Glucose Calcium Phosphorus Magnesium Total Bilirubin AST ALT Alkaline Phosphatase Total Protein Albumin 07/20/17 07/20/17 09:28 12:45 WBC RBC Hgb Hct MCV MCH MCHC RDW Plt Count MPV Neutrophils % Lymphocytes % Monocytes % Eosinophils % Basophils % Puncture Site Left radial ABG pH 7.46 H D ABG pCO2 at Pt Temp 31.6 L D ABG pO2 at Pt Temp 103.0 H ABG HCO3 22.0 ABG O2 Sat (Measured) 98.7 ABG O2 Content 13.7 L ABG Base Excess -0.9 Bernabe Test Positive O2 Delivery Device Nasal Oxygen Flow Rate 4l PEEP 0.0 Sodium 149 H Potassium 3.7 Chloride 114 H Carbon Dioxide 25 Anion Gap 10 BUN 21 H D Creatinine 0.8 Creat Clearance w eGFR > 60 POC Glucometer Random Glucose 107 H Calcium 7.7 L Phosphorus 0.7 L* Magnesium 1.8 Total Bilirubin 0.3 D AST 13 L ALT 8 L Alkaline Phosphatase 85 Total Protein 6.0 L Albumin 1.6 L Active Medications Generic Name Dose Route Start Last Admin Trade Name Petra PRN Reason Stop Dose Admin Acetaminophen 1,000 mg 07/20/17 16:45 Ofirmev Injection - IVPB Q8H ELISHA Albuterol/Ipratropium 1 amp 07/20/17 12:00 07/20/17 11:40 Duoneb - NEB 1 amp QIDR ELISHA Administration Heparin Sodium (Porcine) 5,000 unit 07/15/17 14:00 07/20/17 15:31 Heparin - SQ 5,000 unit TID ELISHA Administration Piperacillin Sod/Tazobactam 100 mls @ 200 mls/hr 07/16/17 02:00 07/20/17 11:15 Sod 4.5 gm/ Dextrose IVPB 200 mls/hr Q8H-IV ELISHA Administration Pantoprazole Sodium 40 mg/ 100 mls @ 200 mls/hr 07/16/17 10:00 07/20/17 11:09 Sodium Chloride IVPB 200 mls/hr DAILY ELISHA Administration Vancomycin HCl 1,250 mg/ 250 mls @ 125 mls/hr 07/16/17 10:00 07/20/17 11:15 Dextrose IVPB 125 mls/hr BID ELISHA Administration Protocol Potassium Chloride 40 meq/ 1,020 mls @ 84 mls/hr 07/16/17 16:15 07/20/17 05:28 Amino Acids IVPB 84 mls/hr Q12H ELISHA Administration Potassium Phosphate 30 mm/ 510 mls @ 85 mls/hr 07/20/17 11:30 07/20/17 15:30 Dextrose IVPB 07/21/17 05:29 85 mls/hr Q12H ELISHA Administration 30 MM/6 HR Insulin Aspart 1 vial 07/17/17 07:00 07/20/17 06:54 Novolog Vial Sliding Scale - SQ Not Given AM ELISHA Protocol Metoclopramide HCl 10 mg 07/15/17 15:30 07/20/17 15:31 Reglan Injection - IVPB 10 mg Q6H ELISHA Administration Multivitamins/Minerals 10 ml 07/17/17 10:00 07/19/17 16:47 Infuvite Adult - IV 10 ml DAILY ELISHA Administration Phenobarbital 150 mg 07/15/17 22:00 07/19/17 23:13 Phenobarbital Injection - IVPB 150 mg HS ELISHA Administration Phenobarbital 97 mg 07/16/17 07:00 07/20/17 06:42 Phenobarbital Injection - IVPB 97 mg AM ELISHA Administration ASSESSMENT/PLAN 21 year-old male with a H signficant for profound developmental delays, spastic cerebral palsy, cortical blindness, seizure disorder, club feet, meningiomyelocele at , spinal defect, and [employer]IST shunt. Admitted for bilateral pneumonia and SBO. Severe Sepsis secondary to bilateral pneumonia and Staph auricularis bacteremia --continues to spike fevers Tm 101.1, WBC trending slightly upward --tachypnic today likely secondary to fever as CXR without significant change --Tylenol switched to q8h scheduled, ice packs applied, RR improved from 40 to 22-24 --continue Vanc (day #4) and Zosyn (day #4) --ID following SBO --07/18 KUB: no significant change in SBO --NGT to LWS, 150mL output today --surgery following Seizure disorder --no seizure activity --continue phenobarbital Hypernatremia --improving, getting D5 with Clinimix Hypokalemia --improved Hypophosphatemia --replete Functional quadripalegic --profound developmental delays, spastic limbs, cortical blindness, club feet , contracted extremities --fully dependent for all ADLs F/E/N Fluids/Nutrition: Clinimix @ 83mL/hr Electrolytes: replete as indicated DVT prophylaxis: subq heparin Dispo: continues to require inpatient care. Full Code. Visit type - Emergency Visit Emergency Visit: Yes ED Registration Date: 07/11/17 Care time: The patient presented to the Emergency Department on the above date and was hospitalized for further evaluation of their emergent condition. - New Patient This patient is new to me today: No - Critical Care Critical Care patient: No
[2017-07-20] MEDS: ACETAMINOPHEN 1000 MG/100 ML VIAL (NON FORMULARY) IVPB SCH ×2 (17:07→23:55)
[2017-07-20] MEDS: MULTIVIT INJ. ADULT COMBO WITH VIT K 1 COMBO 10 ML VIAL IV SCH (17:07)
--- NOTE | 2017-07-21 00:07 | HOSP ---
Subjective - Review of Symptoms Events since last encounter: Hospitalist Encounter Notified by RN that the patient is tachypneic. Arrived to bedside, patient is awake at baseline R- 34, Coarse Rhonchi throughout Ordered Atrovent neb x1 now Instructed RN, to give Tylenol IV now for fever reported earlier, along with icepacks Will continue to monitor Patient reassessed, RR from 34~28, Spo2 98% on NRB. Informed Day Team of this AMs events for follow up Physical Examination Vital Signs: Vital Signs Temperature 100.1 F H 07/20/17 23:35 Pulse Rate 107 H 07/20/17 22:53 Respiratory Rate 35 H 07/20/17 23:36 Blood Pressure 150/74 07/20/17 22:41 O2 Sat by Pulse Oximetry (%) 97 07/20/17 22:53 Constitutional: Yes: Mild Distress HENT: Yes: Other (Macrocephalic) Cardiovascular: Yes: Tachycardia Respiratory: Yes: Rhonchi, Tachypnea, Other (NRB) Gastrointestinal: Yes: Other (NGT- Left Nare) Neurological: Yes: Other (awake- nonverbal at baseline) Labs: CBC, BMP 07/20/17 06:00 07/20/17 09:28 Current Medications Generic Name Dose Route Start Last Admin Trade Name Freq PRN Reason Stop Dose Admin Acetaminophen 1,000 mg 07/20/17 16:45 07/20/17 23:55 Ofirmev Injection - IVPB 1,000 mg Q8H ELISHA Administration Albuterol/Ipratropium 1 amp 07/20/17 12:00 07/20/17 22:59 Duoneb - NEB 1 amp QIDR ELISHA Administration Heparin Sodium (Porcine) 5,000 unit 07/15/17 14:00 07/20/17 22:19 Heparin - SQ 5,000 unit TID ELISHA Administration Piperacillin Sod/Tazobactam 100 mls @ 200 mls/hr 07/16/17 02:00 07/20/17 18:03 Sod 4.5 gm/ Dextrose IVPB 200 mls/hr Q8H-IV ELISHA Administration Pantoprazole Sodium 40 mg/ 100 mls @ 200 mls/hr 07/16/17 10:00 07/20/17 11:09 Sodium Chloride IVPB 200 mls/hr DAILY ELISHA Administration Vancomycin HCl 1,250 mg/ 250 mls @ 125 mls/hr 07/16/17 10:00 07/20/17 22:25 Dextrose IVPB 125 mls/hr BID ELISHA Administration Protocol Potassium Chloride 40 meq/ 1,020 mls @ 84 mls/hr 07/16/17 16:15 07/20/17 17:07 Amino Acids IVPB 84 mls/hr Q12H ELISHA Administration Potassium Phosphate 30 mm/ 510 mls @ 85 mls/hr 07/20/17 11:30 07/20/17 22:32 Dextrose IVPB 07/21/17 05:29 85 mls/hr Q12H ELISHA Administration 30 MM/6 HR Insulin Aspart 1 vial 07/17/17 07:00 07/20/17 06:54 Novolog Vial Sliding Scale - SQ Not Given AM ELISHA Protocol Metoclopramide HCl 10 mg 07/15/17 15:30 07/20/17 22:14 Reglan Injection - IVPB 10 mg Q6H ELISHA Administration Multivitamins/Minerals 10 ml 07/17/17 10:00 07/20/17 17:07 Infuvite Adult - IV 10 ml DAILY ELISHA Administration Phenobarbital 150 mg 07/15/17 22:00 07/20/17 22:20 Phenobarbital Injection - IVPB 150 mg HS ELISHA Administration Phenobarbital 97 mg 07/16/17 07:00 07/20/17 06:42 Phenobarbital Injection - IVPB 97 mg AM ELISHA Administration Critical Care Total Critical Care Time (in minutes): 32 Critical Care Statement: The care of this patient involved high complexity decision making to prevent further life threatening deterioration of the patient 's condition and/or to evaluate & treat vital organ system(s) failure or risk of failure.
[2017-07-21] MEDS ORDERED: IPRATROPIUM BR 0.02% 0.5 MG/2.5 ML VIAL.NEB. NEB ONE (00:29)
[2017-07-21] MEDS ORDERED: DEXTROSE 5%-WATER 100 ML IVPB ONE (02:11)
[2017-07-21] MEDS ORDERED: PIPERACILLIN/TAZOBACTAM 4.5 GM VIAL IVPB ONE (02:11)
[2017-07-21] MEDS: PIPERACILLIN/TAZOB 4.5 GM 4.5 GM in DEXTROSE 5%-WATER 100 ML IVPB SCH (02:35)
[2017-07-21] MEDS: METOCLOPRAMIDE HCL INJECTION 10 MG/2 ML VIAL IVPB SCH ×4 (02:35→21:28)
[2017-07-21] MEDS: POTASSIUM CHLORIDE 40 MEQ in AMINO ACIDS 4.25%/D5W 1,000 ML IVPB SCH ×2 (04:19→16:48)
[2017-07-21] MEDS: ALBUTEROL SO4 2.5/IPRATROPIUM 0.5 INH SOL 3 ML VIAL.NEB. NEB SCH ×4 (06:23→18:04)
[2017-07-21] MEDS: HEPARIN NA (PORCINE) 5,000 UNITS/ML 1ML VIAL SQ SCH ×3 (06:55→21:28)
[2017-07-21] MEDS: PHENobarbital SODIUM 65 MG/1 ML VIAL IVPB SCH ×2 (06:56→21:28)
[2017-07-21] MEDS: INSULIN SLIDING SCALE (NOVOLOG) 1 VIAL SQ SCH (07:13)
[2017-07-21 08:10] LABS: ALLENS TEST POSITIVE; ART PUNCT SITE LEFT RADIAL; ARTERIAL BLD GAS O2 SATURATION 98.2 % (90-98.9); ARTERIAL BLOOD GAS BASE EXCESS -6.2 meq/l (-2-2); ARTERIAL BLOOD GAS HCO3 18.1 meq/L (22-26); ARTERIAL BLOOD GAS pH 7.35 (7.35-7.45); LPM/O2% 100%; PT. ON O2? YES; TYPE OF O2 NON REBREATHER
[2017-07-21 08:55] LABS: BASOPHIL 0.2 % (0-2.0); EOSINOPHIL 0.5 % (0-4.5); MCH 29.2 pg (25.7-33.7); MCHC 32.6 g/dl (32.0-35.9); MEAN CELL VOLUME 89.6 fl (80-96); MEAN PLT VOLUME 8.6 fl (7.5-11.1); NEUTROPHILS 88.5 % (42.8-82.8); PLATELET COUNT 282 K/MM3 (134-434); RDW 16.3 % (11.9-15.9); WHITE BLOOD COUNT 18.7 K/mm3 (4.0-10.0)
[2017-07-21 09:32] LABS: ALBUMIN 1.7 g/dl (3.4-5.0); ANION GAP 12 (8-16); CALCIUM 7.6 mg/dL (8.5-10.1); CO2 21 mmol/L (21-32); GLUCOSE,RANDOM 88 mg/dL (74-106); MAGNESIUM 1.5 mg/dL (1.8-2.4)
[2017-07-21 09:35] LABS: ALK PHOS 94 U/L (45-117); BILIRUBIN,TOTAL 0.5 mg/dL (0.2-1.0); PHOSPHOROUS 3.1 mg/dL (2.5-4.9); SGOT/AST 16 U/L (15-37); SGPT/ALT 8 U/L (12-78); TOT PROT 6.4 g/dl (6.4-8.2)
--- NOTE | 2017-07-21 09:44 | PN ---
Progress Note (short form) - Note Progress Note: nonverbal tachypneic on NRB mask just returned from ct scan - results pending nurse reports episode diarrhea intermittent fevers still with NGT Vital Signs Period Temp Pulse Resp BP Sys/Lyons Pulse Ox Last 24 Hr 98.7 F-101.9 F 55-120 20-38 114-156/56-85 97-100 macrocephaly RIGHT IJ cvp cor-rrr tachycardic lungs decreased bs at bases abd firm distended +BS ext no edema CBC, BMP 07/21/17 07:00 07/21/17 07:00 Microbiology 07/16/17 17:00 Blood - Peripheral Venous Blood Culture - Preliminary NO GROWTH OBTAINED AFTER 96 HOURS, INCUBATION TO CONTINUE FOR 1 DAYS. 07/16/17 17:00 Blood - Peripheral Venous Blood Culture - Preliminary NO GROWTH OBTAINED AFTER 96 HOURS, INCUBATION TO CONTINUE FOR 1 DAYS. 07/16/17 20:00 Urine - Urine Schwartz Urine Culture - Final NO GROWTH OBTAINED 07/13/17 09:25 Blood - Peripheral Venous Blood Culture - Final NO GROWTH AFTER 5 DAYS INCUBATION 07/13/17 09:25 Blood - Peripheral Venous Blood Culture - Final NO GROWTH AFTER 5 DAYS INCUBATION 07/11/17 20:30 Blood - Peripheral Venous Blood Culture - Final Staphylococcus Auricularis 07/14/17 10:00 Urine - Urine Schwartz Urine Culture - Final NO GROWTH OBTAINED 07/12/17 13:30 Urine - Urine Schwartz Urine Culture - Final NO GROWTH OBTAINED 07/11/17 20:30 Blood - Peripheral Venous Blood Culture - Preliminary Staphylococcus Coagulase Neg 07/11/17 20:48 Urine - Urine Clean Catch Urine Culture - Final Contaminated: Please Repeat a/p intermittent fevers worsening respiratory status pneumonia coag negative staph bacteremia small bowel obstruction/ileus- surgery following leukocytosis seizure disorder f/u ct scans repeat blood cultures sent stool cdiff ua and urine culture empiric change to cefepime/flagyl/vanco vancomycin trough today hydrocephalus/vp scientific shunt/seizure disorder overall prognosis is guarded for transfer to ICU
[2017-07-21] MEDS ORDERED: CEFEPIME HCL 2 GM VIAL (RESTRICTED TO ID) IVPB SCH (10:00)
--- NOTE | 2017-07-21 11:30 | PN ---
Teaching Attending Note Name of Resident: Tomas Reddy ATTENDING PHYSICIAN STATEMENT I saw and evaluated the patient. I reviewed the resident's note and discussed the case with the resident. I agree with the resident's findings and plan as documented. SUBJECTIVE: Pt seen and examined in the ICU. Transferred for worsening shortness of breath, impending respiratory failure. OBJECTIVE: Last Vital Signs Temp Pulse Resp BP Pulse Ox 101.4 F H 130 H 40 H 128/70 100 07/21/17 11:00 07/21/17 11:00 07/21/17 11:00 07/21/17 11:00 07/21/17 11:00 Intake & Output 07/18/17 07/19/17 07/20/17 07/21/17 23:59 23:59 23:59 23:59 Intake Total 3424 2908 3274 1624 Output Total 3150 2600 1450 1500 Balance 723 293 9725 124 Weight 190 lb 9.6 oz 186 lb 11.2 oz Gen: tachycardic, regular Heart: tachycardic, regular Lung: scattered rhonchi Abd: softly distended Ext: contracted CBC, BMP 07/21/17 07:00 07/21/17 07:00 Active Medications Acetaminophen (Ofirmev Injection -) 1,000 mg IVPB Q8H [facility] Last Admin: 07/20/17 23:55 Dose: 1,000 mg Albuterol/Ipratropium (Duoneb -) 1 amp NEB QIDR ELISHA Last Admin: 07/21/17 11:11 Dose: 1 amp Heparin Sodium (Porcine) (Heparin -) 5,000 unit SQ TID ELISHA Last Admin: 07/21/17 06:55 Dose: 5,000 unit Pantoprazole Sodium 40 mg/ (Sodium Chloride) 100 mls @ 200 mls/hr IVPB DAILY ELISHA Last Admin: 07/20/17 11:09 Dose: 200 mls/hr Vancomycin HCl 1,250 mg/ (Dextrose) 250 mls @ 125 mls/hr IVPB BID ELISHA PRN Reason: Protocol Last Admin: 07/20/17 22:25 Dose: 125 mls/hr Potassium Chloride 40 meq/ (Amino Acids) 1,020 mls @ 84 mls/hr IVPB Q12H ELISHA Last Admin: 07/21/17 04:19 Dose: 84 mls/hr Metronidazole (Flagyl 500mg Premixed Ivpb -) 100 mls @ 100 mls/hr IVPB Q8H-IV ELISHA Cefepime HCl 2 gm/ Dextrose 100 mls @ 200 mls/hr IVPB Q8H-IV ELISHA Insulin Aspart (Novolog Vial Sliding Scale -) 1 vial SQ AM [facility] PRN Reason: Protocol Last Admin: 07/21/17 07:13 Dose: Not Given Metoclopramide HCl (Reglan Injection -) 10 mg IVPB Q6H [facility] Last Admin: 07/21/17 02:35 Dose: 10 mg Multivitamins/Minerals (Infuvite Adult -) 10 ml IV DAILY [facility] Last Admin: 07/20/17 17:07 Dose: 10 ml Phenobarbital (Phenobarbital Injection -) 150 mg IVPB HS [facility] Last Admin: 07/20/17 22:20 Dose: 150 mg Phenobarbital (Phenobarbital Injection -) 97 mg IVPB AM [facility] Last Admin: 07/21/17 06:56 Dose: 97 mg ASSESSMENT AND PLAN: Acute Respiratory Failure Likely Aspiration Pneumonia Small Bowel Obstruction Staph Bacteremia UTI Sepsis Lactic Acidosis resolved Cerebral Palsy Macrocephaly/Hydrocephalus s/p TELEHEALTH COORDINATOR shunt - will likely need to be intubated - antibiotics per ID - f/u repeat cultures - NGT to ILWS - IVF - monitor lytes - aspiration precautions - DVT prophylaxis - continue ICU monitoring critical care time spent in reviewing chart, evaluating patient and formulating plan 35 min
[2017-07-21] MEDS: PANTOPRAZOLE SODIUM 40 MG in SODIUM CHLORIDE 100 ML IVPB SCH (12:03)
[2017-07-21] MEDS: METRONIDAZOLE 500 MG PREMIXED 100 ML IVPB SCH ×2 (12:03→18:25)
[2017-07-21] MEDS ORDERED: PROPOFOL 100 ML ONE (12:10)
[2017-07-21] MEDS ORDERED: PROPOFOL 20 ML ONE ×2 (12:11→12:40)
[2017-07-21] MEDS ORDERED: MIDAZOLAM HCL 5 MG/1 ML Single Dose Vial ONE (12:40)
[2017-07-21] MEDS ORDERED: ROCURONIUM BROMIDE 50 MG/5 ML VIAL IVPUSH ONE (13:14)
[2017-07-21] MEDS ORDERED: PROPOFOL 200 MG/20 ML VIAL IVPUSH ONE (13:15)
[2017-07-21] MEDS ORDERED: MIDAZOLAM HCL 5 MG/1 ML Single Dose Vial IVPUSH ONE (13:15)
--- NOTE | 2017-07-21 13:15 | PROC ---
Procedure Note Procedure: Anesthesia office communication professor Called to intubate patient with difficult airway. ICU attending in the room. using glyde scope #7 ETT passed without trauma +ETCO2 Equal breath sounds Tube taped at 22cm Care left to the team Garcia Meier MD
[2017-07-21] MEDS: PROPOFOL 100 ML IVPB SCH (13:20)
[2017-07-21] MEDS: CEFEPIME 2 GM in DEXTROSE 5%-WATER 100 ML IVPB SCH ×2 (13:25→18:25)
--- NOTE | 2017-07-21 13:26 | PN ---
Physical Exam: SUBJECTIVE: Pt seen and examined in the ICU. Transferred for worsening shortness of breath, impending respiratory failure. OBJECTIVE: Vital Signs Period Temp Pulse Resp BP Sys/Lyons Pulse Ox Last 24 Hr 98.7 F-101.9 F 55-143 20-40 128-156/56-85 97-100 HEENT: macrocephaly, RIGHT IJ CARDIO:rrr tachycardic RESP: lungs decreased bs at bases ABD: firm distended +BS ext no edema Laboratory Results - last 24 hr 07/20/17 07/20/17 07/21/17 16:31 18:02 07:00 WBC 18.7 H D RBC 3.42 L Hgb 10.0 L Hct 30.7 L MCV 89.6 MCH 29.2 MCHC 32.6 RDW 16.3 H Plt Count 282 D MPV 8.6 Neutrophils % 88.5 H Lymphocytes % 4.0 L D Monocytes % 6.8 Eosinophils % 0.5 Basophils % 0.2 Puncture Site ABG pH ABG pCO2 at Pt Temp ABG pO2 at Pt Temp ABG HCO3 ABG O2 Sat (Measured) ABG O2 Content ABG Base Excess Bernabe Test O2 Delivery Device Oxygen Flow Rate PEEP Sodium Potassium Chloride Carbon Dioxide Anion Gap BUN Creatinine Creat Clearance w eGFR POC Glucometer 110 Random Glucose Lactic Acid 1.3 Calcium Phosphorus Magnesium Total Bilirubin AST ALT Alkaline Phosphatase Total Protein Albumin Vancomycin Pre-Dose 07/21/17 07/21/17 07/21/17 07:00 07:00 07:07 WBC RBC Hgb Hct MCV MCH MCHC RDW Plt Count MPV Neutrophils % Lymphocytes % Monocytes % Eosinophils % Basophils % Puncture Site ABG pH ABG pCO2 at Pt Temp ABG pO2 at Pt Temp ABG HCO3 ABG O2 Sat (Measured) ABG O2 Content ABG Base Excess Bernabe Test O2 Delivery Device Oxygen Flow Rate PEEP Sodium 144 Potassium 4.5 D Chloride 111 H Carbon Dioxide 21 Anion Gap 12 BUN 26 H D Creatinine 1.0 D Creat Clearance w eGFR > 60 POC Glucometer 95 Random Glucose 88 Lactic Acid 0.7 Calcium 7.6 L Phosphorus 3.1 D Magnesium 1.5 L Total Bilirubin 0.5 D AST 16 D ALT 8 L Alkaline Phosphatase 94 Total Protein 6.4 Albumin 1.7 L Vancomycin Pre-Dose 07/21/17 07/21/17 07:50 11:00 WBC RBC Hgb Hct MCV MCH MCHC RDW Plt Count MPV Neutrophils % Lymphocytes % Monocytes % Eosinophils % Basophils % Puncture Site Left radial ABG pH 7.35 ABG pCO2 at Pt Temp 33.5 L ABG pO2 at Pt Temp 103.0 H ABG HCO3 18.1 L ABG O2 Sat (Measured) 98.2 ABG O2 Content 15.9 ABG Base Excess -6.2 L Bernabe Test Positive O2 Delivery Device Non rebreather Oxygen Flow Rate 100% PEEP 0.0 Sodium Potassium Chloride Carbon Dioxide Anion Gap BUN Creatinine Creat Clearance w eGFR POC Glucometer Random Glucose Lactic Acid Calcium Phosphorus Magnesium Total Bilirubin AST ALT Alkaline Phosphatase Total Protein Albumin Vancomycin Pre-Dose 58.27 H* D Active Medications Generic Name Dose Route Start Last Admin Trade Name Freq PRN Reason Stop Dose Admin Acetaminophen 1,000 mg 07/20/17 16:45 07/20/17 23:55 Ofirmev Injection - IVPB 1,000 mg Q8H ELISHA Administration Albuterol/Ipratropium 1 amp 07/21/17 08:00 07/21/17 11:11 Duoneb - NEB 1 amp QIDR ELISHA Administration Heparin Sodium (Porcine) 5,000 unit 07/15/17 14:00 07/21/17 06:55 Heparin - SQ 5,000 unit TID ELISHA Administration Pantoprazole Sodium 40 mg/ 100 mls @ 200 mls/hr 07/16/17 10:00 07/21/17 12:03 Sodium Chloride IVPB 200 mls/hr DAILY ELISHA Administration Vancomycin HCl 1,250 mg/ 250 mls @ 125 mls/hr 07/16/17 10:00 07/20/17 22:25 Dextrose IVPB 125 mls/hr BID ELISHA Administration Protocol Potassium Chloride 40 meq/ 1,020 mls @ 84 mls/hr 07/16/17 16:15 07/21/17 04:19 Amino Acids IVPB 84 mls/hr Q12H ELISHA Administration Metronidazole 100 mls @ 100 mls/hr 07/21/17 10:00 07/21/17 12:03 Flagyl 500mg Premixed Ivpb - IVPB 100 mls/hr Q8H-IV [facility]ISHA Administration Cefepime HCl 2 gm/ Dextrose 100 mls @ 200 mls/hr 07/21/17 10:15 IVPB Q8H-IV ELISHA Propofol 100 mls @ 2.541 mls/hr 07/21/17 13:30 Diprivan - IVPB TITR ELISHA Protocol 5 MCG/KG/MIN Insulin Aspart 1 vial 07/17/17 07:00 07/21/17 07:13 Novolog Vial Sliding Scale - SQ Not Given AM ELISHA Protocol Metoclopramide HCl 10 mg 07/15/17 15:30 07/21/17 12:04 Reglan Injection - IVPB 10 mg Q6H ELISHA Administration Midazolam HCl 5 mg 07/21/17 13:15 Versed - IVPUSH 07/21/17 13:16 ONCE ONE Multivitamins/Minerals 10 ml 07/17/17 10:00 07/20/17 17:07 Infuvite Adult - IV 10 ml DAILY ELISHA Administration Phenobarbital 150 mg 07/15/17 22:00 07/20/17 22:20 Phenobarbital Injection - IVPB 150 mg HS ELISHA Administration Phenobarbital 97 mg 07/16/17 07:00 07/21/17 06:56 Phenobarbital Injection - IVPB 97 mg AM ELISHA Administration Propofol 55 mcg 07/21/17 13:15 Diprivan - IVPUSH 07/21/17 13:16 ONCE ONE Rocuronium [place] 51 mg 07/21/17 13:14 Zemuron - IVPUSH 07/21/17 13:15 ONCE ONE ASSESSMENT/PLAN: 21 year-old male with a H signficant for profound developmental delays, spastic cerebral palsy, cortical blindness, seizure disorder, club feet, meningiomyelocele at , spinal defect, and PIT STEWARD shunt. Admitted for bilateral pneumonia and SBO. Resp: Patient intubated for respiratory distress ID: per ID Cefe[im 2g and Flagyl 500mg - f/u repeat cultures - NGT to ILWS - IVF - monitor lytes - aspiration precautions - DVT prophylaxis - continue ICU monitoring Visit type - Emergency Visit Emergency Visit: No - New Patient This patient is new to me today: Yes Date on this admission: 07/21/17 - Critical Care Critical Care patient: Yes Total Critical Care Time (in minutes): 45 Critical Care Statement: The care of this patient involved high complexity decision making to prevent further life threatening deterioration of the patient 's condition and/or to evaluate & treat vital organ system(s) failure or risk of failure.
[2017-07-21] MEDS: VANCOMYCIN 1,250 MG in DEXTROSE 5%-WATER - 250 ML IVPB SCH (13:30)
[2017-07-21 14:10] LABS: ARTERIAL BLD GAS O2 SATURATION 97.8 % (90-98.9); ARTERIAL BLOOD GAS BASE EXCESS -6.5 meq/l (-2-2); ARTERIAL BLOOD GAS HCO3 17.3 meq/L (22-26); ARTERIAL BLOOD GAS pH 7.37 (7.35-7.45)
[2017-07-21 14:11] LABS: ALLENS TEST POSITIVE; ART PUNCT SITE LEFT RADIAL; LPM/O2% 60%; MECH. VENT. Y; PT. ON O2? YES; TYPE OF O2 VENT; VENT RATE 14; VT/PRESS 350
[2017-07-21] MEDS: POLYETHYLENE GLYCOL 3350 119 GM BTL NGT SCH ×2 (14:16→21:28)
[2017-07-21] MEDS: ACETAMINOPHEN 1000 MG/100 ML VIAL (NON FORMULARY) IVPB SCH ×2 (14:58→16:46)
--- NOTE | 2017-07-21 16:02 | PN ---
Physical Exam: SUBJECTIVE: Patient seen and examined at bedside in ICU. OBJECTIVE: Vital Signs Period Temp Pulse Resp BP Sys/Lyons Pulse Ox Last 24 Hr 98.7 F-101.4 F 55-146 18-42 109-156/56-88 97-100 GENERAL/NEURO: Intubated, sedated. HEAD: Hydrocephalic. LUNGS: Rhonchorous breath sounds throughout; tachypnic HEART: Regular rate and rhythm, S1, S2 without murmur, rub or gallop. ABDOMEN: Mildly distended EXTREMITIES: shortened lower extremities, club feet Laboratory Results - last 24 hr 07/20/17 07/20/17 07/21/17 16:31 18:02 07:00 WBC 18.7 H D RBC 3.42 L Hgb 10.0 L Hct 30.7 L MCV 89.6 MCH 29.2 MCHC 32.6 RDW 16.3 H Plt Count 282 D MPV 8.6 Neutrophils % 88.5 H Lymphocytes % 4.0 L D Monocytes % 6.8 Eosinophils % 0.5 Basophils % 0.2 Puncture Site ABG pH ABG pCO2 at Pt Temp ABG pO2 at Pt Temp ABG HCO3 ABG O2 Sat (Measured) ABG O2 Content ABG Base Excess Bernabe Test O2 Delivery Device Oxygen Flow Rate Vent Mode Vent Rate Mechanical Rate PEEP Pressure Support Vent Sodium Potassium Chloride Carbon Dioxide Anion Gap BUN Creatinine Creat Clearance w eGFR POC Glucometer 110 Random Glucose Lactic Acid 1.3 Calcium Phosphorus Magnesium Total Bilirubin AST ALT Alkaline Phosphatase Total Protein Albumin Vancomycin Pre-Dose 07/21/17 07/21/17 07/21/17 07:00 07:00 07:07 WBC RBC Hgb Hct MCV MCH MCHC RDW Plt Count MPV Neutrophils % Lymphocytes % Monocytes % Eosinophils % Basophils % Puncture Site ABG pH ABG pCO2 at Pt Temp ABG pO2 at Pt Temp ABG HCO3 ABG O2 Sat (Measured) ABG O2 Content ABG Base Excess Bernabe Test O2 Delivery Device Oxygen Flow Rate Vent Mode Vent Rate Mechanical Rate PEEP Pressure Support Vent Sodium 144 Potassium 4.5 D Chloride 111 H Carbon Dioxide 21 Anion Gap 12 BUN 26 H D Creatinine 1.0 D Creat Clearance w eGFR > 60 POC Glucometer 95 Random Glucose 88 Lactic Acid 0.7 Calcium 7.6 L Phosphorus 3.1 D Magnesium 1.5 L Total Bilirubin 0.5 D AST 16 D ALT 8 L Alkaline Phosphatase 94 Total Protein 6.4 Albumin 1.7 L Vancomycin Pre-Dose 07/21/17 07/21/17 07/21/17 07:50 11:00 14:08 WBC RBC Hgb Hct MCV MCH MCHC RDW Plt Count MPV Neutrophils % Lymphocytes % Monocytes % Eosinophils % Basophils % Puncture Site Left radial Left radial ABG pH 7.35 7.37 ABG pCO2 at Pt Temp 33.5 L 30.6 L ABG pO2 at Pt Temp 103.0 H 91.0 ABG HCO3 18.1 L 17.3 L ABG O2 Sat (Measured) 98.2 97.8 ABG O2 Content 15.9 13.5 L ABG Base Excess -6.2 L -6.5 L Bernabe Test Positive Positive O2 Delivery Device Non rebreather Vent Oxygen Flow Rate 100% 60% Vent Mode A/c Vent Rate 14 Mechanical Rate Y PEEP 0.0 5.0 Pressure Support Vent 350 Sodium Potassium Chloride Carbon Dioxide Anion Gap BUN Creatinine Creat Clearance w eGFR POC Glucometer Random Glucose Lactic Acid Calcium Phosphorus Magnesium Total Bilirubin AST ALT Alkaline Phosphatase Total Protein Albumin Vancomycin Pre-Dose 58.27 H* D Active Medications Generic Name Dose Route Start Last Admin Trade Name Freq PRN Reason Stop Dose Admin Acetaminophen 1,000 mg 07/20/17 16:45 07/21/17 14:58 Ofirmev Injection - IVPB 1,000 mg Q8H [facility] Administration Albuterol/Ipratropium 1 amp 07/21/17 08:00 07/21/17 11:11 Duoneb - NEB 1 amp QIDR ELISHA Administration Heparin Sodium (Porcine) 5,000 unit 07/15/17 14:00 07/21/17 13:27 Heparin - SQ 5,000 unit TID ELISHA Administration Pantoprazole Sodium 40 mg/ 100 mls @ 200 mls/hr 07/16/17 10:00 07/21/17 12:03 Sodium Chloride IVPB 200 mls/hr DAILY [facility] Administration Vancomycin HCl 1,250 mg/ 250 mls @ 125 mls/hr 07/16/17 10:00 07/21/17 13:30 Dextrose IVPB Not Given BID ELISHA Protocol Potassium Chloride 40 meq/ 1,020 mls @ 84 mls/hr 07/16/17 16:15 07/21/17 04:19 Amino Acids IVPB 84 mls/hr Q12H [facility] Administration Metronidazole 100 mls @ 100 mls/hr 07/21/17 10:00 07/21/17 12:03 Flagyl 500mg Premixed Ivpb - IVPB 100 mls/hr Q8H-IV [facility] Administration Cefepime HCl 2 gm/ Dextrose 100 mls @ 200 mls/hr 07/21/17 10:15 07/21/17 13:25 IVPB 200 mls/hr Q8H-IV [facility] Administration Propofol 100 mls @ 2.541 mls/hr 07/21/17 13:30 07/21/17 13:35 Diprivan - IVPB 10 mcg/kg/min TITR [facility] Titration Protocol 5 MCG/KG/MIN Insulin Aspart 1 vial 07/17/17 07:00 07/21/17 07:13 Novolog Vial Sliding Scale - SQ Not Given AM [facility] Protocol Metoclopramide HCl 10 mg 07/15/17 15:30 07/21/17 15:16 Reglan Injection - IVPB 10 mg Q6H [facility] Administration Multivitamins/Minerals 10 ml 07/17/17 10:00 07/20/17 17:07 Infuvite Adult - IV 10 ml DAILY [facility] Administration Phenobarbital 150 mg 07/15/17 22:00 07/20/17 22:20 Phenobarbital Injection - IVPB 150 mg HS [facility] Administration Phenobarbital 97 mg 07/16/17 07:00 07/21/17 06:56 Phenobarbital Injection - IVPB 97 mg AM [facility] Administration Polyethylene Glycol 17 gm 07/21/17 13:45 07/21/17 14:16 Miralax (For Daily Use) - NGT 17 grams BID ELISHA Administration ASSESSMENT/PLAN 21 year-old male with a [employer] signficant for profound developmental delays, spastic cerebral palsy, cortical blindness, seizure disorder, club feet, meningiomyelocele at , spinal defect, and PASTEURIZING SUPERVISOR shunt. Admitted for bilateral pneumonia and SBO. Severe Sepsis Bilateral pneumonia Staph auricularis bacteremia r/o abdominal infection r/o PASTEURIZING SUPERVISOR shunt infection --patient has known bilateral pneumonia and S.auricularis bacteremia, treated since 07/16, but continues to spike fevers Tm 101.1, tachycardic, and sharp rise in WBC 18.7k today --CTAP imaging today shows increased loculated intraperitoneal fluid, suspicious for abdominal infection secondary to PASTEURIZING SUPERVISOR shunt CSF drainage; neurosurgeon Dr. Hammer consulted and this evening withdrew CSF fluid from shunt, cloudy yellow; fluid sent for gram stain, culture, cell count, glucose, protein; --earlier today ID started cefepime and metronidazole, continued vanc, and d/ c'd Zosyn; per Dr. Hampton, continue these abx tonight, check vanc level in am Hypoxic respiratory failure --intubated today Bilateral hydroureternephrosis --new finding on CT today, may be secondary to intraperitoneal fluid collection --renal function stable, making good urine --IR consult for possible aspiration --discussed with Dr. Silas WALKER, improved Ileus --continue to decompress via NGT and bowel regimen Seizure disorder --no seizure activity --continue phenobarbital Hypernatremia --resolved Hypokalemia --resolved Hypophosphatemia --resolved Functional quadripalegic --profound developmental delays, spastic limbs, cortical blindness, club feet , contracted extremities --fully dependent for all ADLs F/E/N Fluids/Nutrition: Clinimix+40K @ 83mL/hr Electrolytes: replete as indicated DVT prophylaxis: subq heparin Dispo: continues to require ICU care. Full Code. Visit type - Emergency Visit Emergency Visit: Yes ED Registration Date: 07/11/17 Care time: The patient presented to the Emergency Department on the above date and was hospitalized for further evaluation of their emergent condition. - New Patient This patient is new to me today: No - Critical Care Critical Care patient: Yes Total Critical Care Time (in minutes): 120 Critical Care Statement: The care of this patient involved high complexity decision making to prevent further life threatening deterioration of the patient 's condition and/or to evaluate & treat vital organ system(s) failure or risk of failure.
[2017-07-21] MEDS ORDERED: PT OWN MED DRAWER 7, Y5N ONE (16:40)
[2017-07-21] MEDS: MULTIVIT INJ. ADULT COMBO WITH VIT K 1 COMBO 10 ML VIAL IV SCH (16:47)
[2017-07-21 17:42] LABS: URINE APPEARANCE CLEAR; URINE BILIRUBIN NEGATIVE (NEGATIVE); URINE BLOOD 2+ (NEGATIVE); URINE COLOR STRAW; URINE GLUCOSE (UA) NEGATIVE (NEGATIVE); URINE KETONE NEGATIVE (NEGATIVE); URINE LEUK ESTERASE NEGATIVE (NEGATIVE); URINE NITRITE NEGATIVE (NEGATIVE); URINE PROTEIN NEGATIVE (NEGATIVE); URINE UROBILINOGEN NEGATIVE mg/dL (0.2-1.0)
[2017-07-21 17:46] LABS: URINE BACTERIA RARE /hpf (NONE SEEN); URINE MUCUS RARE; URINE RBC 7 /hpf (0-3); URINE WBC 3 /hpf (3-5)
[2017-07-21 21:16] LABS: CSF COLOR XANTHOCHROMIC
[2017-07-21 21:17] LABS: CSF APPEARANCE TURBID
[2017-07-21 21:21] LABS: CSF RBC 100
[2017-07-21 21:37] LABS: GLUCOSE,CSF 2 mg/dL (50-80)
[2017-07-21 21:47] LABS: CSF MONOCYTES 3 %
[2017-07-21 21:48] LABS: CSF NEUTROPHILS 81 %
--- NOTE | 2017-07-21 21:57 | PN ---
Progress Note (short form) - Note Progress Note: Asked to see this patient who is a 22 year old male with a history of cognitive impairment and recent fevers of unknown etiology. He has been treated with broad spectrum antibiotics, however, is not responding and has continued fevers and WBC elevated to 18,000. Patient has a RN UNIT MANAGER shunt and the distal terminus is associated with a loculated fluid collection in the peritoneum. Consideration for shunt malfunction/infection/meningitis prompted Neurosurgery consultation. 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 Patient has a RN UNIT MANAGER shunt associated with a Right frontal guero hole. Patient is minimally responsive and currently is intubated and sedated with Propofol. Although his incisions are well healed and there is no erythema/tenderness over the shunt valve and tubing, the abdomen is tense and he has some guarding. CT Abdomen and Pelvis reviewed and fluid collection which developed near the distal terminus of the shunt was noted. The valve does not depress easily. After informed consent from patient's mother, a shunt tap was performed in the usual sterile fashion. 5 cc of turbid, xanthochromic CSF was withdrawn and the patient was noted to open his eyes soon afterwards. The WBC of the CSF was 12,000 (differential not yet available) and the Protein/Glucose also strongly suggested CSF infection. Will review Gram's stain and culture results and discuss antibiotic regimen changes as well as consideration for possible externalization of the distal tubing if there is no response to an appropriate antibiotic regimen. I am reluctant to remove the shunt without clear indication since replacement may be exceptionally difficult given his body habitus and neck anatomy.
[2017-07-21] MEDS: MEROPENEM 2 GM in DEXTROSE 5%-WATER - 100 ML IVPB SCH (22:00)
[2017-07-22] MEDS: ALBUTEROL SO4 2.5/IPRATROPIUM 0.5 INH SOL 3 ML VIAL.NEB. NEB SCH ×4 (00:05→19:39)
[2017-07-22] MEDS: ACETAMINOPHEN 1000 MG/100 ML VIAL (NON FORMULARY) IVPB SCH ×3 (01:04→18:05)
[2017-07-22] MEDS: METRONIDAZOLE 500 MG PREMIXED 100 ML IVPB SCH ×3 (01:04→17:57)
[2017-07-22] MEDS: METOCLOPRAMIDE HCL INJECTION 10 MG/2 ML VIAL IVPB SCH ×4 (03:30→21:30)
[2017-07-22] MEDS: POTASSIUM CHLORIDE 40 MEQ in AMINO ACIDS 4.25%/D5W 1,000 ML IVPB SCH ×2 (04:15→17:57)
[2017-07-22 06:12] LABS: MCH 29.1 pg (25.7-33.7); MCHC 32.8 g/dl (32.0-35.9); MEAN CELL VOLUME 88.6 fl (80-96); MEAN PLT VOLUME 8.5 fl (7.5-11.1); PLATELET COUNT 348 K/MM3 (134-434); RDW 15.8 % (11.9-15.9); WHITE BLOOD COUNT 19.1 K/mm3 (4.0-10.0)
[2017-07-22] MEDS: MEROPENEM 2 GM in DEXTROSE 5%-WATER - 100 ML IVPB SCH ×3 (06:17→21:47)
[2017-07-22] MEDS: INSULIN SLIDING SCALE (NOVOLOG) 1 VIAL SQ SCH (06:17)
[2017-07-22] MEDS: HEPARIN NA (PORCINE) 5,000 UNITS/ML 1ML VIAL SQ SCH ×3 (06:21→21:29)
[2017-07-22] MEDS: PHENobarbital SODIUM 65 MG/1 ML VIAL IVPB SCH ×2 (06:22→21:30)
--- NOTE | 2017-07-22 08:01 | PN ---
Physical Exam: SUBJECTIVE: Patient seen and examined. Day 2 of intubation. Neurosurgery consulted: CSF infection, patient to tbe operated today + antibiotics. OBJECTIVE: Vital Signs Period Temp Pulse Resp BP Sys/Lyons Pulse Ox Last 24 Hr 97.7 F-101.4 F 97-146 16-42 109-146/54-88 97-100 HEENT: macrocephaly, RIGHT IJ CARDIO:rrr tachycardic RESP: lungs decreased bs at bases ABD: firm distended +BS ext no edema Laboratory Results - last 24 hr 07/21/17 07/21/17 07/21/17 07:00 07:00 07:00 WBC 18.7 H D RBC 3.42 L Hgb 10.0 L Hct 30.7 L MCV 89.6 MCH 29.2 MCHC 32.6 RDW 16.3 H Plt Count 282 D MPV 8.6 Neutrophils % 88.5 H Lymphocytes % 4.0 L D Monocytes % 6.8 Eosinophils % 0.5 Basophils % 0.2 Puncture Site ABG pH ABG pCO2 at Pt Temp ABG pO2 at Pt Temp ABG HCO3 ABG O2 Sat (Measured) ABG O2 Content ABG Base Excess Bernabe Test O2 Delivery Device Oxygen Flow Rate Vent Mode Vent Rate Mechanical Rate PEEP Pressure Support Vent Sodium 144 Potassium 4.5 D Chloride 111 H Carbon Dioxide 21 Anion Gap 12 BUN 26 H D Creatinine 1.0 D Creat Clearance w eGFR > 60 Random Glucose 88 Lactic Acid 0.7 Calcium 7.6 L Phosphorus 3.1 D Magnesium 1.5 L Total Bilirubin 0.5 D AST 16 D ALT 8 L Alkaline Phosphatase 94 Total Protein 6.4 Albumin 1.7 L Urine Color Urine Appearance Urine pH Ur Specific [place] Urine Protein Urine Glucose (UA) Urine Ketones Urine Blood Urine Nitrite Urine Bilirubin Urine Urobilinogen Ur Leukocyte Esterase Urine RBC Urine WBC Ur Epithelial Cells Urine Bacteria Urine Mucus CSF Appearance CSF Color CSF WBC CSF RBC CSF Neutrophils CSF Lymphocytes CSF Monocytes CSF Glucose CSF Total Protein Random Vancomycin Vancomycin Pre-Dose 07/21/17 07/21/17 07/21/17 07:50 11:00 14:08 WBC RBC Hgb Hct MCV MCH MCHC RDW Plt Count MPV Neutrophils % Lymphocytes % Monocytes % Eosinophils % Basophils % Puncture Site Left radial Left radial ABG pH 7.35 7.37 ABG pCO2 at Pt Temp 33.5 L 30.6 L ABG pO2 at Pt Temp 103.0 H 91.0 ABG HCO3 18.1 L 17.3 L ABG O2 Sat (Measured) 98.2 97.8 ABG O2 Content 15.9 13.5 L ABG Base Excess -6.2 L -6.5 L Bernabe Test Positive Positive O2 Delivery Device Non rebreather Vent Oxygen Flow Rate 100% 60% Vent Mode A/c Vent Rate 14 Mechanical Rate Y PEEP 0.0 5.0 Pressure Support Vent 350 Sodium Potassium Chloride Carbon Dioxide Anion Gap BUN Creatinine Creat Clearance w eGFR Random Glucose Lactic Acid Calcium Phosphorus Magnesium Total Bilirubin AST ALT Alkaline Phosphatase Total Protein Albumin Urine Color Urine Appearance Urine pH Ur Specific [place] Urine Protein Urine Glucose (UA) Urine Ketones Urine Blood Urine Nitrite Urine Bilirubin Urine Urobilinogen Ur Leukocyte Esterase Urine RBC Urine WBC Ur Epithelial Cells Urine Bacteria Urine Mucus CSF Appearance CSF Color CSF WBC CSF RBC CSF Neutrophils CSF Lymphocytes CSF Monocytes CSF Glucose CSF Total Protein Random Vancomycin Vancomycin Pre-Dose 58.27 H* D 07/21/17 07/21/17 07/21/17 17:15 19:00 19:00 WBC RBC Hgb Hct MCV MCH MCHC RDW Plt Count MPV Neutrophils % Lymphocytes % Monocytes % Eosinophils % Basophils % Puncture Site ABG pH ABG pCO2 at Pt Temp ABG pO2 at Pt Temp ABG HCO3 ABG O2 Sat (Measured) ABG O2 Content ABG Base Excess Bernabe Test O2 Delivery Device Oxygen Flow Rate Vent Mode Vent Rate Mechanical Rate PEEP Pressure Support Vent Sodium Potassium Chloride Carbon Dioxide Anion Gap BUN Creatinine Creat Clearance w eGFR Random Glucose Lactic Acid Calcium Phosphorus Magnesium Total Bilirubin AST ALT Alkaline Phosphatase Total Protein Albumin Urine Color Straw Urine Appearance Clear Urine pH 5.0 Ur Specific [place] 1.010 Urine Protein Negative Urine Glucose (UA) Negative Urine Ketones Negative Urine Blood 2+ H Urine Nitrite Negative Urine Bilirubin Negative Urine Urobilinogen Negative Ur Leukocyte Esterase Negative Urine RBC 7 Urine WBC 3 Ur Epithelial Cells Rare Urine Bacteria Rare Urine Mucus Rare CSF Appearance Turbid CSF Color Xanthochromic CSF WBC 80520 CSF RBC 100 CSF Neutrophils 81 CSF Lymphocytes 16 CSF Monocytes 3 CSF Glucose 2 L CSF Total Protein 1622 H Cancelled Random Vancomycin Vancomycin Pre-Dose 07/22/17 07/22/17 05:00 05:00 WBC 19.1 H RBC 3.13 L Hgb 9.1 L Hct 27.8 L MCV 88.6 MCH 29.1 MCHC 32.8 RDW 15.8 Plt Count 348 D MPV 8.5 Neutrophils % Lymphocytes % Monocytes % Eosinophils % Basophils % Puncture Site ABG pH ABG pCO2 at Pt Temp ABG pO2 at Pt Temp ABG HCO3 ABG O2 Sat (Measured) ABG O2 Content ABG Base Excess Bernabe Test O2 Delivery Device Oxygen Flow Rate Vent Mode Vent Rate Mechanical Rate PEEP Pressure Support Vent Sodium Potassium Chloride Carbon Dioxide Anion Gap BUN Creatinine Creat Clearance w eGFR Random Glucose Lactic Acid Calcium Phosphorus Magnesium Total Bilirubin AST ALT Alkaline Phosphatase Total Protein Albumin Urine Color Urine Appearance Urine pH Ur Specific [place] Urine Protein Urine Glucose (UA) Urine Ketones Urine Blood Urine Nitrite Urine Bilirubin Urine Urobilinogen Ur Leukocyte Esterase Urine RBC Urine WBC Ur Epithelial Cells Urine Bacteria Urine Mucus CSF Appearance CSF Color CSF WBC CSF RBC CSF Neutrophils CSF Lymphocytes CSF Monocytes CSF Glucose CSF Total Protein Random Vancomycin 35.055 Vancomycin Pre-Dose Active Medications Generic Name Dose Route Start Last Admin Trade Name Freq PRN Reason Stop Dose Admin Acetaminophen 1,000 mg 07/20/17 16:45 07/22/17 01:04 Ofirmev Injection - IVPB 1,000 mg Q8H ELISHA Administration Albuterol/Ipratropium 1 amp 07/21/17 08:00 07/22/17 06:00 Duoneb - NEB 1 amp QIDR ELISHA Administration Heparin Sodium (Porcine) 5,000 unit 07/15/17 14:00 07/22/17 06:21 Heparin - SQ 5,000 unit TID ELISHA Administration Pantoprazole Sodium 40 mg/ 100 mls @ 200 mls/hr 07/16/17 10:00 07/21/17 12:03 Sodium Chloride IVPB 200 mls/hr DAILY ELISHA Administration Potassium Chloride 40 meq/ 1,020 mls @ 84 mls/hr 07/16/17 16:15 07/22/17 04:15 Amino Acids IVPB 84 mls/hr Q12H ELISHA Administration Metronidazole 100 mls @ 100 mls/hr 07/21/17 10:00 07/22/17 01:04 Flagyl 500mg Premixed Ivpb - IVPB 100 mls/hr Q8H-IV ELISHA Administration Propofol 100 mls @ 2.541 mls/hr 07/21/17 13:30 07/21/17 13:35 Diprivan - IVPB 10 mcg/kg/min TITR ELISHA Titration Protocol 5 MCG/KG/MIN Meropenem 2 gm/ Dextrose 100 mls @ 100 mls/hr 07/21/17 22:00 07/22/17 06:17 IVPB 100 mls/hr Q8H ELISHA Administration Protocol Insulin Aspart 1 vial 07/17/17 07:00 07/22/17 06:17 Novolog Vial Sliding Scale - SQ Not Given AM ELISHA Protocol Metoclopramide HCl 10 mg 07/15/17 15:30 07/22/17 03:30 Reglan Injection - IVPB 10 mg Q6H ELISHA Administration Multivitamins/Minerals 10 ml 07/17/17 10:00 07/21/17 16:47 Infuvite Adult - IV 10 ml DAILY ELISHA Administration Phenobarbital 150 mg 07/15/17 22:00 07/21/17 21:28 Phenobarbital Injection - IVPB 150 mg HS ELISHA Administration Phenobarbital 97 mg 07/16/17 07:00 07/22/17 06:22 Phenobarbital Injection - IVPB 97 mg AM ELISHA Administration Polyethylene Glycol 17 gm 07/21/17 13:45 07/21/17 21:28 Miralax (For Daily Use) - NGT 17 grams BID ELISHA Administration ASSESSMENT/PLAN: 22 year old male pmh cerebral palsy, developmental delays, blindness, seizure, myelomeningocele, [employer] shunt managed by ID for fevers/elevated WBC 2/2 ventriculoperitoneal shunt infection with intraabdominal fluid collection Neuro: Neurosurgery Consult: "[employer] Shunt Infection: CSF grew gram (-) rods -neurosurg to take distal end [employer] shunt and allow drainage outside of body -continue flagyl 500 IV Q8 and Meropenem 2g IV Q8 -trend WBC, monitor BP -ESR/CRP -IR to drain fluid collection" Patient presently in OR to externalize shunt. ID: - Continue Meroponem/flagyl per neurosurg Respi: - AC mode of vent Start enteral feed for nutrition after surgery. Visit type - Emergency Visit Emergency Visit: No - New Patient This patient is new to me today: No - Critical Care Critical Care patient: Yes Total Critical Care Time (in minutes): 50 Critical Care Statement: The care of this patient involved high complexity decision making to prevent further life threatening deterioration of the patient 's condition and/or to evaluate & treat vital organ system(s) failure or risk of failure.
--- NOTE | 2017-07-22 08:58 | PN ---
Physical Exam: SUBJECTIVE: Patient seen and examined at bedside in ICU. Parents present. OBJECTIVE: Vital Signs Period Temp Pulse Resp BP Sys/Lyons Pulse Ox Last 24 Hr 97.7 F-101.4 F 97-146 16-42 109-146/54-88 97-100 GENERAL/NEURO: Intubated, sedated. HEAD: Hydrocephalic. LUNGS: Rhonchorous breath sounds throughout; tachypnic HEART: Regular rate and rhythm, S1, S2 without murmur, rub or gallop. ABDOMEN: Distended EXTREMITIES: shortened lower extremities, club feet Laboratory Results - last 24 hr 07/21/17 07/21/17 07/21/17 07:00 07:00 07:00 WBC 18.7 H D RBC 3.42 L Hgb 10.0 L Hct 30.7 L MCV 89.6 MCH 29.2 MCHC 32.6 RDW 16.3 H Plt Count 282 D MPV 8.6 Neutrophils % 88.5 H Lymphocytes % 4.0 L D Monocytes % 6.8 Eosinophils % 0.5 Basophils % 0.2 Puncture Site ABG pH ABG pCO2 at Pt Temp ABG pO2 at Pt Temp ABG HCO3 ABG O2 Sat (Measured) ABG O2 Content ABG Base Excess Bernabe Test O2 Delivery Device Oxygen Flow Rate Vent Mode Vent Rate Mechanical Rate PEEP Pressure Support Vent Sodium 144 Potassium 4.5 D Chloride 111 H Carbon Dioxide 21 Anion Gap 12 BUN 26 H D Creatinine 1.0 D Creat Clearance w eGFR > 60 Random Glucose 88 Lactic Acid 0.7 Calcium 7.6 L Phosphorus 3.1 D Magnesium 1.5 L Total Bilirubin 0.5 D AST 16 D ALT 8 L Alkaline Phosphatase 94 Total Protein 6.4 Albumin 1.7 L Urine Color Urine Appearance Urine pH Ur Specific [place] Urine Protein Urine Glucose (UA) Urine Ketones Urine Blood Urine Nitrite Urine Bilirubin Urine Urobilinogen Ur Leukocyte Esterase Urine RBC Urine WBC Ur Epithelial Cells Urine Bacteria Urine Mucus CSF Appearance CSF Color CSF WBC CSF RBC CSF Neutrophils CSF Lymphocytes CSF Monocytes CSF Glucose CSF Total Protein Random Vancomycin Vancomycin Pre-Dose 07/21/17 07/21/17 07/21/17 11:00 14:08 17:15 WBC RBC Hgb Hct MCV MCH MCHC RDW Plt Count MPV Neutrophils % Lymphocytes % Monocytes % Eosinophils % Basophils % Puncture Site Left radial ABG pH 7.37 ABG pCO2 at Pt Temp 30.6 L ABG pO2 at Pt Temp 91.0 ABG HCO3 17.3 L ABG O2 Sat (Measured) 97.8 ABG O2 Content 13.5 L ABG Base Excess -6.5 L Bernabe Test Positive O2 Delivery Device Vent Oxygen Flow Rate 60% Vent Mode A/c Vent Rate 14 Mechanical Rate Y PEEP 5.0 Pressure Support Vent 350 Sodium Potassium Chloride Carbon Dioxide Anion Gap BUN Creatinine Creat Clearance w eGFR Random Glucose Lactic Acid Calcium Phosphorus Magnesium Total Bilirubin AST ALT Alkaline Phosphatase Total Protein Albumin Urine Color Straw Urine Appearance Clear Urine pH 5.0 Ur Specific [place] 1.010 Urine Protein Negative Urine Glucose (UA) Negative Urine Ketones Negative Urine Blood 2+ H Urine Nitrite Negative Urine Bilirubin Negative Urine Urobilinogen Negative Ur Leukocyte Esterase Negative Urine RBC 7 Urine WBC 3 Ur Epithelial Cells Rare Urine Bacteria Rare Urine Mucus Rare CSF Appearance CSF Color CSF WBC CSF RBC CSF Neutrophils CSF Lymphocytes CSF Monocytes CSF Glucose CSF Total Protein Random Vancomycin Vancomycin Pre-Dose 58.27 H* D 07/21/17 07/21/17 07/22/17 19:00 19:00 05:00 WBC RBC Hgb Hct MCV MCH MCHC RDW Plt Count MPV Neutrophils % Lymphocytes % Monocytes % Eosinophils % Basophils % Puncture Site ABG pH ABG pCO2 at Pt Temp ABG pO2 at Pt Temp ABG HCO3 ABG O2 Sat (Measured) ABG O2 Content ABG Base Excess Bernabe Test O2 Delivery Device Oxygen Flow Rate Vent Mode Vent Rate Mechanical Rate PEEP Pressure Support Vent Sodium Potassium Chloride Carbon Dioxide Anion Gap BUN Creatinine Creat Clearance w eGFR Random Glucose Lactic Acid Calcium Phosphorus Magnesium Total Bilirubin AST ALT Alkaline Phosphatase Total Protein Albumin Urine Color Urine Appearance Urine pH Ur Specific [place] Urine Protein Urine Glucose (UA) Urine Ketones Urine Blood Urine Nitrite Urine Bilirubin Urine Urobilinogen Ur Leukocyte Esterase Urine RBC Urine WBC Ur Epithelial Cells Urine Bacteria Urine Mucus CSF Appearance Turbid CSF Color Xanthochromic CSF WBC 65840 CSF RBC 100 CSF Neutrophils 81 CSF Lymphocytes 16 CSF Monocytes 3 CSF Glucose 2 L CSF Total Protein 1622 H Cancelled Random Vancomycin 35.055 Vancomycin Pre-Dose 07/22/17 05:00 WBC 19.1 H RBC 3.13 L Hgb 9.1 L Hct 27.8 L MCV 88.6 MCH 29.1 MCHC 32.8 RDW 15.8 Plt Count 348 D MPV 8.5 Neutrophils % Lymphocytes % Monocytes % Eosinophils % Basophils % Puncture Site ABG pH ABG pCO2 at Pt Temp ABG pO2 at Pt Temp ABG HCO3 ABG O2 Sat (Measured) ABG O2 Content ABG Base Excess Bernabe Test O2 Delivery Device Oxygen Flow Rate Vent Mode Vent Rate Mechanical Rate PEEP Pressure Support Vent Sodium Potassium Chloride Carbon Dioxide Anion Gap BUN Creatinine Creat Clearance w eGFR Random Glucose Lactic Acid Calcium Phosphorus Magnesium Total Bilirubin AST ALT Alkaline Phosphatase Total Protein Albumin Urine Color Urine Appearance Urine pH Ur Specific [place] Urine Protein Urine Glucose (UA) Urine Ketones Urine Blood Urine Nitrite Urine Bilirubin Urine Urobilinogen Ur Leukocyte Esterase Urine RBC Urine WBC Ur Epithelial Cells Urine Bacteria Urine Mucus CSF Appearance CSF Color CSF WBC CSF RBC CSF Neutrophils CSF Lymphocytes CSF Monocytes CSF Glucose CSF Total Protein Random Vancomycin Vancomycin Pre-Dose Active Medications Generic Name Dose Route Start Last Admin Trade Name Freq PRN Reason Stop Dose Admin Acetaminophen 1,000 mg 07/20/17 16:45 07/22/17 01:04 Ofirmev Injection - IVPB 1,000 mg Q8H ELISHA Administration Albuterol/Ipratropium 1 amp 07/21/17 08:00 07/22/17 06:00 Duoneb - NEB 1 amp QIDR ELISHA Administration Heparin Sodium (Porcine) 5,000 unit 07/15/17 14:00 07/22/17 06:21 Heparin - SQ 5,000 unit TID ELISHA Administration Potassium Chloride 40 meq/ 1,020 mls @ 84 mls/hr 07/16/17 16:15 07/22/17 04:15 Amino Acids IVPB 84 mls/hr Q12H ELISHA Administration Metronidazole 100 mls @ 100 mls/hr 07/21/17 10:00 07/22/17 01:04 Flagyl 500mg Premixed Ivpb - IVPB 100 mls/hr Q8H-IV ELISHA Administration Propofol 100 mls @ 2.541 mls/hr 07/21/17 13:30 07/21/17 13:35 Diprivan - IVPB 10 mcg/kg/min TITR ELISHA Titration Protocol 5 MCG/KG/MIN Meropenem 2 gm/ Dextrose 100 mls @ 100 mls/hr 07/21/17 22:00 07/22/17 06:17 IVPB 100 mls/hr Q8H ELISHA Administration Protocol Pantoprazole Sodium 100 mls @ 200 mls/hr 07/22/17 10:00 Protonix 40mg Ivpb (Pre-Docked) IVPB DAILY ELISHA Insulin Aspart 1 vial 07/17/17 07:00 07/22/17 06:17 Novolog Vial Sliding Scale - SQ Not Given AM ELISHA Protocol Metoclopramide HCl 10 mg 07/15/17 15:30 07/22/17 03:30 Reglan Injection - IVPB 10 mg Q6H ELISHA Administration Multivitamins/Minerals 10 ml 07/17/17 10:00 07/21/17 16:47 Infuvite Adult - IV 10 ml DAILY ELISHA Administration Phenobarbital 150 mg 07/15/17 22:00 07/21/17 21:28 Phenobarbital Injection - IVPB 150 mg HS ELISHA Administration Phenobarbital 97 mg 07/16/17 07:00 07/22/17 06:22 Phenobarbital Injection - IVPB 97 mg AM ELISHA Administration Polyethylene Glycol 17 gm 07/21/17 13:45 07/21/17 21:28 Miralax (For Daily Use) - NGT 17 grams BID ELISHA Administration ASSESSMENT/PLAN 21 year-old male with a H signficant for profound developmental delays, spastic cerebral palsy, cortical blindness, seizure disorder, club feet, macrocephaly, meningiomyelocele at , spinal defect, WAX [employer] shunt. Admitted for bilateral pneumonia and SBO. Severe Sepsis Bilateral pneumonia Staph auricularis bacteremia GNR meningitis Infected W[employer] shunt Intraabdominal collection likely infectious --Tm 101.4; WBC rising 19.1k --CSF growing GNR --meropenem started (day #1); continue metronidazole (day #2); cefepime dc'd (07/21-2 doses) --to OR today with Dr. Rocha for externalization of shunt --discussed with Dr. Duenas, may perform IR drainage if not addressed in OR Hypoxic respiratory failure --intubated Bilateral hydroureternephrosis --may be secondary to intraperitoneal fluid collection --renal function stable, making good urine, 3.5L over past 24 hours SBO, improved Ileus --continue to decompress via NGT and bowel regimen Seizure disorder --no seizure activity, close monitor on carbapenem --continue phenobarbital Hypernatremia --resolved Hypokalemia --resolved Hypophosphatemia --resolved Functional quadripalegic --profound developmental delays, spastic limbs, cortical blindness, club feet , contracted extremities --fully dependent for all ADLs F/E/N Fluids/Nutrition: Clinimix+40K @ 83mL/hr Electrolytes: replete as indicated DVT prophylaxis: subq heparin Dispo: continues to require ICU care. Full Code. Visit type - Emergency Visit Emergency Visit: Yes ED Registration Date: 07/11/17 Care time: The patient presented to the Emergency Department on the above date and was hospitalized for further evaluation of their emergent condition. - New Patient This patient is new to me today: No - Critical Care Critical Care patient: Yes Total Critical Care Time (in minutes): 45 Critical Care Statement: The care of this patient involved high complexity decision making to prevent further life threatening deterioration of the patient 's condition and/or to evaluate & treat vital organ system(s) failure or risk of failure.
--- NOTE | 2017-07-22 09:32 | PN ---
Progress Note (short form) - Note Progress Note: events of last night noted, d/w hospitalist last evening intubated vp home health shunt tapped last night d/w bobbin handler and neurosurgeon, general surgeon this am started on meropenem/flagyl last nigh vancomycin level is supratherapeutic he is now intubated Vital Signs Period Temp Pulse Resp BP Sys/Lyons Pulse Ox Last 24 Hr 97.7 F-101.4 F 106-146 16-42 109-146/54-88 97-100 intubated, no pressors macrocephaly cor-rrr lungs decreased bs at bases abd firm, distended +bs ext no edema +perez +rij CVP CBC, BMP 07/22/17 05:00 07/21/17 07:00 Microbiology 07/21/17 08:30 Blood - Central Line Blood Culture - Preliminary NO GROWTH OBTAINED AFTER 24 HOURS, INCUBATION TO CONTINUE FOR 4 DAYS. 07/21/17 08:30 Blood - Central Line Blood Culture - Preliminary NO GROWTH OBTAINED AFTER 24 HOURS, INCUBATION TO CONTINUE FOR 4 DAYS. 07/21/17 19:00 Cerebral Spinal Fluid - Shunt-Csf CSF Culture - Preliminary Gram Negative Andre 07/16/17 17:00 Blood - Peripheral Venous Blood Culture - Final NO GROWTH AFTER 5 DAYS INCUBATION 07/16/17 17:00 Blood - Peripheral Venous Blood Culture - Final NO GROWTH AFTER 5 DAYS INCUBATION 07/16/17 20:00 Urine - Urine Perez Urine Culture - Final NO GROWTH OBTAINED 07/13/17 09:25 Blood - Peripheral Venous Blood Culture - Final NO GROWTH AFTER 5 DAYS INCUBATION 07/13/17 09:25 Blood - Peripheral Venous Blood Culture - Final NO GROWTH AFTER 5 DAYS INCUBATION 07/11/17 20:30 Blood - Peripheral Venous Blood Culture - Final Staphylococcus Auricularis 07/14/17 10:00 Urine - Urine Perez Urine Culture - Final NO GROWTH OBTAINED 07/12/17 13:30 Urine - Urine Perez Urine Culture - Final NO GROWTH OBTAINED 07/11/17 20:30 Blood - Peripheral Venous Blood Culture - Preliminary Staphylococcus Coagulase Neg 07/11/17 20:48 Urine - Urine Clean Catch Urine Culture - Final Contaminated: Please Repeat Current Medications Acetaminophen (Ofirmev Injection -) 1,000 mg IVPB Q8H ELISHA Last Admin: 07/22/17 01:04 Dose: 1,000 mg Albuterol/Ipratropium (Duoneb -) 1 amp NEB QIDR ELISHA Last Admin: 07/22/17 06:00 Dose: 1 amp Heparin Sodium (Porcine) (Heparin -) 5,000 unit SQ TID ELISHA Last Admin: 07/22/17 06:21 Dose: 5,000 unit Potassium Chloride 40 meq/ (Amino Acids) 1,020 mls @ 84 mls/hr IVPB Q12H ELISHA Last Admin: 07/22/17 04:15 Dose: 84 mls/hr Metronidazole (Flagyl 500mg Premixed Ivpb -) 100 mls @ 100 mls/hr IVPB Q8H-IV ELISHA Last Admin: 07/22/17 01:04 Dose: 100 mls/hr Propofol (Diprivan -) 100 mls @ 2.541 mls/hr IVPB TITR ELISHA; 5 MCG/KG/MIN PRN Reason: Protocol Last Titration: 07/21/17 13:35 Dose: 10 mcg/kg/min Meropenem 2 gm/ Dextrose 100 mls @ 100 mls/hr IVPB Q8H ELISHA PRN Reason: Protocol Last Admin: 07/22/17 06:17 Dose: 100 mls/hr Pantoprazole Sodium (Protonix 40mg Ivpb (Pre-Docked)) 100 mls @ 200 mls/hr IVPB DAILY [facility] Insulin Aspart (Novolog Vial Sliding Scale -) 1 vial SQ AM ELISHA PRN Reason: Protocol Last Admin: 07/22/17 06:17 Dose: Not Given Metoclopramide HCl (Reglan Injection -) 10 mg IVPB Q6H [facility] Last Admin: 07/22/17 03:30 Dose: 10 mg Multivitamins/Minerals (Infuvite Adult -) 10 ml IV DAILY ELISHA Last Admin: 07/21/17 16:47 Dose: 10 ml Phenobarbital (Phenobarbital Injection -) 150 mg IVPB HS [facility] Last Admin: 07/21/17 21:28 Dose: 150 mg Phenobarbital (Phenobarbital Injection -) 97 mg IVPB AM [facility] Last Admin: 07/22/17 06:22 Dose: 97 mg Polyethylene Glycol (Miralax (For Daily Use) -) 17 gm NGT BID [facility] Last Admin: 07/21/17 21:28 Dose: 17 grams a/p vp home health shunt infection- gram negative meningitis for head ct this am to OR this afternoon with neurosurgery general surgery following for drainage of intra-abdominal collections by IR continue meropenem/flagyl f/u cultures respiratory failure- vent management per icu developmental delay/functional quadraplegia macrocephaly/vp home health shunt seizure disorder overall prognosis is guarded over 35 minutes spent in the care of this critically ill ICU patient
[2017-07-22] MEDS ORDERED: PT OWN MED DRAWER 7, Y5N ONE ×3 (11:12→21:16)
[2017-07-22] MEDS: PANTOPRAZOLE SODIUM 100 ML IVPB SCH (11:20)
[2017-07-22] MEDS: POLYETHYLENE GLYCOL 3350 119 GM BTL NGT SCH ×2 (11:22→21:47)
--- NOTE | 2017-07-22 11:51 | PN ---
Progress Note, Physician History of Present Illness: 22 year old male pmh cerebral palsy, hydrocephalus, developmental delays, blindness, seizure disorder, club feet, myelomeningocele and STONE FINISHER shunt initially admitted for b/l pneumonia/SBO was initially improving clinically. Yesterday spiked fevers and had an elevation in WBC. CSF tap revealed numerous bacteria and WBCs (77505) 2/2 overt shunt infection. Culture grew gram (-) rods. ID following for antibiotic management. - Current Medication List Current Medications: Active Medications Acetaminophen (Ofirmev Injection -) 1,000 mg IVPB Q8H [facility] Last Admin: 07/22/17 11:14 Dose: 1,000 mg Albuterol/Ipratropium (Duoneb -) 1 amp NEB QIDR [facility] Last Admin: 07/22/17 06:00 Dose: 1 amp Heparin Sodium (Porcine) (Heparin -) 5,000 unit SQ TID [facility] Last Admin: 07/22/17 06:21 Dose: 5,000 unit Potassium Chloride 40 meq/ (Amino Acids) 1,020 mls @ 84 mls/hr IVPB Q12H [facility] Last Admin: 07/22/17 04:15 Dose: 84 mls/hr Metronidazole (Flagyl 500mg Premixed Ivpb -) 100 mls @ 100 mls/hr IVPB Q8H-IV [facility] Last Admin: 07/22/17 11:21 Dose: 100 mls/hr Propofol (Diprivan -) 100 mls @ 2.541 mls/hr IVPB TITR [facility]; 5 MCG/KG/MIN PRN Reason: Protocol Last Titration: 07/21/17 13:35 Dose: 10 mcg/kg/min Meropenem 2 gm/ Dextrose 100 mls @ 100 mls/hr IVPB Q8H [facility] PRN Reason: Protocol Last Admin: 07/22/17 06:17 Dose: 100 mls/hr Pantoprazole Sodium (Protonix 40mg Ivpb (Pre-Docked)) 100 mls @ 200 mls/hr IVPB DAILY [facility] Last Admin: 07/22/17 11:20 Dose: 200 mls/hr Insulin Aspart (Novolog Vial Sliding Scale -) 1 vial SQ AM [facility] PRN Reason: Protocol Last Admin: 07/22/17 06:17 Dose: Not Given Metoclopramide HCl (Reglan Injection -) 10 mg IVPB Q6H [facility] Last Admin: 07/22/17 11:20 Dose: 10 mg Multivitamins/Minerals (Infuvite Adult -) 10 ml IV DAILY [facility] Last Admin: 07/21/17 16:47 Dose: 10 ml Phenobarbital (Phenobarbital Injection -) 150 mg IVPB HS [facility] Last Admin: 07/21/17 21:28 Dose: 150 mg Phenobarbital (Phenobarbital Injection -) 97 mg IVPB AM [facility] Last Admin: 07/22/17 06:22 Dose: 97 mg Polyethylene Glycol (Miralax (For Daily Use) -) 17 gm NGT BID [facility] Last Admin: 07/22/17 11:22 Dose: Not Given - Objective Vital Signs: Vital Signs Temperature 99 F 07/22/17 10:00 Pulse Rate 115 H 07/22/17 11:08 Respiratory Rate 27 H 07/22/17 11:08 Blood Pressure 122/66 07/22/17 11:08 O2 Sat by Pulse Oximetry (%) 100 07/22/17 10:14 Constitutional: Yes: Obese, Other (Unable to assess well) HENT: Yes: Atraumatic, Other (Head grossly enlarged 2/2 hydrocephalus) Neck: Yes: Supple, Trachea Midline Cardiovascular: Yes: Tachycardia, S1, S2. No: Gallop, Murmur, Rub Respiratory: Yes: Regular, Intubated, Mechanically Ventilated. No: Cough, Rales , Rhonchi, Wheezes Gastrointestinal: Yes: Abdomen, Obese, Distention, Hypoactive Bowel Sounds. No : Tenderness Genitourinary: Yes: Schwartz Present Edema: No Peripheral Pulses WNL: Yes Wound/Incision: Yes: Clean/Dry Neurological: Yes: Unresponsive. No: Cran Nerves II-XII Intact Psychiatric: No: Alert, Oriented Labs: CBC, BMP 07/22/17 05:00 07/21/17 07:00 INR, PTT INR 1.51 (0.82-1.09) H 07/14/17 05:00 - ....Imaging Chest X-ray: Report Reviewed Cat Scan: Report Reviewed Problem List - Problems (1) Infection of ventriculoperitoneal shunt Code(s): T85.730A - I/I REACT D/T VENTRICULAR INTRACRANIAL SHUNT, INIT (2) Sepsis Code(s): A41.9 - SEPSIS, UNSPECIFIED ORGANISM Assessment/Plan 22 year old male pmh cerebral palsy, developmental delays, blindness, seizure, myelomeningocele, STONE FINISHER shunt managed by ID for fevers/elevated WBC 2/2 ventriculoperitoneal shunt infection with intraabdominal fluid collection STONE FINISHER Shunt Infection: CSF grew gram (-) rods -neurosurg to take distal end STONE FINISHER shunt and allow drainage outside of body -continue flagyl 500 IV Q8 and Meropenem 2g IV Q8 -trend WBC, monitor BP -ESR/CRP -IR to drain fluid collection
--- NOTE | 2017-07-22 12:00 | PN ---
Progress Note (short form) - Note Progress Note: Seen by Neurosurgery + Infected ORACLE CONSULTANT shunt with intraabdominal collection from ORACLE CONSULTANT shunt In ICU Vital Signs Period Temp Pulse Resp BP Sys/Lyons Pulse Ox Last 24 Hr 97.7 F-100.9 F 106-146 16-42 109-146/54-79 97-100 Abd soft, no rebound CBC, BMP 07/22/17 05:00 CT- no bowel obstruction, no free air; large intraabdominal fluid collection IR for drainage of collection Antibiotics Problem List - Problems (1) Distended abdomen Code(s): R14.0 - ABDOMINAL DISTENSION (GASEOUS) (2) SBO (small bowel obstruction) Code(s): K56.69 - OTHER INTESTINAL OBSTRUCTION
[2017-07-22 12:17] LABS: INR 1.63 (0.82-1.09); PROTHROMBIN TIME (PATIENT) 18.1 SEC (9.98-11.88)
[2017-07-22 12:20] LABS: ACTIVATED PTT 36.4 SECONDS (26.9-34.4)
[2017-07-22 12:29] LABS: ALBUMIN 1.4 g/dl (3.4-5.0); ANION GAP 13 (8-16); BILIRUBIN,TOTAL 0.4 mg/dL (0.2-1.0); CALCIUM 8.1 mg/dL (8.5-10.1); CO2 19 mmol/L (21-32); GLUCOSE,RANDOM 98 mg/dL (74-106); SGOT/AST 13 U/L (15-37); TOT PROT 5.7 g/dl (6.4-8.2)
[2017-07-22 12:32] LABS: ALK PHOS 93 U/L (45-117); SGPT/ALT 8 U/L (12-78)
--- NOTE | 2017-07-22 13:21 | PN ---
Teaching Attending Note Name of Resident: Tomas Reddy ATTENDING PHYSICIAN STATEMENT I saw and evaluated the patient. I reviewed the resident's note and discussed the case with the resident. I agree with the resident's findings and plan as documented. SUBJECTIVE: Patient seen and examined in the ICU. Remains intubated and sedated. AC Mode of vent. No pressors. CAMP RECREATION SPECIALIST accessed last night -> clearly infectious process. Intake & Output 07/19/17 07/20/17 07/21/17 07/22/17 23:59 23:59 23:59 23:59 Intake Total 2908 3274 3241 1357.2 Output Total 2600 1450 3550 2500 Balance 308 1824 -309 -1142.8 Weight 186 lb 11.2 oz 184 lb 12.8 oz Last Vital Signs Temp Pulse Resp BP Pulse Ox 99.0 F 111 H 22 118/57 100 07/22/17 12:00 07/22/17 12:00 07/22/17 12:00 07/22/17 12:00 07/22/17 10:14 Active Medications Acetaminophen (Ofirmev Injection -) 1,000 mg IVPB Q8H [facility] Last Admin: 07/22/17 11:14 Dose: 1,000 mg Albuterol/Ipratropium (Duoneb -) 1 amp NEB QIDR [facility] Last Admin: 07/22/17 06:00 Dose: 1 amp Heparin Sodium (Porcine) (Heparin -) 5,000 unit SQ TID [facility] Last Admin: 07/22/17 06:21 Dose: 5,000 unit Potassium Chloride 40 meq/ (Amino Acids) 1,020 mls @ 84 mls/hr IVPB Q12H [facility] Last Admin: 07/22/17 04:15 Dose: 84 mls/hr Metronidazole (Flagyl 500mg Premixed Ivpb -) 100 mls @ 100 mls/hr IVPB Q8H-IV [facility] Last Admin: 07/22/17 11:21 Dose: 100 mls/hr Propofol (Diprivan -) 100 mls @ 2.541 mls/hr IVPB TITR [facility]; 5 MCG/KG/MIN PRN Reason: Protocol Last Titration: 07/21/17 13:35 Dose: 10 mcg/kg/min Meropenem 2 gm/ Dextrose 100 mls @ 100 mls/hr IVPB Q8H [facility] PRN Reason: Protocol Last Admin: 07/22/17 06:17 Dose: 100 mls/hr Pantoprazole Sodium (Protonix 40mg Ivpb (Pre-Docked)) 100 mls @ 200 mls/hr IVPB DAILY [facility] Last Admin: 07/22/17 11:20 Dose: 200 mls/hr Insulin Aspart (Novolog Vial Sliding Scale -) 1 vial SQ AM [facility] PRN Reason: Protocol Last Admin: 07/22/17 06:17 Dose: Not Given Metoclopramide HCl (Reglan Injection -) 10 mg IVPB Q6H [facility] Last Admin: 07/22/17 11:20 Dose: 10 mg Multivitamins/Minerals (Infuvite Adult -) 10 ml IV DAILY [facility] Last Admin: 07/21/17 16:47 Dose: 10 ml Phenobarbital (Phenobarbital Injection -) 150 mg IVPB HS [facility] Last Admin: 07/21/17 21:28 Dose: 150 mg Phenobarbital (Phenobarbital Injection -) 97 mg IVPB AM [facility] Last Admin: 07/22/17 06:22 Dose: 97 mg Polyethylene Glycol (Miralax (For Daily Use) -) 17 gm NGT BID [facility] Last Admin: 07/22/17 11:22 Dose: Not Given Gen: Intubated and sedated Heart: tachycardic, regular Lung: scattered rhonchi Abd: softly distended Ext: contracted Laboratory Results - last 24 hr 07/21/17 07/21/17 07/21/17 14:08 17:15 19:00 WBC RBC Hgb Hct MCV MCH MCHC RDW Plt Count MPV INR PTT (Actin FS) Puncture Site Left radial ABG pH 7.37 ABG pCO2 at Pt Temp 30.6 L ABG pO2 at Pt Temp 91.0 ABG HCO3 17.3 L ABG O2 Sat (Measured) 97.8 ABG O2 Content 13.5 L ABG Base Excess -6.5 L Bernabe Test Positive O2 Delivery Device Vent Oxygen Flow Rate 60% Vent Mode A/c Vent Rate 14 Mechanical Rate Y PEEP 5.0 Pressure Support Vent 350 Sodium Potassium Chloride Carbon Dioxide Anion Gap BUN Creatinine Creat Clearance w eGFR POC Glucometer Random Glucose Calcium Total Bilirubin AST ALT Alkaline Phosphatase Total Protein Albumin Urine Color Straw Urine Appearance Clear Urine pH 5.0 Ur Specific Veyo 1.010 Urine Protein Negative Urine Glucose (UA) Negative Urine Ketones Negative Urine Blood 2+ H Urine Nitrite Negative Urine Bilirubin Negative Urine Urobilinogen Negative Ur Leukocyte Esterase Negative Urine RBC 7 Urine WBC 3 Ur Epithelial Cells Rare Urine Bacteria Rare Urine Mucus Rare CSF Appearance Turbid CSF Color Xanthochromic CSF WBC 82109 CSF RBC 100 CSF Neutrophils 81 CSF Lymphocytes 16 CSF Monocytes 3 CSF Glucose 2 L CSF Total Protein 1622 H Random Vancomycin 07/21/17 07/22/17 07/22/17 19:00 05:00 05:00 WBC 19.1 H RBC 3.13 L Hgb 9.1 L Hct 27.8 L MCV 88.6 MCH 29.1 MCHC 32.8 RDW 15.8 Plt Count 348 D MPV 8.5 INR PTT (Actin FS) Puncture Site ABG pH ABG pCO2 at Pt Temp ABG pO2 at Pt Temp ABG HCO3 ABG O2 Sat (Measured) ABG O2 Content ABG Base Excess Bernabe Test O2 Delivery Device Oxygen Flow Rate Vent Mode Vent Rate Mechanical Rate PEEP Pressure Support Vent Sodium Potassium Chloride Carbon Dioxide Anion Gap BUN Creatinine Creat Clearance w eGFR POC Glucometer Random Glucose Calcium Total Bilirubin AST ALT Alkaline Phosphatase Total Protein Albumin Urine Color Urine Appearance Urine pH Ur Specific Veyo Urine Protein Urine Glucose (UA) Urine Ketones Urine Blood Urine Nitrite Urine Bilirubin Urine Urobilinogen Ur Leukocyte Esterase Urine RBC Urine WBC Ur Epithelial Cells Urine Bacteria Urine Mucus CSF Appearance CSF Color CSF WBC CSF RBC CSF Neutrophils CSF Lymphocytes CSF Monocytes CSF Glucose CSF Total Protein Cancelled Random Vancomycin 35.055 07/22/17 07/22/17 07/22/17 05:14 11:00 11:00 WBC RBC Hgb Hct MCV MCH MCHC RDW Plt Count MPV INR 1.63 H PTT (Actin FS) 36.4 H Puncture Site ABG pH ABG pCO2 at Pt Temp ABG pO2 at Pt Temp ABG HCO3 ABG O2 Sat (Measured) ABG O2 Content ABG Base Excess Bernabe Test O2 Delivery Device Oxygen Flow Rate Vent Mode Vent Rate Mechanical Rate PEEP Pressure Support Vent Sodium 150 H Potassium 3.8 Chloride 118 H Carbon Dioxide 19 L Anion Gap 13 BUN 29 H Creatinine 1.0 Creat Clearance w eGFR > 60 POC Glucometer 138.22789 Random Glucose 98 Calcium 8.1 L Total Bilirubin 0.4 AST 13 L ALT 8 L Alkaline Phosphatase 93 Total Protein 5.7 L Albumin 1.4 L Urine Color Urine Appearance Urine pH Ur Specific Veyo Urine Protein Urine Glucose (UA) Urine Ketones Urine Blood Urine Nitrite Urine Bilirubin Urine Urobilinogen Ur Leukocyte Esterase Urine RBC Urine WBC Ur Epithelial Cells Urine Bacteria Urine Mucus CSF Appearance CSF Color CSF WBC CSF RBC CSF Neutrophils CSF Lymphocytes CSF Monocytes CSF Glucose CSF Total Protein Random Vancomycin ASSESSMENT AND PLAN: Acute Respiratory Failure CAMP RECREATION SPECIALIST shunt infection GM (-) meningitis Likely Aspiration Pneumonia Small Bowel Obstruction Staph Bacteremia UTI Sepsis Lactic Acidosis resolved Cerebral Palsy Macrocephaly/Hydrocephalus s/p CAMP RECREATION SPECIALIST shunt AC mode of vent For OR to externalize shunt IR evaluation of intra-abdominal process ABX per ID AC mode of vent Enteral feeds VTE prophylaxis Dr Starkey Critical care time spent in reviewing chart, evaluating patient and formulating plan 35 min
[2017-07-22] MEDS ORDERED: ROCURONIUM BROMIDE 50 MG/5 ML VIAL ONE (15:31)
[2017-07-22] MEDS ORDERED: GENTAMICIN SO4 80 MG/2 ML VIAL ONE (16:29)
--- NOTE | 2017-07-22 16:51 | OP ---
Operative Note - Note: Operative Date: 07/22/17 Pre-Operative Diagnosis: Infected DRYWALL TAPER shunt, Meningitis, Hydrocephalus Operation: Exteriorize distal portion of shunt Post-Operative Diagnosis: Same as Pre-op Surgeon: Jarett Hammer Clinical Rehab Specialist: Brannon Ramirez Anesthesiologist/CABLE SUPERVISOR: Filomena Lockhart Anesthesia: General Estimated Blood Loss (mls): 20 Fluid Volume Replaced (mls): 100 Operative Report Dictated: Yes
--- NOTE | 2017-07-22 16:53 | SURG ---
Surgery Road Supervisor Of Engines Note Road Supervisor Of Engines: Brannon Ramirez PA-C Date of Service: 07/22/17 Diagnosis: Infected MACHINE CEMENTER shunt, Meningitis, Hydrocephalus Procedure: Externalization of distal portion of MACHINE CEMENTER shunt I was present for the entirety of the operative procedure. For further detail, please refer to operative report. Visit type - Case Type Case Type: ED Admission - New patient This patient is new to me today: Yes Date on this admission: 07/22/17
[2017-07-22] MEDS: PROPOFOL 100 ML IVPB SCH (17:53)
[2017-07-22] MEDS: MULTIVIT INJ. ADULT COMBO WITH VIT K 1 COMBO 10 ML VIAL IV SCH (17:56)
[2017-07-23] MEDS: METRONIDAZOLE 500 MG PREMIXED 100 ML IVPB SCH ×2 (02:36→11:38)
[2017-07-23] MEDS: ACETAMINOPHEN 1000 MG/100 ML VIAL (NON FORMULARY) IVPB SCH ×2 (02:37→12:18)
[2017-07-23] MEDS: METOCLOPRAMIDE HCL INJECTION 10 MG/2 ML VIAL IVPB SCH ×3 (03:09→17:54)
[2017-07-23] MEDS: POTASSIUM CHLORIDE 40 MEQ in AMINO ACIDS 4.25%/D5W 1,000 ML IVPB SCH ×2 (06:00→17:00)
[2017-07-23] MEDS: ALBUTEROL SO4 2.5/IPRATROPIUM 0.5 INH SOL 3 ML VIAL.NEB. NEB SCH ×3 (06:00→11:03)
[2017-07-23 06:13] LABS: MCH 29.3 pg (25.7-33.7); MCHC 32.9 g/dl (32.0-35.9); MEAN CELL VOLUME 89.2 fl (80-96); MEAN PLT VOLUME 8.5 fl (7.5-11.1); PLATELET COUNT 362 K/MM3 (134-434); RDW 16.4 % (11.9-15.9)
[2017-07-23] MEDS: HEPARIN NA (PORCINE) 5,000 UNITS/ML 1ML VIAL SQ SCH ×2 (06:34→13:50)
[2017-07-23] MEDS: PHENobarbital SODIUM 65 MG/1 ML VIAL IVPB SCH (06:34)
[2017-07-23] MEDS: INSULIN SLIDING SCALE (NOVOLOG) 1 VIAL SQ SCH (06:47)
[2017-07-23 06:50] LABS: ALBUMIN 1.3 g/dl (3.4-5.0); ALK PHOS 97 U/L (45-117); ANION GAP 13 (8-16); BILIRUBIN,TOTAL 0.4 mg/dL (0.2-1.0); CALCIUM 8.3 mg/dL (8.5-10.1); CO2 16 mmol/L (21-32); CREATININE 1.1 mg/dL (0.7-1.3); GLUCOSE,RANDOM 114 mg/dL (74-106); MAGNESIUM 1.5 mg/dL (1.8-2.4); SGOT/AST 15 U/L (15-37); SGPT/ALT 7 U/L (12-78); TOT PROT 5.9 g/dl (6.4-8.2)
[2017-07-23] MEDS: MEROPENEM 2 GM in DEXTROSE 5%-WATER - 100 ML IVPB SCH ×2 (06:52→15:41)
[2017-07-23 07:01] LABS: PHOSPHOROUS 0.7 mg/dL (2.5-4.9)
[2017-07-23] MEDS ORDERED: MAGNESIUM SULF 50% (8.12 MEQ/2 ML-1 GM VIAL) IVPB ONE (07:11)
--- NOTE | 2017-07-23 07:28 | PN ---
Teaching Attending Note Name of Resident: Garcia Wheat ATTENDING PHYSICIAN STATEMENT I saw and evaluated the patient. I reviewed the resident's note and discussed the case with the resident. I agree with the resident's findings and plan as documented. SUBJECTIVE:ID TELECOMMUNICATIONS CONSULTANT shunt exteriorized yesterday NO fever Vancomycin on hold Meropenem and metrondizole OBJECTIVE: ASSESSMENT AND PLAN: Selected Entries 07/23/17 07/23/17 02:00 03:01 Temperature 97.6 F Pulse Rate 102 H Respiratory 30 H Rate Blood Pressure 119/66 Intubated Lung Course rhonchi Cor S1 S2 RR tachy Abd distended soft nontender Microbiology 07/21/17 19:00 Cerebral Spinal Fluid - Shunt-Csf Gram Stain - Final 07/11/17 20:30 Blood - Peripheral Venous Blood Culture - Final Staphylococcus Auricularis 07/21/17 19:00 Cerebral Spinal Fluid - Shunt-Csf CSF Culture - Preliminary Gram Negative Andre 07/21/17 11:15 Blood - Peripheral Venous Blood Culture - Preliminary NO GROWTH OBTAINED AFTER 24 HOURS, INCUBATION TO CONTINUE FOR 4 DAYS. 07/21/17 08:30 Blood - Central Line Blood Culture - Preliminary NO GROWTH OBTAINED AFTER 24 HOURS, INCUBATION TO CONTINUE FOR 4 DAYS. 07/11/17 20:30 Blood - Peripheral Venous Blood Culture - Preliminary Staphylococcus Coagulase Neg Laboratory Tests 07/22/17 07/23/17 07/23/17 05:00 05:15 05:15 WBC 21.0 H BUN 33 H Creat Clearance w eGFR > 60 Random Vancomycin 35.055 Assessment Assume infection of the TELECOMMUNICATIONS CONSULTANT shunt with ascending gram negative andre meningitis Also possible SCN in blood originally could have been related to infected shunt as well Plan Continue current antibiotics Await final cultures Management of intrabdominal collection IR drainage Santy brown Problem List - Problems (1) Sepsis Code(s): A41.9 - SEPSIS, UNSPECIFIED ORGANISM (2) UTI (urinary tract infection) Code(s): N39.0 - URINARY TRACT INFECTION, SITE NOT SPECIFIED (3) Respiratory failure Code(s): J96.90 - RESPIRATORY FAILURE, UNSP, UNSP W HYPOXIA OR HYPERCAPNIA (4) Gram-positive bacteremia Code(s): R78.81 - BACTEREMIA
[2017-07-23 07:34] LABS: TOTAL CELLS COUNTED 100
[2017-07-23] MEDS ORDERED: POTASSIUM PHOSPHATE 30 MM in DEXTROSE 5%-WATER - 250 ML IVPB ONE (08:15)
[2017-07-23] MEDS ORDERED: PT OWN MED DRAWER 7, Y5N ONE ×3 (10:03→16:44)
[2017-07-23] MEDS: PANTOPRAZOLE SODIUM 100 ML IVPB SCH (10:14)
--- NOTE | 2017-07-23 10:25 | PN ---
Progress Note, Physician History of Present Illness: 22 year old male pmh cerebral palsy, hydrocephalus, developmental delays, blindness, seizure disorder, club feet, myelomeningocele and ARNP shunt initially admitted for b/l pneumonia/SBO was initially improving clinically and sent to the floors. Two days ago pt spiked fevers, had an elevation in WBC and declined clinically. CSF tap revealed numerous bacteria and WBCs (72988) 2/2 overt shunt infection. Culture grew gram (-) rods found to be Klebsiella pneumoniae. ID following for antibiotic management. - Current Medication List Current Medications: Active Medications Acetaminophen (Ofirmev Injection -) 1,000 mg IVPB Q8H [facility] Last Admin: 07/23/17 02:37 Dose: Not Given Albuterol/Ipratropium (Duoneb -) 1 amp NEB QIDR [facility] Last Admin: 07/23/17 06:00 Dose: 1 amp Heparin Sodium (Porcine) (Heparin -) 5,000 unit SQ TID [facility] Last Admin: 07/23/17 06:34 Dose: 5,000 unit Potassium Chloride 40 meq/ (Amino Acids) 1,020 mls @ 84 mls/hr IVPB Q12H [facility] Last Admin: 07/23/17 06:00 Dose: 84 mls/hr Metronidazole (Flagyl 500mg Premixed Ivpb -) 100 mls @ 100 mls/hr IVPB Q8H-IV [facility] Last Admin: 07/23/17 02:36 Dose: 100 mls/hr Propofol (Diprivan -) 100 mls @ 2.541 mls/hr IVPB TITR [facility]; 5 MCG/KG/MIN PRN Reason: Protocol Last Titration: 07/23/17 09:50 Dose: 20 mcg/kg/min Meropenem 2 gm/ Dextrose 100 mls @ 100 mls/hr IVPB Q8H [facility] PRN Reason: Protocol Last Admin: 07/23/17 06:52 Dose: 100 mls/hr Pantoprazole Sodium (Protonix 40mg Ivpb (Pre-Docked)) 100 mls @ 200 mls/hr IVPB DAILY [facility] Last Admin: 07/23/17 10:14 Dose: 200 mls/hr Potassium Phosphate 30 mm/ (Dextrose) 260 mls @ 62.5 mls/hr IVPB ONCE ONE Stop: 07/23/17 12:24 Last Admin: 07/23/17 10:05 Dose: 62.5 mls/hr Insulin Aspart (Novolog Vial Sliding Scale -) 1 vial SQ AM [facility] PRN Reason: Protocol Last Admin: 07/23/17 06:47 Dose: Not Given Metoclopramide HCl (Reglan Injection -) 10 mg IVPB Q6H [facility] Last Admin: 07/23/17 03:09 Dose: 10 mg Multivitamins/Minerals (Infuvite Adult -) 10 ml IV DAILY [facility] Last Admin: 07/22/17 17:56 Dose: 10 ml Phenobarbital (Phenobarbital Injection -) 150 mg IVPB HS [facility] Last Admin: 07/22/17 21:30 Dose: 150 mg Polyethylene Glycol (Miralax (For Daily Use) -) 17 gm NGT BID [facility] Last Admin: 07/22/17 21:47 Dose: 17 grams - Objective Vital Signs: Vital Signs Temperature 97.4 F L 07/23/17 10:00 Pulse Rate 114 H 07/23/17 10:00 Respiratory Rate 36 H 07/23/17 10:00 Blood Pressure 113/79 07/23/17 10:00 O2 Sat by Pulse Oximetry (%) 100 07/23/17 09:00 Constitutional: Yes: Obese Eyes: Yes: Conjunctiva Clear HENT: Yes: Atraumatic, Other (macrocephalic) Neck: Yes: Trachea Midline Cardiovascular: Yes: Tachycardia, S1, S2. No: Gallop, Murmur, Rub Respiratory: Yes: Regular, Intubated, Mechanically Ventilated, Rhonchi (course) , Other Gastrointestinal: Yes: Abdomen, Obese, Distention, Hypoactive Bowel Sounds Musculoskeletal: Yes: Other (Club feet b/l) Extremities: Yes: Deformity (Club feet b/l) Edema: No Peripheral Pulses WNL: Yes Integumentary: Yes: WNL Wound/Incision: Yes: Clean/Dry, Well Approximated, Draining (CRISTIAN draining purulent fluid, ARNP Shunt exteriorized draining yellow fluid with sediment) Neurological: No: Alert, Oriented Psychiatric: No: Alert, Oriented Labs: CBC, BMP 07/23/17 05:15 07/23/17 05:15 INR, PTT INR 1.63 (0.82-1.09) H 07/22/17 11:00 Problem List - Problems (1) Infection of ventriculoperitoneal shunt Code(s): T85.730A - I/I REACT D/T VENTRICULAR INTRACRANIAL SHUNT, INIT (2) Sepsis Code(s): A41.9 - SEPSIS, UNSPECIFIED ORGANISM Assessment/Plan 22 year old male pmh cerebral palsy, developmental delays, blindness, seizure, myelomeningocele, managed by ID for ventriculoperitoneal shunt infection with intraabdominal fluid collection ARNP Shunt Infection: CSF grew gram (-) rods (klebsiella pneumoniae), likely ascending infx -neurosurg exteriorized shunt -IR inserted CRISTIAN drain into the abdominal cavity, draining purulent fluid -continue flagyl 500 IV Q8 and Meropenem 2g IV Q8, hold vanco -trend WBC, monitor BP -ESR/CRP
--- NOTE | 2017-07-23 10:54 | CON.GU ---
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 There is external compression of his ureters. Creatinine is normal. urine is draining well into a perez - History Source History Provided By: Medical Record Limitations to Obtaining History: Clinical Condition - Past Medical History DIRECTOR MARKETING: Yes: Seizure, Other (Macrocephaly) Renal/: No: Renal Failure, Renal Inusuff, BPH, Cancer, Hematuria, Hemodialysis , Neurogenic Bladder, Renal Calculi, UTI, Other Musculoskeletal: Yes: Paraplegia - Alcohol/Substance Use Hx Alcohol Use: No - Smoking History Smoking history: Unknown if ever smoked Have you smoked in the past 12 months: No Home Medications - Allergies Allergies/Adverse Reactions: Allergies Allergy/AdvReac Type Severity Reaction Status Date / Time No Known Allergies Allergy Verified 07/29/16 20:28 - Home Medications Home Medications: Ambulatory Orders Calcium Carbonate 1 gm PO DAILY 07/29/16 Carbamazepine 700 mg PO TID 07/29/16 Mineral Oil/Petrolatum,White [Artificial Tears Eye Ointment] 3.5 gm OP HS Multivitamin [Poly-Vitamin] 10 ml PO DAILY 07/29/16 Phenobarbital Liquid - [Phenobarbital Liquid 20 MG/5 ML -] 97.2 mg PO AM Phenobarbital Liquid - [Phenobarbital Liquid 20 MG/5 ML -] 148.8 mg PO HS Polyethylene Glycol 3350 [Gavilax] 17 gm PO HS 07/29/16 Physical Exam- Vital Signs: Vital Signs Temperature 97.4 F L 07/23/17 10:00 Pulse Rate 114 H 07/23/17 10:00 Respiratory Rate 36 H 07/23/17 10:00 Blood Pressure 113/79 07/23/17 10:00 O2 Sat by Pulse Oximetry (%) 100 07/23/17 09:00 Renal/: Yes: Perez Present. No: Bladder Distention, CVA Tenderness - Left, CVA Tenderness - Right, Hematuria Labs: CBC, BMP 07/23/17 05:15 07/23/17 05:15 Imaging - Results Cat Scan: Report Reviewed Problem List - Problems (1) Hydronephrosis Assessment/Plan: due to external compression. recommend perc drainage of pelvic collections. Code(s): N13.30 - UNSPECIFIED HYDRONEPHROSIS
[2017-07-23] MEDS: MULTIVIT INJ. ADULT COMBO WITH VIT K 1 COMBO 10 ML VIAL IV SCH ×2 (11:45→16:50)
[2017-07-23] MEDS: POLYETHYLENE GLYCOL 3350 119 GM BTL NGT SCH (11:49)
--- NOTE | 2017-07-23 12:13 | PN ---
Progress Note (short form) - Note Progress Note: Anesthesia post op note. POD#1, S/P Exteriorization of distal end of CATH LAB TECHNOLOGIST shunt, under GETA. Pat seen and examied. VSS. Continued on antibiotics. Intubated , sedated. No post anesthesia complications. signed off.
--- NOTE | 2017-07-23 12:49 | PN ---
Teaching Attending Note Name of Resident: Bucky Harvey ATTENDING PHYSICIAN STATEMENT I saw and evaluated the patient. I reviewed the resident's note and discussed the case with the resident. I agree with the resident's findings and plan as documented. SUBJECTIVE: Pt seen and examined in the ICU. Remains intubated, awake on low dose propofol gtt.. CSF cultures growing klebsiella pneumonia. No fevers recorded. OBJECTIVE: Last Vital Signs Temp Pulse Resp BP Pulse Ox 98.7 F 107 H 36 H 120/58 100 07/23/17 12:00 07/23/17 12:00 07/23/17 12:00 07/23/17 12:00 07/23/17 09:00 Intake & Output 07/20/17 07/21/17 07/22/17 07/23/17 23:59 23:59 23:59 23:59 Intake Total 3274 3241 3275.2 1418 Output Total 1450 3550 3900 2450 Balance 1824 -309 -624.8 -1032 Weight 186 lb 11.2 oz 184 lb 12.8 oz 187 lb 6.287 oz Gen: intubated, sedated Heart: tachycardic, regular Lung: scattered rhonchi Abd: soft, +purulent drainage from pigtail and VPS externalization Ext: contracted, + edema CBC, BMP 07/23/17 05:15 07/23/17 05:15 Active Medications Acetaminophen (Ofirmev Injection -) 1,000 mg IVPB Q8H [facility] Last Admin: 07/23/17 12:18 Dose: Not Given Albuterol/Ipratropium (Duoneb -) 1 amp NEB QIDR [facility] Last Admin: 07/23/17 11:03 Dose: 1 amp Heparin Sodium (Porcine) (Heparin -) 5,000 unit SQ TID [facility] Last Admin: 07/23/17 06:34 Dose: 5,000 unit Potassium Chloride 40 meq/ (Amino Acids) 1,020 mls @ 84 mls/hr IVPB Q12H [facility] Last Admin: 07/23/17 06:00 Dose: 84 mls/hr Metronidazole (Flagyl 500mg Premixed Ivpb -) 100 mls @ 100 mls/hr IVPB Q8H-IV [facility] Last Admin: 07/23/17 11:38 Dose: 100 mls/hr Propofol (Diprivan -) 100 mls @ 2.541 mls/hr IVPB TITR [facility]; 5 MCG/KG/MIN PRN Reason: Protocol Last Titration: 07/23/17 12:21 Dose: 59.04 mcg/kg/min Meropenem 2 gm/ Dextrose 100 mls @ 100 mls/hr IVPB Q8H [facility] PRN Reason: Protocol Last Admin: 07/23/17 06:52 Dose: 100 mls/hr Pantoprazole Sodium (Protonix 40mg Ivpb (Pre-Docked)) 100 mls @ 200 mls/hr IVPB DAILY [facility] Last Admin: 07/23/17 10:14 Dose: 200 mls/hr Insulin Aspart (Novolog Vial Sliding Scale -) 1 vial SQ AM [facility] PRN Reason: Protocol Last Admin: 07/23/17 06:47 Dose: Not Given Metoclopramide HCl (Reglan Injection -) 10 mg IVPB Q6H [facility] Last Admin: 07/23/17 11:39 Dose: 10 mg Multivitamins/Minerals (Infuvite Adult -) 10 ml IV DAILY [facility] Last Admin: 07/23/17 11:45 Dose: Not Given Phenobarbital (Phenobarbital Injection -) 150 mg IVPB HS [facility] Last Admin: 07/22/17 21:30 Dose: 150 mg Polyethylene Glycol (Miralax (For Daily Use) -) 17 gm NGT BID [facility] Last Admin: 07/23/17 11:49 Dose: Not Given ASSESSMENT AND PLAN: Acute Respiratory Failure Pseudomonas Meningitis/Ventriculitis Intra-Abdominal Abscess s/p pigtail drainage Likely Aspiration Pneumonia Small Bowel Obstruction Staph Bacteremia UTI Sepsis Lactic Acidosis resolved Cerebral Palsy Macrocephaly/Hydrocephalus s/p [employer] shunt - antibiotics per ID - monitor drain output - replete lytes - continue antiepileptics - DVT/GI prophylaxis - continue ICU monitoring - discussed with neurosurgery, given extent of ventriculitis, pt may need endoscopic washout, will initiate transfer to tertiary care critical care time spent in reviewing chart, evaluating patient and formulating plan 35 min
--- NOTE | 2017-07-23 13:42 | PN ---
Progress Note (short form) - Note Progress Note: S/P exteriorization of distal end of [employer] shunt and drainage of abdomen yesterday by Neurosurgery Copious pus In ICU Vital Signs Period Temp Pulse Resp BP Sys/Lyons Pulse Ox Last 24 Hr 97.1 F-99.2 F 102-119 23-38 108-145/54-79 99-100 Abd soft, drain + purulent drainage [employer] shunt: purulent drainage CBC, BMP 07/23/17 05:15 07/23/17 05:15 + Kelbsiella from abdomen and [employer] shunt IV Antibiotics Septic/Critical Continue ICU care Problem List - Problems (1) Distended abdomen Code(s): R14.0 - ABDOMINAL DISTENSION (GASEOUS) (2) SBO (small bowel obstruction) Code(s): K56.69 - OTHER INTESTINAL OBSTRUCTION
[2017-07-23] MEDS: PROPOFOL 100 ML IVPB SCH ×2 (15:41→17:38)
--- NOTE | 2017-07-23 15:46 | PN ---
Progress Note (short form) - Note Progress Note: Patient with fevers and leuocytosis who was found to have gross meningitis after shunt tap (WBC > 12,000). Culture plates grew Gram negative rods (now known to be Klebsiella) in less than 24 hours. After consultation with Infectious Diseases, it was agreed that externalization of the infected shunt would be required. This was performed yesterday and the drainage is grossly purulent. CT suggests ventriculitis. I am very concerned that this is a life threatening infection which will likely not respond to antibiotics alone. He will likely require shunt removal, External ventricular drainage, prolonged antibiotic therapy, possible intraventricular antibiotics or ventricular irrigation with endoscopic assistance and continuous ICU support. These resources are not all immediately available at this institution. After discussion with other members of the care team, I support the current consideration of transferring the patient to a higher level of care.
--- NOTE | 2017-07-23 16:18 | DS ---
Physical Exam: HOSPITAL COURSE: Date of Admission:07/11/17 Date of Discharge: 07/23/17 Laboratory Tests 07/11/17 07/11/17 07/11/17 20:30 20:30 20:30 WBC 25.0 H D RBC 5.90 H D Hgb 17.8 H D Hct 53.2 H D MCV 90.1 MCH 30.2 MCHC 33.5 RDW 15.4 Plt Count No Result Required. MPV Y Total Counted 100 Neutrophils % Y Neutrophils % (Manual) 60 Band Neuts % (Manual) 30 H Lymphocytes % Y Lymphocytes % (Manual) 2 L Monocytes % Monocytes % (Manual) 1 L Eosinophils % Eosinophils % (Manual) Basophils % Basophils % (Manual) Myelocytes % (Man) 2 Platelet Estimate Adequate Platelet Comment No clotting detected RBC Morphology ESR INR Cancelled PTT (Actin FS) Cancelled Puncture Site ABG pH ABG pCO2 at Pt Temp ABG pO2 at Pt Temp ABG HCO3 ABG O2 Sat (Measured) ABG O2 Content ABG Base Excess Bernabe Test Carboxyhemoglobin Methemoglobin O2 Delivery Device Oxygen Flow Rate Vent Mode Vent Rate Mechanical Rate PEEP Pressure Support Vent Sodium Cancelled Potassium Cancelled Chloride Cancelled Carbon Dioxide Cancelled Anion Gap Cancelled BUN Cancelled Creatinine Cancelled Creat Clearance w eGFR Cancelled POC Glucometer Random Glucose Cancelled Lactic Acid Calcium Cancelled Phosphorus Magnesium Total Bilirubin Cancelled AST Cancelled ALT Cancelled Alkaline Phosphatase Cancelled Creatine Kinase Cancelled Troponin I Cancelled C-Reactive Protein Total Protein Cancelled Albumin Cancelled Urine Color Urine Appearance Urine pH Ur Specific [place] Urine Protein Urine Glucose (UA) Urine Ketones Urine Blood Urine Nitrite Urine Bilirubin Urine Urobilinogen Ur Leukocyte Esterase Urine RBC Urine WBC Ur Epithelial Cells Urine Bacteria Hyaline Casts Urine Mucus CSF Appearance CSF Color CSF WBC CSF RBC CSF Neutrophils CSF Lymphocytes CSF Monocytes CSF Glucose CSF Total Protein Random Vancomycin Vancomycin Pre-Dose Acetone, Qual Blood Type Antibody Screen Spec Expiration Date 07/11/17 07/11/17 07/11/17 20:30 20:30 20:30 WBC RBC Hgb Hct MCV MCH MCHC RDW Plt Count MPV Total Counted Neutrophils % Neutrophils % (Manual) Band Neuts % (Manual) Lymphocytes % Lymphocytes % (Manual) Monocytes % Monocytes % (Manual) Eosinophils % Eosinophils % (Manual) Basophils % Basophils % (Manual) Myelocytes % (Man) Platelet Estimate Platelet Comment RBC Morphology ESR INR PTT (Actin FS) Puncture Site ABG pH ABG pCO2 at Pt Temp ABG pO2 at Pt Temp ABG HCO3 ABG O2 Sat (Measured) ABG O2 Content ABG Base Excess Bernabe Test Carboxyhemoglobin Methemoglobin O2 Delivery Device Oxygen Flow Rate Vent Mode Vent Rate Mechanical Rate PEEP Pressure Support Vent Sodium Potassium Chloride Carbon Dioxide Anion Gap BUN Creatinine Creat Clearance w eGFR POC Glucometer Random Glucose Lactic Acid 5.7 H* Calcium Phosphorus Magnesium Total Bilirubin AST ALT Alkaline Phosphatase Creatine Kinase Troponin I C-Reactive Protein Total Protein Albumin Urine Color Urine Appearance Urine pH Ur Specific [place] Urine Protein Urine Glucose (UA) Urine Ketones Urine Blood Urine Nitrite Urine Bilirubin Urine Urobilinogen Ur Leukocyte Esterase Urine RBC Urine WBC Ur Epithelial Cells Urine Bacteria Hyaline Casts Urine Mucus CSF Appearance CSF Color CSF WBC CSF RBC CSF Neutrophils CSF Lymphocytes CSF Monocytes CSF Glucose CSF Total Protein Random Vancomycin Vancomycin Pre-Dose Acetone, Qual Blood Type Cancelled A NEGATIVE Antibody Screen Cancelled Spec Expiration Date Cancelled 07/11/17 07/11/17 07/11/17 20:48 21:20 21:20 WBC RBC Hgb Hct MCV MCH MCHC RDW Plt Count MPV Total Counted Neutrophils % Neutrophils % (Manual) Band Neuts % (Manual) Lymphocytes % Lymphocytes % (Manual) Monocytes % Monocytes % (Manual) Eosinophils % Eosinophils % (Manual) Basophils % Basophils % (Manual) Myelocytes % (Man) Platelet Estimate Platelet Comment RBC Morphology ESR INR 1.66 H PTT (Actin FS) 30.0 Puncture Site ABG pH ABG pCO2 at Pt Temp ABG pO2 at Pt Temp ABG HCO3 ABG O2 Sat (Measured) ABG O2 Content ABG Base Excess Bernabe Test Carboxyhemoglobin Methemoglobin O2 Delivery Device Oxygen Flow Rate Vent Mode Vent Rate Mechanical Rate PEEP Pressure Support Vent Sodium 130 L Potassium 3.8 Chloride 91 L D Carbon Dioxide 19 L D Anion Gap 20 H BUN 18 D Creatinine 1.0 D Creat Clearance w eGFR > 60 POC Glucometer Random Glucose 538 H* D Lactic Acid Calcium 7.7 L Phosphorus Magnesium Total Bilirubin 0.7 D AST 10 L D ALT 20 Alkaline Phosphatase 89 D Creatine Kinase Troponin I C-Reactive Protein Total Protein 7.2 Albumin 2.6 L Urine Color Yellow Urine Appearance Cloudy Urine pH 5.0 Ur Specific [place] 1.020 Urine Protein 2+ H Urine Glucose (UA) Negative Urine Ketones Negative Urine Blood 1+ H Urine Nitrite Negative Urine Bilirubin 2.0 Urine Urobilinogen Negative Ur Leukocyte Esterase 1+ H Urine RBC 34 Urine WBC 114 Ur Epithelial Cells Many Urine Bacteria Moderate Hyaline Casts 8 Urine Mucus Rare CSF Appearance CSF Color CSF WBC CSF RBC CSF Neutrophils CSF Lymphocytes CSF Monocytes CSF Glucose CSF Total Protein Random Vancomycin Vancomycin Pre-Dose Acetone, Qual Blood Type Antibody Screen Spec Expiration Date 07/11/17 07/11/17 07/11/17 21:20 21:20 21:20 WBC RBC Hgb Hct MCV MCH MCHC RDW Plt Count MPV Total Counted Neutrophils % Neutrophils % (Manual) Band Neuts % (Manual) Lymphocytes % Lymphocytes % (Manual) Monocytes % Monocytes % (Manual) Eosinophils % Eosinophils % (Manual) Basophils % Basophils % (Manual) Myelocytes % (Man) Platelet Estimate Platelet Comment RBC Morphology ESR INR PTT (Actin FS) Puncture Site ABG pH ABG pCO2 at Pt Temp ABG pO2 at Pt Temp ABG HCO3 ABG O2 Sat (Measured) ABG O2 Content ABG Base Excess Bernabe Test Carboxyhemoglobin Methemoglobin O2 Delivery Device Oxygen Flow Rate Vent Mode Vent Rate Mechanical Rate PEEP Pressure Support Vent Sodium Potassium Chloride Carbon Dioxide Anion Gap BUN Creatinine Creat Clearance w eGFR POC Glucometer Random Glucose Lactic Acid Calcium Phosphorus Magnesium Total Bilirubin AST ALT Alkaline Phosphatase Creatine Kinase 51 Troponin I < 0.02 C-Reactive Protein Total Protein Albumin Urine Color Urine Appearance Urine pH Ur Specific [place] Urine Protein Urine Glucose (UA) Urine Ketones Urine Blood Urine Nitrite Urine Bilirubin Urine Urobilinogen Ur Leukocyte Esterase Urine RBC Urine WBC Ur Epithelial Cells Urine Bacteria Hyaline Casts Urine Mucus CSF Appearance CSF Color CSF WBC CSF RBC CSF Neutrophils CSF Lymphocytes CSF Monocytes CSF Glucose CSF Total Protein Random Vancomycin Vancomycin Pre-Dose Acetone, Qual Negative Blood Type A NEGATIVE Antibody Screen Negative Spec Expiration Date 07/12/17 07/12/17 07/12/17 01:01 01:02 01:02 WBC 7.7 D RBC 5.05 Hgb 15.3 D Hct 46.0 MCV 91.1 MCH 30.2 MCHC 33.1 RDW 15.0 Plt Count 248 MPV 7.9 D Total Counted Neutrophils % Neutrophils % (Manual) Band Neuts % (Manual) Lymphocytes % Lymphocytes % (Manual) Monocytes % Monocytes % (Manual) Eosinophils % Eosinophils % (Manual) Basophils % Basophils % (Manual) Myelocytes % (Man) Platelet Estimate Platelet Comment RBC Morphology ESR INR PTT (Actin FS) Puncture Site ABG pH ABG pCO2 at Pt Temp ABG pO2 at Pt Temp ABG HCO3 ABG O2 Sat (Measured) ABG O2 Content ABG Base Excess Bernabe Test Carboxyhemoglobin Methemoglobin O2 Delivery Device Oxygen Flow Rate Vent Mode Vent Rate Mechanical Rate PEEP Pressure Support Vent Sodium 143 Potassium 4.2 Chloride 108 H D Carbon Dioxide 22 Anion Gap 13 BUN 17 Creatinine 0.5 L D Creat Clearance w eGFR > 60 POC Glucometer Random Glucose 97 D Lactic Acid 2.9 H* Calcium 7.7 L Phosphorus 2.8 Magnesium 2.0 D Total Bilirubin 0.7 AST 19 D ALT 18 Alkaline Phosphatase 90 Creatine Kinase Troponin I C-Reactive Protein Total Protein 6.6 Albumin 2.8 L Urine Color Urine Appearance Urine pH Ur Specific [place] Urine Protein Urine Glucose (UA) Urine Ketones Urine Blood Urine Nitrite Urine Bilirubin Urine Urobilinogen Ur Leukocyte Esterase Urine RBC Urine WBC Ur Epithelial Cells Urine Bacteria Hyaline Casts Urine Mucus CSF Appearance CSF Color CSF WBC CSF RBC CSF Neutrophils CSF Lymphocytes CSF Monocytes CSF Glucose CSF Total Protein Random Vancomycin Vancomycin Pre-Dose Acetone, Qual Blood Type Antibody Screen Spec Expiration Date 07/12/17 07/12/17 07/12/17 01:02 01:33 02:55 WBC RBC Hgb Hct MCV MCH MCHC RDW Plt Count MPV Total Counted Neutrophils % Neutrophils % (Manual) Band Neuts % (Manual) Lymphocytes % Lymphocytes % (Manual) Monocytes % Monocytes % (Manual) Eosinophils % Eosinophils % (Manual) Basophils % Basophils % (Manual) Myelocytes % (Man) Platelet Estimate Platelet Comment RBC Morphology ESR INR 1.97 H PTT (Actin FS) Puncture Site Right radial ABG pH 7.31 L ABG pCO2 at Pt Temp 44.6 ABG pO2 at Pt Temp 101.0 H ABG HCO3 21.9 L ABG O2 Sat (Measured) 97.5 ABG O2 Content 21.8 ABG Base Excess -4.0 L Bernabe Test Positive Carboxyhemoglobin 1.4 Methemoglobin 0.9 O2 Delivery Device Nonrebrether mask Oxygen Flow Rate 100% Vent Mode Vent Rate Mechanical Rate PEEP 0.0 Pressure Support Vent Sodium Potassium Chloride Carbon Dioxide Anion Gap BUN Creatinine Creat Clearance w eGFR POC Glucometer 117.79010 Random Glucose Lactic Acid Calcium Phosphorus Magnesium Total Bilirubin AST ALT Alkaline Phosphatase Creatine Kinase Troponin I C-Reactive Protein Total Protein Albumin Urine Color Urine Appearance Urine pH Ur Specific [place] Urine Protein Urine Glucose (UA) Urine Ketones Urine Blood Urine Nitrite Urine Bilirubin Urine Urobilinogen Ur Leukocyte Esterase Urine RBC Urine WBC Ur Epithelial Cells Urine Bacteria Hyaline Casts Urine Mucus CSF Appearance CSF Color CSF WBC CSF RBC CSF Neutrophils CSF Lymphocytes CSF Monocytes CSF Glucose CSF Total Protein Random Vancomycin Vancomycin Pre-Dose Acetone, Qual Blood Type Antibody Screen Spec Expiration Date 07/12/17 07/12/17 07/12/17 05:15 07:32 08:30 WBC 3.9 L D RBC 5.35 Hgb 16.2 Hct 48.3 MCV 90.2 MCH 30.2 MCHC 33.5 RDW 14.8 Plt Count 270 MPV 8.0 Total Counted Neutrophils % 87.9 H Neutrophils % (Manual) Band Neuts % (Manual) Lymphocytes % 6.4 L D Lymphocytes % (Manual) Monocytes % 5.6 Monocytes % (Manual) Eosinophils % 0.1 D Eosinophils % (Manual) Basophils % 0.0 Basophils % (Manual) Myelocytes % (Man) Platelet Estimate Platelet Comment RBC Morphology ESR INR PTT (Actin FS) Puncture Site ABG pH ABG pCO2 at Pt Temp ABG pO2 at Pt Temp ABG HCO3 ABG O2 Sat (Measured) ABG O2 Content ABG Base Excess Bernabe Test Carboxyhemoglobin Methemoglobin O2 Delivery Device Oxygen Flow Rate Vent Mode Vent Rate Mechanical Rate PEEP Pressure Support Vent Sodium Potassium Chloride Carbon Dioxide Anion Gap BUN Creatinine Creat Clearance w eGFR POC Glucometer 121.20006 Random Glucose Lactic Acid Calcium Phosphorus Magnesium Total Bilirubin AST ALT Alkaline Phosphatase Creatine Kinase Troponin I C-Reactive Protein 40.0 H Total Protein Albumin Urine Color Urine Appearance Urine pH Ur Specific [place] Urine Protein Urine Glucose (UA) Urine Ketones Urine Blood Urine Nitrite Urine Bilirubin Urine Urobilinogen Ur Leukocyte Esterase Urine RBC Urine WBC Ur Epithelial Cells Urine Bacteria Hyaline Casts Urine Mucus CSF Appearance CSF Color CSF WBC CSF RBC CSF Neutrophils CSF Lymphocytes CSF Monocytes CSF Glucose CSF Total Protein Random Vancomycin Vancomycin Pre-Dose Acetone, Qual Blood Type Antibody Screen Spec Expiration Date 07/12/17 07/12/17 07/12/17 09:40 11:44 18:11 WBC RBC Hgb Hct MCV MCH MCHC RDW Plt Count MPV Total Counted Neutrophils % Neutrophils % (Manual) Band Neuts % (Manual) Lymphocytes % Lymphocytes % (Manual) Monocytes % Monocytes % (Manual) Eosinophils % Eosinophils % (Manual) Basophils % Basophils % (Manual) Myelocytes % (Man) Platelet Estimate Platelet Comment RBC Morphology ESR INR PTT (Actin FS) Puncture Site ABG pH ABG pCO2 at Pt Temp ABG pO2 at Pt Temp ABG HCO3 ABG O2 Sat (Measured) ABG O2 Content ABG Base Excess Bernabe Test Carboxyhemoglobin Methemoglobin O2 Delivery Device Oxygen Flow Rate Vent Mode Vent Rate Mechanical Rate PEEP Pressure Support Vent Sodium Potassium Chloride Carbon Dioxide Anion Gap BUN Creatinine Creat Clearance w eGFR POC Glucometer 142.93495 98.88493 Random Glucose Lactic Acid 3.4 H* Calcium Phosphorus Magnesium Total Bilirubin AST ALT Alkaline Phosphatase Creatine Kinase Troponin I C-Reactive Protein Total Protein Albumin Urine Color Urine Appearance Urine pH Ur Specific [place] Urine Protein Urine Glucose (UA) Urine Ketones Urine Blood Urine Nitrite Urine Bilirubin Urine Urobilinogen Ur Leukocyte Esterase Urine RBC Urine WBC Ur Epithelial Cells Urine Bacteria Hyaline Casts Urine Mucus CSF Appearance CSF Color CSF WBC CSF RBC CSF Neutrophils CSF Lymphocytes CSF Monocytes CSF Glucose CSF Total Protein Random Vancomycin Vancomycin Pre-Dose Acetone, Qual Blood Type Antibody Screen Spec Expiration Date 07/12/17 07/13/17 07/13/17 22:14 05:15 05:15 WBC 6.9 D RBC 4.23 D Hgb 12.8 D Hct 37.8 D MCV 89.5 MCH 30.3 MCHC 33.9 RDW 14.5 Plt Count 236 MPV 7.8 Total Counted Neutrophils % Neutrophils % (Manual) Band Neuts % (Manual) Lymphocytes % Lymphocytes % (Manual) Monocytes % Monocytes % (Manual) Eosinophils % Eosinophils % (Manual) Basophils % Basophils % (Manual) Myelocytes % (Man) Platelet Estimate Platelet Comment RBC Morphology ESR 80 H INR PTT (Actin FS) Puncture Site ABG pH ABG pCO2 at Pt Temp ABG pO2 at Pt Temp ABG HCO3 ABG O2 Sat (Measured) ABG O2 Content ABG Base Excess Bernabe Test Carboxyhemoglobin Methemoglobin O2 Delivery Device Oxygen Flow Rate Vent Mode Vent Rate Mechanical Rate PEEP Pressure Support Vent Sodium Potassium Chloride Carbon Dioxide Anion Gap BUN Creatinine Creat Clearance w eGFR POC Glucometer 109.90675 Random Glucose Lactic Acid Calcium Phosphorus Magnesium Total Bilirubin AST ALT Alkaline Phosphatase Creatine Kinase Troponin I C-Reactive Protein Total Protein Albumin Urine Color Urine Appearance Urine pH Ur Specific [place] Urine Protein Urine Glucose (UA) Urine Ketones Urine Blood Urine Nitrite Urine Bilirubin Urine Urobilinogen Ur Leukocyte Esterase Urine RBC Urine WBC Ur Epithelial Cells Urine Bacteria Hyaline Casts Urine Mucus CSF Appearance CSF Color CSF WBC CSF RBC CSF Neutrophils CSF Lymphocytes CSF Monocytes CSF Glucose CSF Total Protein Random Vancomycin Vancomycin Pre-Dose Acetone, Qual Blood Type Antibody Screen Spec Expiration Date 07/13/17 07/13/17 07/13/17 05:15 05:15 05:15 WBC RBC Hgb Hct MCV MCH MCHC RDW Plt Count MPV Total Counted Neutrophils % Neutrophils % (Manual) Band Neuts % (Manual) Lymphocytes % Lymphocytes % (Manual) Monocytes % Monocytes % (Manual) Eosinophils % Eosinophils % (Manual) Basophils % Basophils % (Manual) Myelocytes % (Man) Platelet Estimate Platelet Comment RBC Morphology ESR INR PTT (Actin FS) 49.3 H D Puncture Site ABG pH ABG pCO2 at Pt Temp ABG pO2 at Pt Temp ABG HCO3 ABG O2 Sat (Measured) ABG O2 Content ABG Base Excess Bernabe Test Carboxyhemoglobin Methemoglobin O2 Delivery Device Oxygen Flow Rate Vent Mode Vent Rate Mechanical Rate PEEP Pressure Support Vent Sodium 144 Potassium 3.2 L D Chloride 112 H Carbon Dioxide 27 D Anion Gap 5 L BUN 14 Creatinine 0.3 L D Creat Clearance w eGFR POC Glucometer Random Glucose 85 Lactic Acid 1.2 Calcium 7.9 L Phosphorus 1.7 L D Magnesium 2.1 Total Bilirubin AST ALT Alkaline Phosphatase Creatine Kinase Troponin I C-Reactive Protein Total Protein Albumin Urine Color Urine Appearance Urine pH Ur Specific [place] Urine Protein Urine Glucose (UA) Urine Ketones Urine Blood Urine Nitrite Urine Bilirubin Urine Urobilinogen Ur Leukocyte Esterase Urine RBC Urine WBC Ur Epithelial Cells Urine Bacteria Hyaline Casts Urine Mucus CSF Appearance CSF Color CSF WBC CSF RBC CSF Neutrophils CSF Lymphocytes CSF Monocytes CSF Glucose CSF Total Protein Random Vancomycin Vancomycin Pre-Dose Acetone, Qual Blood Type Antibody Screen Spec Expiration Date 07/13/17 07/13/17 07/13/17 05:27 13:47 16:51 WBC RBC Hgb Hct MCV MCH MCHC RDW Plt Count MPV Total Counted Neutrophils % Neutrophils % (Manual) Band Neuts % (Manual) Lymphocytes % Lymphocytes % (Manual) Monocytes % Monocytes % (Manual) Eosinophils % Eosinophils % (Manual) Basophils % Basophils % (Manual) Myelocytes % (Man) Platelet Estimate Platelet Comment RBC Morphology ESR INR PTT (Actin FS) Puncture Site ABG pH ABG pCO2 at Pt Temp ABG pO2 at Pt Temp ABG HCO3 ABG O2 Sat (Measured) ABG O2 Content ABG Base Excess Bernabe Test Carboxyhemoglobin Methemoglobin O2 Delivery Device Oxygen Flow Rate Vent Mode Vent Rate Mechanical Rate PEEP Pressure Support Vent Sodium Potassium Chloride Carbon Dioxide Anion Gap BUN Creatinine Creat Clearance w eGFR POC Glucometer 103.22675 91.34908 80.28151 Random Glucose Lactic Acid Calcium Phosphorus Magnesium Total Bilirubin AST ALT Alkaline Phosphatase Creatine Kinase Troponin I C-Reactive Protein Total Protein Albumin Urine Color Urine Appearance Urine pH Ur Specific [place] Urine Protein Urine Glucose (UA) Urine Ketones Urine Blood Urine Nitrite Urine Bilirubin Urine Urobilinogen Ur Leukocyte Esterase Urine RBC Urine WBC Ur Epithelial Cells Urine Bacteria Hyaline Casts Urine Mucus CSF Appearance CSF Color CSF WBC CSF RBC CSF Neutrophils CSF Lymphocytes CSF Monocytes CSF Glucose CSF Total Protein Random Vancomycin Vancomycin Pre-Dose Acetone, Qual Blood Type Antibody Screen Spec Expiration Date 07/13/17 07/14/17 07/14/17 23:28 05:00 05:00 WBC RBC Hgb Hct MCV MCH MCHC RDW Plt Count MPV Total Counted Neutrophils % Neutrophils % (Manual) Band Neuts % (Manual) Lymphocytes % Lymphocytes % (Manual) Monocytes % Monocytes % (Manual) Eosinophils % Eosinophils % (Manual) Basophils % Basophils % (Manual) Myelocytes % (Man) Platelet Estimate Platelet Comment RBC Morphology ESR INR 1.51 H PTT (Actin FS) Puncture Site ABG pH ABG pCO2 at Pt Temp ABG pO2 at Pt Temp ABG HCO3 ABG O2 Sat (Measured) ABG O2 Content ABG Base Excess Bernabe Test Carboxyhemoglobin Methemoglobin O2 Delivery Device Oxygen Flow Rate Vent Mode Vent Rate Mechanical Rate PEEP Pressure Support Vent Sodium 150 H Potassium 2.7 L* Chloride 112 H Carbon Dioxide 26 Anion Gap 12 BUN 9 D Creatinine < 0.2 L D Creat Clearance w eGFR > 60 POC Glucometer 94.38155 Random Glucose 78 Lactic Acid Calcium 7.6 L Phosphorus 2.2 L D Magnesium Total Bilirubin 1.2 H D AST 12 L D ALT 12 D Alkaline Phosphatase 67 D Creatine Kinase Troponin I C-Reactive Protein Total Protein 5.6 L Albumin 2.2 L D Urine Color Urine Appearance Urine pH Ur Specific [place] Urine Protein Urine Glucose (UA) Urine Ketones Urine Blood Urine Nitrite Urine Bilirubin Urine Urobilinogen Ur Leukocyte Esterase Urine RBC Urine WBC Ur Epithelial Cells Urine Bacteria Hyaline Casts Urine Mucus CSF Appearance CSF Color CSF WBC CSF RBC CSF Neutrophils CSF Lymphocytes CSF Monocytes CSF Glucose CSF Total Protein Random Vancomycin Vancomycin Pre-Dose Acetone, Qual Blood Type Antibody Screen Spec Expiration Date 07/14/17 07/14/17 07/14/17 05:32 12:50 15:10 WBC RBC Hgb Hct MCV MCH MCHC RDW Plt Count MPV Total Counted Neutrophils % Neutrophils % (Manual) Band Neuts % (Manual) Lymphocytes % Lymphocytes % (Manual) Monocytes % Monocytes % (Manual) Eosinophils % Eosinophils % (Manual) Basophils % Basophils % (Manual) Myelocytes % (Man) Platelet Estimate Platelet Comment RBC Morphology ESR INR PTT (Actin FS) Puncture Site ABG pH ABG pCO2 at Pt Temp ABG pO2 at Pt Temp ABG HCO3 ABG O2 Sat (Measured) ABG O2 Content ABG Base Excess Bernabe Test Carboxyhemoglobin Methemoglobin O2 Delivery Device Oxygen Flow Rate Vent Mode Vent Rate Mechanical Rate PEEP Pressure Support Vent Sodium 149 H Potassium 2.9 L* Chloride 112 H Carbon Dioxide 24 Anion Gap 13 BUN 6 L D Creatinine < 0.2 L Creat Clearance w eGFR POC Glucometer 94.77042 99.70994 Random Glucose 79 Lactic Acid Calcium 8.0 L Phosphorus Magnesium 2.1 Total Bilirubin AST ALT Alkaline Phosphatase Creatine Kinase Troponin I C-Reactive Protein Total Protein Albumin Urine Color Urine Appearance Urine pH Ur Specific [place] Urine Protein Urine Glucose (UA) Urine Ketones Urine Blood Urine Nitrite Urine Bilirubin Urine Urobilinogen Ur Leukocyte Esterase Urine RBC Urine WBC Ur Epithelial Cells Urine Bacteria Hyaline Casts Urine Mucus CSF Appearance CSF Color CSF WBC CSF RBC CSF Neutrophils CSF Lymphocytes CSF Monocytes CSF Glucose CSF Total Protein Random Vancomycin Vancomycin Pre-Dose Acetone, Qual Blood Type Antibody Screen Spec Expiration Date 07/14/17 07/14/17 07/15/17 17:19 21:52 05:30 WBC 4.4 D RBC 3.82 L Hgb 11.4 L D Hct 34.0 L MCV 89.0 MCH 29.9 MCHC 33.6 RDW 14.4 Plt Count 201 MPV 7.6 Total Counted Neutrophils % 85.0 H Neutrophils % (Manual) Band Neuts % (Manual) Lymphocytes % 10.2 D Lymphocytes % (Manual) Monocytes % 2.5 L Monocytes % (Manual) Eosinophils % 1.8 D Eosinophils % (Manual) Basophils % 0.5 D Basophils % (Manual) Myelocytes % (Man) Platelet Estimate Platelet Comment RBC Morphology ESR INR PTT (Actin FS) Puncture Site ABG pH ABG pCO2 at Pt Temp ABG pO2 at Pt Temp ABG HCO3 ABG O2 Sat (Measured) ABG O2 Content ABG Base Excess Bernabe Test Carboxyhemoglobin Methemoglobin O2 Delivery Device Oxygen Flow Rate Vent Mode Vent Rate Mechanical Rate PEEP Pressure Support Vent Sodium Potassium Chloride Carbon Dioxide Anion Gap BUN Creatinine Creat Clearance w eGFR POC Glucometer 105.46817 142.18138 Random Glucose Lactic Acid Calcium Phosphorus Magnesium Total Bilirubin AST ALT Alkaline Phosphatase Creatine Kinase Troponin I C-Reactive Protein Total Protein Albumin Urine Color Urine Appearance Urine pH Ur Specific [place] Urine Protein Urine Glucose (UA) Urine Ketones Urine Blood Urine Nitrite Urine Bilirubin Urine Urobilinogen Ur Leukocyte Esterase Urine RBC Urine WBC Ur Epithelial Cells Urine Bacteria Hyaline Casts Urine Mucus CSF Appearance CSF Color CSF WBC CSF RBC CSF Neutrophils CSF Lymphocytes CSF Monocytes CSF Glucose CSF Total Protein Random Vancomycin Vancomycin Pre-Dose Acetone, Qual Blood Type Antibody Screen Spec Expiration Date 07/15/17 07/15/17 07/15/17 05:30 06:40 17:30 WBC RBC Hgb Hct MCV MCH MCHC RDW Plt Count MPV Total Counted Neutrophils % Neutrophils % (Manual) Band Neuts % (Manual) Lymphocytes % Lymphocytes % (Manual) Monocytes % Monocytes % (Manual) Eosinophils % Eosinophils % (Manual) Basophils % Basophils % (Manual) Myelocytes % (Man) Platelet Estimate Platelet Comment RBC Morphology ESR INR PTT (Actin FS) Puncture Site ABG pH ABG pCO2 at Pt Temp ABG pO2 at Pt Temp ABG HCO3 ABG O2 Sat (Measured) ABG O2 Content ABG Base Excess Bernabe Test Carboxyhemoglobin Methemoglobin O2 Delivery Device Oxygen Flow Rate Vent Mode Vent Rate Mechanical Rate PEEP Pressure Support Vent Sodium 146 H Potassium 5.1 D Chloride 110 H Carbon Dioxide 29 D Anion Gap 7 L BUN 7 Creatinine 0.3 L D Creat Clearance w eGFR > 60 POC Glucometer 120.31247 128.48737 Random Glucose 104 D Lactic Acid Calcium 7.9 L Phosphorus Magnesium Total Bilirubin 0.9 D AST 42 H D ALT 14 Alkaline Phosphatase 65 Creatine Kinase Troponin I C-Reactive Protein Total Protein 5.6 L Albumin 1.8 L Urine Color Urine Appearance Urine pH Ur Specific [place] Urine Protein Urine Glucose (UA) Urine Ketones Urine Blood Urine Nitrite Urine Bilirubin Urine Urobilinogen Ur Leukocyte Esterase Urine RBC Urine WBC Ur Epithelial Cells Urine Bacteria Hyaline Casts Urine Mucus CSF Appearance CSF Color CSF WBC CSF RBC CSF Neutrophils CSF Lymphocytes CSF Monocytes CSF Glucose CSF Total Protein Random Vancomycin Vancomycin Pre-Dose Acetone, Qual Blood Type Antibody Screen Spec Expiration Date 07/16/17 07/16/17 07/16/17 06:30 06:30 07:56 WBC 5.6 RBC 4.11 Hgb 12.2 Hct 36.7 MCV 89.2 MCH 29.8 MCHC 33.4 RDW 15.0 Plt Count 206 MPV 7.6 Total Counted Neutrophils % 75.4 Neutrophils % (Manual) Band Neuts % (Manual) Lymphocytes % 13.9 D Lymphocytes % (Manual) Monocytes % 8.2 D Monocytes % (Manual) Eosinophils % 2.3 Eosinophils % (Manual) Basophils % 0.2 Basophils % (Manual) Myelocytes % (Man) Platelet Estimate Platelet Comment RBC Morphology ESR INR PTT (Actin FS) Puncture Site ABG pH ABG pCO2 at Pt Temp ABG pO2 at Pt Temp ABG HCO3 ABG O2 Sat (Measured) ABG O2 Content ABG Base Excess Bernabe Test Carboxyhemoglobin Methemoglobin O2 Delivery Device Oxygen Flow Rate Vent Mode Vent Rate Mechanical Rate PEEP Pressure Support Vent Sodium 147 H Potassium 2.5 L* D Chloride 105 Carbon Dioxide 33 H Anion Gap 9 BUN 3 L D Creatinine 0.2 L D Creat Clearance w eGFR > 60 POC Glucometer 86 Random Glucose 74 D Lactic Acid Calcium 7.7 L Phosphorus Magnesium Total Bilirubin 0.8 AST 9 L D ALT 11 L D Alkaline Phosphatase 62 Creatine Kinase Troponin I C-Reactive Protein Total Protein 5.8 L Albumin 2.1 L Urine Color Urine Appearance Urine pH Ur Specific [place] Urine Protein Urine Glucose (UA) Urine Ketones Urine Blood Urine Nitrite Urine Bilirubin Urine Urobilinogen Ur Leukocyte Esterase Urine RBC Urine WBC Ur Epithelial Cells Urine Bacteria Hyaline Casts Urine Mucus CSF Appearance CSF Color CSF WBC CSF RBC CSF Neutrophils CSF Lymphocytes CSF Monocytes CSF Glucose CSF Total Protein Random Vancomycin Vancomycin Pre-Dose Acetone, Qual Blood Type Antibody Screen Spec Expiration Date 07/16/17 07/16/17 07/17/17 09:30 17:58 01:29 WBC RBC Hgb Hct MCV MCH MCHC RDW Plt Count MPV Total Counted Neutrophils % Neutrophils % (Manual) Band Neuts % (Manual) Lymphocytes % Lymphocytes % (Manual) Monocytes % Monocytes % (Manual) Eosinophils % Eosinophils % (Manual) Basophils % Basophils % (Manual) Myelocytes % (Man) Platelet Estimate Platelet Comment RBC Morphology ESR INR PTT (Actin FS) Puncture Site ABG pH ABG pCO2 at Pt Temp ABG pO2 at Pt Temp ABG HCO3 ABG O2 Sat (Measured) ABG O2 Content ABG Base Excess Bernabe Test Carboxyhemoglobin Methemoglobin O2 Delivery Device Oxygen Flow Rate Vent Mode Vent Rate Mechanical Rate PEEP Pressure Support Vent Sodium 143 Cancelled Potassium 2.9 L* Cancelled Chloride 103 Cancelled Carbon Dioxide 31 Cancelled Anion Gap 9 Cancelled BUN 2 L* D Cancelled Creatinine 0.3 L D Cancelled Creat Clearance w eGFR POC Glucometer Random Glucose 103 D Cancelled Lactic Acid Calcium 7.8 L Cancelled Phosphorus Magnesium Total Bilirubin AST ALT Alkaline Phosphatase Creatine Kinase Troponin I C-Reactive Protein Total Protein Albumin Urine Color Urine Appearance Urine pH Ur Specific [place] Urine Protein Urine Glucose (UA) Urine Ketones Urine Blood Urine Nitrite Urine Bilirubin Urine Urobilinogen Ur Leukocyte Esterase Urine RBC Urine WBC Ur Epithelial Cells Urine Bacteria Hyaline Casts Urine Mucus CSF Appearance CSF Color CSF WBC CSF RBC CSF Neutrophils CSF Lymphocytes CSF Monocytes CSF Glucose CSF Total Protein Random Vancomycin Vancomycin Pre-Dose 1.677 L* Acetone, Qual Blood Type Antibody Screen Spec Expiration Date 07/17/17 07/17/17 07/17/17 06:40 06:45 06:45 WBC 9.5 D RBC 3.85 L Hgb 11.3 L Hct 34.2 L MCV 88.9 MCH 29.3 MCHC 32.9 RDW 14.7 Plt Count 200 MPV 8.5 D Total Counted 100 Neutrophils % Y Neutrophils % (Manual) 75 D Band Neuts % (Manual) 4 D Lymphocytes % Y Lymphocytes % (Manual) 11 D Monocytes % Monocytes % (Manual) 7 D Eosinophils % Eosinophils % (Manual) 2 Basophils % Basophils % (Manual) 1 Myelocytes % (Man) Platelet Estimate Platelet Comment RBC Morphology ESR INR PTT (Actin FS) Puncture Site ABG pH ABG pCO2 at Pt Temp ABG pO2 at Pt Temp ABG HCO3 ABG O2 Sat (Measured) ABG O2 Content ABG Base Excess Bernabe Test Carboxyhemoglobin Methemoglobin O2 Delivery Device Oxygen Flow Rate Vent Mode Vent Rate Mechanical Rate PEEP Pressure Support Vent Sodium 144 Potassium 3.8 D Chloride 106 Carbon Dioxide 31 Anion Gap 7 L BUN 7 D Creatinine 0.5 L D Creat Clearance w eGFR > 60 POC Glucometer 85 Random Glucose 85 Lactic Acid Calcium 7.5 L Phosphorus Magnesium Total Bilirubin 0.7 AST 36 D ALT 12 Alkaline Phosphatase 64 Creatine Kinase Troponin I C-Reactive Protein Total Protein 5.7 L Albumin 1.8 L Urine Color Urine Appearance Urine pH Ur Specific [place] Urine Protein Urine Glucose (UA) Urine Ketones Urine Blood Urine Nitrite Urine Bilirubin Urine Urobilinogen Ur Leukocyte Esterase Urine RBC Urine WBC Ur Epithelial Cells Urine Bacteria Hyaline Casts Urine Mucus CSF Appearance CSF Color CSF WBC CSF RBC CSF Neutrophils CSF Lymphocytes CSF Monocytes CSF Glucose CSF Total Protein Random Vancomycin Vancomycin Pre-Dose Acetone, Qual Blood Type Antibody Screen Spec Expiration Date 07/17/17 07/18/17 07/18/17 10:00 06:15 06:15 WBC 10.6 H RBC 3.67 L Hgb 10.8 L Hct 32.6 L MCV 88.8 MCH 29.4 MCHC 33.1 RDW 15.1 Plt Count 194 MPV 8.0 Total Counted Neutrophils % 86.5 H Neutrophils % (Manual) Band Neuts % (Manual) Lymphocytes % 6.3 L D Lymphocytes % (Manual) Monocytes % 6.2 Monocytes % (Manual) Eosinophils % 0.8 Eosinophils % (Manual) Basophils % 0.2 Basophils % (Manual) Myelocytes % (Man) Platelet Estimate Platelet Comment RBC Morphology ESR INR PTT (Actin FS) Puncture Site ABG pH ABG pCO2 at Pt Temp ABG pO2 at Pt Temp ABG HCO3 ABG O2 Sat (Measured) ABG O2 Content ABG Base Excess Bernabe Test Carboxyhemoglobin Methemoglobin O2 Delivery Device Oxygen Flow Rate Vent Mode Vent Rate Mechanical Rate PEEP Pressure Support Vent Sodium 149 H Potassium 2.7 L* D Chloride 111 H Carbon Dioxide 29 Anion Gap 9 BUN 14 D Creatinine 0.7 D Creat Clearance w eGFR > 60 POC Glucometer Random Glucose 101 Lactic Acid Calcium 7.7 L Phosphorus 1.2 L D Magnesium 1.9 1.7 L Total Bilirubin 0.7 AST 9 L D ALT 8 L D Alkaline Phosphatase 68 Creatine Kinase Troponin I C-Reactive Protein Total Protein 5.7 L Albumin 1.7 L Urine Color Urine Appearance Urine pH Ur Specific [place] Urine Protein Urine Glucose (UA) Urine Ketones Urine Blood Urine Nitrite Urine Bilirubin Urine Urobilinogen Ur Leukocyte Esterase Urine RBC Urine WBC Ur Epithelial Cells Urine Bacteria Hyaline Casts Urine Mucus CSF Appearance CSF Color CSF WBC CSF RBC CSF Neutrophils CSF Lymphocytes CSF Monocytes CSF Glucose CSF Total Protein Random Vancomycin Vancomycin Pre-Dose Acetone, Qual Blood Type Antibody Screen Spec Expiration Date 07/18/17 07/18/17 07/19/17 06:48 17:00 06:08 WBC RBC Hgb Hct MCV MCH MCHC RDW Plt Count MPV Total Counted Neutrophils % Neutrophils % (Manual) Band Neuts % (Manual) Lymphocytes % Lymphocytes % (Manual) Monocytes % Monocytes % (Manual) Eosinophils % Eosinophils % (Manual) Basophils % Basophils % (Manual) Myelocytes % (Man) Platelet Estimate Platelet Comment RBC Morphology ESR INR PTT (Actin FS) Puncture Site ABG pH ABG pCO2 at Pt Temp ABG pO2 at Pt Temp ABG HCO3 ABG O2 Sat (Measured) ABG O2 Content ABG Base Excess Bernabe Test Carboxyhemoglobin Methemoglobin O2 Delivery Device Oxygen Flow Rate Vent Mode Vent Rate Mechanical Rate PEEP Pressure Support Vent Sodium Potassium 4.0 D Chloride Carbon Dioxide Anion Gap BUN Creatinine Creat Clearance w eGFR POC Glucometer 81 99 Random Glucose Lactic Acid Calcium Phosphorus Magnesium Total Bilirubin AST ALT Alkaline Phosphatase Creatine Kinase Troponin I C-Reactive Protein Total Protein Albumin Urine Color Urine Appearance Urine pH Ur Specific [place] Urine Protein Urine Glucose (UA) Urine Ketones Urine Blood Urine Nitrite Urine Bilirubin Urine Urobilinogen Ur Leukocyte Esterase Urine RBC Urine WBC Ur Epithelial Cells Urine Bacteria Hyaline Casts Urine Mucus CSF Appearance CSF Color CSF WBC CSF RBC CSF Neutrophils CSF Lymphocytes CSF Monocytes CSF Glucose CSF Total Protein Random Vancomycin Vancomycin Pre-Dose Acetone, Qual Blood Type Antibody Screen Spec Expiration Date 07/19/17 07/19/17 07/19/17 07:00 07:00 16:59 WBC 10.8 H RBC 3.43 L Hgb 10.2 L Hct 30.7 L MCV 89.5 MCH 29.8 MCHC 33.2 RDW 15.4 Plt Count 207 MPV 8.1 Total Counted Neutrophils % 82.7 Neutrophils % (Manual) Band Neuts % (Manual) Lymphocytes % 6.4 L Lymphocytes % (Manual) Monocytes % 9.6 Monocytes % (Manual) Eosinophils % 1.0 Eosinophils % (Manual) Basophils % 0.3 Basophils % (Manual) Myelocytes % (Man) Platelet Estimate Platelet Comment RBC Morphology ESR INR PTT (Actin FS) Puncture Site ABG pH ABG pCO2 at Pt Temp ABG pO2 at Pt Temp ABG HCO3 ABG O2 Sat (Measured) ABG O2 Content ABG Base Excess Bernabe Test Carboxyhemoglobin Methemoglobin O2 Delivery Device Oxygen Flow Rate Vent Mode Vent Rate Mechanical Rate PEEP Pressure Support Vent Sodium 152 H Potassium 3.2 L Chloride 115 H Carbon Dioxide 28 Anion Gap 9 BUN 17 D Creatinine 0.7 Creat Clearance w eGFR > 60 POC Glucometer 114 Random Glucose 104 Lactic Acid Calcium 7.8 L Phosphorus 0.4 L* Magnesium 2.1 D Total Bilirubin 0.5 D AST 12 L D ALT 9 L Alkaline Phosphatase 82 D Creatine Kinase Troponin I C-Reactive Protein Total Protein 5.7 L Albumin 1.6 L Urine Color Urine Appearance Urine pH Ur Specific [place] Urine Protein Urine Glucose (UA) Urine Ketones Urine Blood Urine Nitrite Urine Bilirubin Urine Urobilinogen Ur Leukocyte Esterase Urine RBC Urine WBC Ur Epithelial Cells Urine Bacteria Hyaline Casts Urine Mucus CSF Appearance CSF Color CSF WBC CSF RBC CSF Neutrophils CSF Lymphocytes CSF Monocytes CSF Glucose CSF Total Protein Random Vancomycin Vancomycin Pre-Dose Acetone, Qual Blood Type Antibody Screen Spec Expiration Date 07/20/17 07/20/17 07/20/17 06:00 06:50 09:28 WBC 11.6 H RBC 3.35 L Hgb 9.8 L Hct 30.0 L MCV 89.7 MCH 29.4 MCHC 32.8 RDW 15.5 Plt Count 232 MPV 8.4 Total Counted Neutrophils % 82.0 Neutrophils % (Manual) Band Neuts % (Manual) Lymphocytes % 6.4 L Lymphocytes % (Manual) Monocytes % 10.4 H Monocytes % (Manual) Eosinophils % 0.8 Eosinophils % (Manual) Basophils % 0.4 Basophils % (Manual) Myelocytes % (Man) Platelet Estimate Platelet Comment RBC Morphology ESR INR PTT (Actin FS) Puncture Site ABG pH ABG pCO2 at Pt Temp ABG pO2 at Pt Temp ABG HCO3 ABG O2 Sat (Measured) ABG O2 Content ABG Base Excess Bernabe Test Carboxyhemoglobin Methemoglobin O2 Delivery Device Oxygen Flow Rate Vent Mode Vent Rate Mechanical Rate PEEP Pressure Support Vent Sodium 149 H Potassium 3.7 Chloride 114 H Carbon Dioxide 25 Anion Gap 10 BUN 21 H D Creatinine 0.8 Creat Clearance w eGFR > 60 POC Glucometer 95 Random Glucose 107 H Lactic Acid Calcium 7.7 L Phosphorus 0.7 L* Magnesium 1.8 Total Bilirubin 0.3 D AST 13 L ALT 8 L Alkaline Phosphatase 85 Creatine Kinase Troponin I C-Reactive Protein Total Protein 6.0 L Albumin 1.6 L Urine Color Urine Appearance Urine pH Ur Specific [place] Urine Protein Urine Glucose (UA) Urine Ketones Urine Blood Urine Nitrite Urine Bilirubin Urine Urobilinogen Ur Leukocyte Esterase Urine RBC Urine WBC Ur Epithelial Cells Urine Bacteria Hyaline Casts Urine Mucus CSF Appearance CSF Color CSF WBC CSF RBC CSF Neutrophils CSF Lymphocytes CSF Monocytes CSF Glucose CSF Total Protein Random Vancomycin Vancomycin Pre-Dose Acetone, Qual Blood Type Antibody Screen Spec Expiration Date 07/20/17 07/20/17 07/20/17 12:45 16:31 18:02 WBC RBC Hgb Hct MCV MCH MCHC RDW Plt Count MPV Total Counted Neutrophils % Neutrophils % (Manual) Band Neuts % (Manual) Lymphocytes % Lymphocytes % (Manual) Monocytes % Monocytes % (Manual) Eosinophils % Eosinophils % (Manual) Basophils % Basophils % (Manual) Myelocytes % (Man) Platelet Estimate Platelet Comment RBC Morphology ESR INR PTT (Actin FS) Puncture Site Left radial ABG pH 7.46 H D ABG pCO2 at Pt Temp 31.6 L D ABG pO2 at Pt Temp 103.0 H ABG HCO3 22.0 ABG O2 Sat (Measured) 98.7 ABG O2 Content 13.7 L ABG Base Excess -0.9 Bernabe Test Positive Carboxyhemoglobin Methemoglobin O2 Delivery Device Nasal Oxygen Flow Rate 4l Vent Mode Vent Rate Mechanical Rate PEEP 0.0 Pressure Support Vent Sodium Potassium Chloride Carbon Dioxide Anion Gap BUN Creatinine Creat Clearance w eGFR POC Glucometer 110 Random Glucose Lactic Acid 1.3 Calcium Phosphorus Magnesium Total Bilirubin AST ALT Alkaline Phosphatase Creatine Kinase Troponin I C-Reactive Protein Total Protein Albumin Urine Color Urine Appearance Urine pH Ur Specific [place] Urine Protein Urine Glucose (UA) Urine Ketones Urine Blood Urine Nitrite Urine Bilirubin Urine Urobilinogen Ur Leukocyte Esterase Urine RBC Urine WBC Ur Epithelial Cells Urine Bacteria Hyaline Casts Urine Mucus CSF Appearance CSF Color CSF WBC CSF RBC CSF Neutrophils CSF Lymphocytes CSF Monocytes CSF Glucose CSF Total Protein Random Vancomycin Vancomycin Pre-Dose Acetone, Qual Blood Type Antibody Screen Spec Expiration Date 07/21/17 07/21/17 07/21/17 07:00 07:00 07:00 WBC 18.7 H D RBC 3.42 L Hgb 10.0 L Hct 30.7 L MCV 89.6 MCH 29.2 MCHC 32.6 RDW 16.3 H Plt Count 282 D MPV 8.6 Total Counted Neutrophils % 88.5 H Neutrophils % (Manual) Band Neuts % (Manual) Lymphocytes % 4.0 L D Lymphocytes % (Manual) Monocytes % 6.8 Monocytes % (Manual) Eosinophils % 0.5 Eosinophils % (Manual) Basophils % 0.2 Basophils % (Manual) Myelocytes % (Man) Platelet Estimate Platelet Comment RBC Morphology ESR INR PTT (Actin FS) Puncture Site ABG pH ABG pCO2 at Pt Temp ABG pO2 at Pt Temp ABG HCO3 ABG O2 Sat (Measured) ABG O2 Content ABG Base Excess Bernabe Test Carboxyhemoglobin Methemoglobin O2 Delivery Device Oxygen Flow Rate Vent Mode Vent Rate Mechanical Rate PEEP Pressure Support Vent Sodium 144 Potassium 4.5 D Chloride 111 H Carbon Dioxide 21 Anion Gap 12 BUN 26 H D Creatinine 1.0 D Creat Clearance w eGFR > 60 POC Glucometer Random Glucose 88 Lactic Acid 0.7 Calcium 7.6 L Phosphorus 3.1 D Magnesium 1.5 L Total Bilirubin 0.5 D AST 16 D ALT 8 L Alkaline Phosphatase 94 Creatine Kinase Troponin I C-Reactive Protein Total Protein 6.4 Albumin 1.7 L Urine Color Urine Appearance Urine pH Ur Specific [place] Urine Protein Urine Glucose (UA) Urine Ketones Urine Blood Urine Nitrite Urine Bilirubin Urine Urobilinogen Ur Leukocyte Esterase Urine RBC Urine WBC Ur Epithelial Cells Urine Bacteria Hyaline Casts Urine Mucus CSF Appearance CSF Color CSF WBC CSF RBC CSF Neutrophils CSF Lymphocytes CSF Monocytes CSF Glucose CSF Total Protein Random Vancomycin Vancomycin Pre-Dose Acetone, Qual Blood Type Antibody Screen Spec Expiration Date 07/21/17 07/21/17 07/21/17 07:07 07:50 11:00 WBC RBC Hgb Hct MCV MCH MCHC RDW Plt Count MPV Total Counted Neutrophils % Neutrophils % (Manual) Band Neuts % (Manual) Lymphocytes % Lymphocytes % (Manual) Monocytes % Monocytes % (Manual) Eosinophils % Eosinophils % (Manual) Basophils % Basophils % (Manual) Myelocytes % (Man) Platelet Estimate Platelet Comment RBC Morphology ESR INR PTT (Actin FS) Puncture Site Left radial ABG pH 7.35 ABG pCO2 at Pt Temp 33.5 L ABG pO2 at Pt Temp 103.0 H ABG HCO3 18.1 L ABG O2 Sat (Measured) 98.2 ABG O2 Content 15.9 ABG Base Excess -6.2 L Bernabe Test Positive Carboxyhemoglobin Methemoglobin O2 Delivery Device Non rebreather Oxygen Flow Rate 100% Vent Mode Vent Rate Mechanical Rate PEEP 0.0 Pressure Support Vent Sodium Potassium Chloride Carbon Dioxide Anion Gap BUN Creatinine Creat Clearance w eGFR POC Glucometer 95 Random Glucose Lactic Acid Calcium Phosphorus Magnesium Total Bilirubin AST ALT Alkaline Phosphatase Creatine Kinase Troponin I C-Reactive Protein Total Protein Albumin Urine Color Urine Appearance Urine pH Ur Specific [place] Urine Protein Urine Glucose (UA) Urine Ketones Urine Blood Urine Nitrite Urine Bilirubin Urine Urobilinogen Ur Leukocyte Esterase Urine RBC Urine WBC Ur Epithelial Cells Urine Bacteria Hyaline Casts Urine Mucus CSF Appearance CSF Color CSF WBC CSF RBC CSF Neutrophils CSF Lymphocytes CSF Monocytes CSF Glucose CSF Total Protein Random Vancomycin Vancomycin Pre-Dose 58.27 H* D Acetone, Qual Blood Type Antibody Screen Spec Expiration Date 07/21/17 07/21/17 07/21/17 14:08 17:15 19:00 WBC RBC Hgb Hct MCV MCH MCHC RDW Plt Count MPV Total Counted Neutrophils % Neutrophils % (Manual) Band Neuts % (Manual) Lymphocytes % Lymphocytes % (Manual) Monocytes % Monocytes % (Manual) Eosinophils % Eosinophils % (Manual) Basophils % Basophils % (Manual) Myelocytes % (Man) Platelet Estimate Platelet Comment RBC Morphology ESR INR PTT (Actin FS) Puncture Site Left radial ABG pH 7.37 ABG pCO2 at Pt Temp 30.6 L ABG pO2 at Pt Temp 91.0 ABG HCO3 17.3 L ABG O2 Sat (Measured) 97.8 ABG O2 Content 13.5 L ABG Base Excess -6.5 L Bernabe Test Positive Carboxyhemoglobin Methemoglobin O2 Delivery Device Vent Oxygen Flow Rate 60% Vent Mode A/c Vent Rate 14 Mechanical Rate Y PEEP 5.0 Pressure Support Vent 350 Sodium Potassium Chloride Carbon Dioxide Anion Gap BUN Creatinine Creat Clearance w eGFR POC Glucometer Random Glucose Lactic Acid Calcium Phosphorus Magnesium Total Bilirubin AST ALT Alkaline Phosphatase Creatine Kinase Troponin I C-Reactive Protein Total Protein Albumin Urine Color Straw Urine Appearance Clear Urine pH 5.0 Ur Specific [place] 1.010 Urine Protein Negative Urine Glucose (UA) Negative Urine Ketones Negative Urine Blood 2+ H Urine Nitrite Negative Urine Bilirubin Negative Urine Urobilinogen Negative Ur Leukocyte Esterase Negative Urine RBC 7 Urine WBC 3 Ur Epithelial Cells Rare Urine Bacteria Rare Hyaline Casts Urine Mucus Rare CSF Appearance Turbid CSF Color Xanthochromic CSF WBC [id number] CSF RBC 100 CSF Neutrophils 81 CSF Lymphocytes 16 CSF Monocytes 3 CSF Glucose 2 L CSF Total Protein 1622 H Random Vancomycin Vancomycin Pre-Dose Acetone, Qual Blood Type Antibody Screen Spec Expiration Date 07/21/17 07/22/17 07/22/17 19:00 05:00 05:00 WBC 19.1 H RBC 3.13 L Hgb 9.1 L Hct 27.8 L MCV 88.6 MCH 29.1 MCHC 32.8 RDW 15.8 Plt Count 348 D MPV 8.5 Total Counted Neutrophils % Neutrophils % (Manual) Band Neuts % (Manual) Lymphocytes % Lymphocytes % (Manual) Monocytes % Monocytes % (Manual) Eosinophils % Eosinophils % (Manual) Basophils % Basophils % (Manual) Myelocytes % (Man) Platelet Estimate Platelet Comment RBC Morphology ESR INR PTT (Actin FS) Puncture Site ABG pH ABG pCO2 at Pt Temp ABG pO2 at Pt Temp ABG HCO3 ABG O2 Sat (Measured) ABG O2 Content ABG Base Excess Bernabe Test Carboxyhemoglobin Methemoglobin O2 Delivery Device Oxygen Flow Rate Vent Mode Vent Rate Mechanical Rate PEEP Pressure Support Vent Sodium Potassium Chloride Carbon Dioxide Anion Gap BUN Creatinine Creat Clearance w eGFR POC Glucometer Random Glucose Lactic Acid Calcium Phosphorus Magnesium Total Bilirubin AST ALT Alkaline Phosphatase Creatine Kinase Troponin I C-Reactive Protein Total Protein Albumin Urine Color Urine Appearance Urine pH Ur Specific [place] Urine Protein Urine Glucose (UA) Urine Ketones Urine Blood Urine Nitrite Urine Bilirubin Urine Urobilinogen Ur Leukocyte Esterase Urine RBC Urine WBC Ur Epithelial Cells Urine Bacteria Hyaline Casts Urine Mucus CSF Appearance CSF Color CSF WBC CSF RBC CSF Neutrophils CSF Lymphocytes CSF Monocytes CSF Glucose CSF Total Protein Cancelled Random Vancomycin 35.055 Vancomycin Pre-Dose Acetone, Qual Blood Type Antibody Screen Spec Expiration Date 07/22/17 07/22/17 07/22/17 05:14 11:00 11:00 WBC RBC Hgb Hct MCV MCH MCHC RDW Plt Count MPV Total Counted Neutrophils % Neutrophils % (Manual) Band Neuts % (Manual) Lymphocytes % Lymphocytes % (Manual) Monocytes % Monocytes % (Manual) Eosinophils % Eosinophils % (Manual) Basophils % Basophils % (Manual) Myelocytes % (Man) Platelet Estimate Platelet Comment RBC Morphology ESR INR 1.63 H PTT (Actin FS) 36.4 H Puncture Site ABG pH ABG pCO2 at Pt Temp ABG pO2 at Pt Temp ABG HCO3 ABG O2 Sat (Measured) ABG O2 Content ABG Base Excess Bernabe Test Carboxyhemoglobin Methemoglobin O2 Delivery Device Oxygen Flow Rate Vent Mode Vent Rate Mechanical Rate PEEP Pressure Support Vent Sodium 150 H Potassium 3.8 Chloride 118 H Carbon Dioxide 19 L Anion Gap 13 BUN 29 H Creatinine 1.0 Creat Clearance w eGFR > 60 POC Glucometer 138.56617 Random Glucose 98 Lactic Acid Calcium 8.1 L Phosphorus Magnesium Total Bilirubin 0.4 AST 13 L ALT 8 L Alkaline Phosphatase 93 Creatine Kinase Troponin I C-Reactive Protein Total Protein 5.7 L Albumin 1.4 L Urine Color Urine Appearance Urine pH Ur Specific [place] Urine Protein Urine Glucose (UA) Urine Ketones Urine Blood Urine Nitrite Urine Bilirubin Urine Urobilinogen Ur Leukocyte Esterase Urine RBC Urine WBC Ur Epithelial Cells Urine Bacteria Hyaline Casts Urine Mucus CSF Appearance CSF Color CSF WBC CSF RBC CSF Neutrophils CSF Lymphocytes CSF Monocytes CSF Glucose CSF Total Protein Random Vancomycin Vancomycin Pre-Dose Acetone, Qual Blood Type Antibody Screen Spec Expiration Date 07/23/17 07/23/17 07/23/17 05:15 05:15 06:39 WBC 21.0 H RBC 3.22 L Hgb 9.4 L Hct 28.7 L MCV 89.2 MCH 29.3 MCHC 32.9 RDW 16.4 H Plt Count 362 MPV 8.5 Total Counted 100 Neutrophils % Y Neutrophils % (Manual) 89 H Band Neuts % (Manual) 8 D Lymphocytes % Y Lymphocytes % (Manual) Monocytes % Monocytes % (Manual) 1 L D Eosinophils % Eosinophils % (Manual) 2 Basophils % Basophils % (Manual) Myelocytes % (Man) Platelet Estimate Platelet Comment RBC Morphology ESR INR PTT (Actin FS) Puncture Site ABG pH ABG pCO2 at Pt Temp ABG pO2 at Pt Temp ABG HCO3 ABG O2 Sat (Measured) ABG O2 Content ABG Base Excess Bernabe Test Carboxyhemoglobin Methemoglobin O2 Delivery Device Oxygen Flow Rate Vent Mode Vent Rate Mechanical Rate PEEP Pressure Support Vent Sodium 148 H Potassium 3.9 Chloride 119 H Carbon Dioxide 16 L Anion Gap 13 BUN 33 H Creatinine 1.1 Creat Clearance w eGFR > 60 POC Glucometer 141.61885 Random Glucose 114 H Lactic Acid Calcium 8.3 L Phosphorus 0.7 L* Magnesium 1.5 L Total Bilirubin 0.4 AST 15 ALT 7 L Alkaline Phosphatase 97 Creatine Kinase Troponin I C-Reactive Protein Total Protein 5.9 L Albumin 1.3 L Urine Color Urine Appearance Urine pH Ur Specific [place] Urine Protein Urine Glucose (UA) Urine Ketones Urine Blood Urine Nitrite Urine Bilirubin Urine Urobilinogen Ur Leukocyte Esterase Urine RBC Urine WBC Ur Epithelial Cells Urine Bacteria Hyaline Casts Urine Mucus CSF Appearance CSF Color CSF WBC CSF RBC CSF Neutrophils CSF Lymphocytes CSF Monocytes CSF Glucose CSF Total Protein Random Vancomycin Vancomycin Pre-Dose Acetone, Qual Blood Type Antibody Screen Spec Expiration Date 07/23/17 12:15 WBC RBC Hgb Hct MCV MCH MCHC RDW Plt Count MPV Total Counted Neutrophils % Neutrophils % (Manual) Band Neuts % (Manual) Lymphocytes % Lymphocytes % (Manual) Monocytes % Monocytes % (Manual) Eosinophils % Eosinophils % (Manual) Basophils % Basophils % (Manual) Myelocytes % (Man) Platelet Estimate Platelet Comment RBC Morphology ESR INR PTT (Actin FS) Puncture Site ABG pH ABG pCO2 at Pt Temp ABG pO2 at Pt Temp ABG HCO3 ABG O2 Sat (Measured) ABG O2 Content ABG Base Excess Bernabe Test Carboxyhemoglobin Methemoglobin O2 Delivery Device Oxygen Flow Rate Vent Mode Vent Rate Mechanical Rate PEEP Pressure Support Vent Sodium Potassium Chloride Carbon Dioxide Anion Gap BUN Creatinine Creat Clearance w eGFR POC Glucometer 160.69071 Random Glucose Lactic Acid Calcium Phosphorus Magnesium Total Bilirubin AST ALT Alkaline Phosphatase Creatine Kinase Troponin I C-Reactive Protein Total Protein Albumin Urine Color Urine Appearance Urine pH Ur Specific [place] Urine Protein Urine Glucose (UA) Urine Ketones Urine Blood Urine Nitrite Urine Bilirubin Urine Urobilinogen Ur Leukocyte Esterase Urine RBC Urine WBC Ur Epithelial Cells Urine Bacteria Hyaline Casts Urine Mucus CSF Appearance CSF Color CSF WBC CSF RBC CSF Neutrophils CSF Lymphocytes CSF Monocytes CSF Glucose CSF Total Protein Random Vancomycin Vancomycin Pre-Dose Acetone, Qual Blood Type Antibody Screen Spec Expiration Date Microbiology 07/22/17 14:55 Abdomen Wound Culture - Preliminary Lactose Fermenting Neg Bacilli 07/21/17 17:15 Urine - Urine Schwartz Urine Culture - Final NO GROWTH OBTAINED 07/21/17 11:15 Blood - Peripheral Venous Blood Culture - Preliminary NO GROWTH OBTAINED AFTER 48 HOURS, INCUBATION TO CONTINUE FOR 3 DAYS. 07/21/17 19:00 Cerebral Spinal Fluid - Shunt-Csf Gram Stain - Final 07/21/17 19:00 Cerebral Spinal Fluid - Shunt-Csf CSF Culture - Final Klebsiella Pneumoniae 07/21/17 08:30 Blood - Central Line Blood Culture - Preliminary NO GROWTH OBTAINED AFTER 48 HOURS, INCUBATION TO CONTINUE FOR 3 DAYS. 07/21/17 08:30 Blood - Central Line Blood Culture - Preliminary NO GROWTH OBTAINED AFTER 48 HOURS, INCUBATION TO CONTINUE FOR 3 DAYS. 07/16/17 17:00 Blood - Peripheral Venous Blood Culture - Final NO GROWTH AFTER 5 DAYS INCUBATION 07/16/17 17:00 Blood - Peripheral Venous Blood Culture - Final NO GROWTH AFTER 5 DAYS INCUBATION 07/16/17 20:00 Urine - Urine Schwartz Urine Culture - Final NO GROWTH OBTAINED 07/13/17 09:25 Blood - Peripheral Venous Blood Culture - Final NO GROWTH AFTER 5 DAYS INCUBATION 07/13/17 09:25 Blood - Peripheral Venous Blood Culture - Final NO GROWTH AFTER 5 DAYS INCUBATION 07/11/17 20:30 Blood - Peripheral Venous Blood Culture - Final Staphylococcus Auricularis 07/14/17 10:00 Urine - Urine Cshwartz Urine Culture - Final NO GROWTH OBTAINED 07/12/17 13:30 Urine - Urine Schwartz Urine Culture - Final NO GROWTH OBTAINED 07/11/17 20:30 Blood - Peripheral Venous Blood Culture - Preliminary Staphylococcus Coagulase Neg 07/11/17 20:48 Urine - Urine Clean Catch Urine Culture - Final Contaminated: Please Repeat 21 year-old male with a [facility] signficant for profound developmental delays, spastic cerebral palsy, cortical blindness, seizure disorder, macrocephaly, meningiomyelocele at , spinal defect, ADULT EDUCATION MANAGER shunt. Admitted for bilateral pneumonia and SBO. 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 Severe Sepsis Bilateral pneumonia Staph auricularis bacteremia Klebsiella ascending meningitis Infected ADULT EDUCATION MANAGER shunt s/p externalization on 07/22/17 Intraabdominal collection likely Klebsiella s/p drainage 07/22/17 --meropenem started (day #2); continue metronidazole (day #3); cefepime dc'd on 07/21 after 2 doses --to OR today with Dr. Rocha for externalization of shunt Hypoxic respiratory failure --intubated Bilateral hydroureternephrosis --likely seondary to intraperitoneal fluid collection --renal function stable, good urine output SBO, improved Ileus --continue to decompress via NGT and bowel regimen Seizure disorder --no seizure activity observed, close monitor on carbapenem --continue phenobarbital Hypernatremia --resolved Hypokalemia --resolved Hypophosphatemia --resolved Functional quadripalegic --profound developmental delays, spastic limbs, cortical blindness, club feet , contracted extremities --fully dependent for all ADLs F/E/N Fluids/Nutrition: Clinimix+40K @ 83mL/hr Electrolytes: replete as indicated DVT prophylaxis: subq heparin Dispo: transfer to [facility]. Per CT surgeon Dr. Hammer: CT suggests ventriculitis. I am very concerned that this is a life threatening infection which will likely not respond to antibiotics alone. He will likely require shunt removal, External ventricular drainage, prolonged antibiotic therapy, possible intraventricular antibiotics or ventricular irrigation with endoscopic assistance and continuous ICU support. These resources are not all immediately available at this institution. After discussion with other members of the care team, I support the current consideration of transferring the patient to a higher level of care. Minutes to complete discharge: 35 Discharge Summary Reason For Visit: PNEUMONIA Current Active Problems Distended abdomen (Acute) Gram-positive bacteremia (Acute) Hydronephrosis (Acute) Hypokalemia (Acute) Hypophosphatemia (Acute) Infection of ventriculoperitoneal shunt (Acute) Meningomyelocele (Acute) Pneumonia (Acute) Respiratory failure (Acute) SBO (small bowel obstruction) (Acute) Sepsis (Acute) UTI (urinary tract infection) (Acute) Condition: Stable - Instructions Disposition: TRANSFER ACUTE CARE/OTHER HOSP - Home Medications Comprehensive Discharge Medication List: Ambulatory Orders Calcium Carbonate 1 gm PO DAILY 07/29/16 Carbamazepine 700 mg PO TID 07/29/16 Mineral Oil/Petrolatum,White [Artificial Tears Eye Ointment] 3.5 gm OP HS Acetaminophen Injection [Ofirmev Injection -] 1,000 mg IVPB Q8H vial 07/23/17 Albuterol 2.5/Ipratropium 0.5 [Duoneb -] 1 amp NEB QIDR amp 07/23/17 Amino Acids 4.25%/D5w [Clinimix 4.25%/D5w Solution] 1,000 ml IVPB Q12H #1,000 ml 07/23/17 Heparin - 5,000 unit SQ TID vial 07/23/17 Insulin Sliding Scale [Novolog Vial Sliding Scale -] 1 vial SQ AM units Meropenem [Merrem (Restricted To Id) -] 2 gm IVPB Q8H #2 gm 07/23/17 Pantoprazole Sodium [Protonix Ivpb -] 40 mg IVPB DAILY #40 mg 07/23/17 Phenobarbital Injection - 97 mg IVPB AM #1 vial MDD 1 07/23/17 Phenobarbital Injection - 150 mg IVPB HS #1 vial MDD 1 07/23/17 Polyethylene Glycol 3350 [Miralax 119 gm Btl -] 17 gm NGT BID bottle 07/23/17 Potassium Chloride [KCl -] 40 meq IVPB Q12H vial 07/23/17 Propofol [Diprivan -] 100 ml IVPB TITR vial 07/23/17 This patient is new to me today: No Emergency Visit: Yes ED Registration Date: 07/11/17 Care time: The patient presented to the Emergency Department on the above date and was hospitalized for further evaluation of their emergent condition. Critical Care patient: Yes Total Critical Care Time (in minutes): 35 Critical Care Statement: The care of this patient involved high complexity decision making to prevent further life threatening deterioration of the patient 's condition and/or to evaluate & treat vital organ system(s) failure or risk of failure. - Discharge Referral Referred to [facility] No
[2017-07-23] MEDS ORDERED: PROPOFOL 100 ML ONE (16:58)
[2017-07-23 17:40] VITALS: BP 130/61; PULSE 110; TEMP 98.4
== END 2017-07-23 17:38 | disposition short-term general hospital (02) | DRG 720 ==
LOC: JER 18:56 → JERBED 22:57 → UNDOADMIN 23:13 → JICU 07-12 00:46 → J5S 07-15 19:49 → JICU 07-21 10:49
PROVIDERS: ADMIT Internal Medicine; ATTEND Nurse Practitioner Acute Care
PROC: 0D9670Z Drainage of Stomach with Drainage Device, Via Natural or Artificial Opening (ICD-10-PCS; 2017-07-16)
PROC: 0BH17EZ Insertion of Endotracheal Airway into Trachea, Via Natural or Artificial Opening (ICD-10-PCS; 2017-07-21)
PROC: 5A1945Z Respiratory Ventilation, 24-96 Consecutive Hours (ICD-10-PCS; 2017-07-21)
PROC: B01BZZZ Fluoroscopy of Spinal Cord (ICD-10-PCS; 2017-07-22)
PROC: 0W9G30Z Drainage of Peritoneal Cavity with Drainage Device, Percutaneous Approach (ICD-10-PCS; 2017-07-22)
PROC: 009U3ZX Drainage of Spinal Canal, Percutaneous Approach, Diagnostic (ICD-10-PCS; principal; 2017-07-22 13:00)
DX: A41.1 Sepsis due to other specified staphylococcus (principal); R65.20 Severe sepsis without septic shock; Q05.9 Spina bifida, unspecified; G91.8 Other hydrocephalus; R00.0 Tachycardia, unspecified; Q75.3 Macrocephaly; R06.82 Tachypnea, not elsewhere classified; D72.828 Other elevated white blood cell count; R73.9 Hyperglycemia, unspecified; J90 Pleural effusion, not elsewhere classified; E87.2 Acidosis; N39.0 Urinary tract infection, site not specified; G40.802 Other epilepsy, not intractable, without status epilepticus; R14.0 Abdominal distension (gaseous); J69.0 Pneumonitis due to inhalation of food and vomit; N17.9 Acute kidney failure, unspecified; E87.1 Hypo-osmolality and hyponatremia; F73 Profound intellectual disabilities; K56.69 Other intestinal obstruction; E83.39 Other disorders of phosphorus metabolism; E87.6 Hypokalemia; G04.81 Other encephalitis and encephalomyelitis; G80.8 Other cerebral palsy; E87.0 Hyperosmolality and hypernatremia; R53.2 Functional quadriplegia; H47.619 Cortical blindness, unspecified side of brain; J96.01 Acute respiratory failure with hypoxia; N13.39 Other hydronephrosis; T85.730A Infection and inflammatory reaction due to ventricular intracranial (communicating) shunt, initial encounter; Y83.8 Other surgical procedures as the cause of abnormal reaction of the patient, or of later complication, without mention of misadventure at the time of the procedure; Y92.89 Other specified places as the place of occurrence of the external cause; L89.153 Pressure ulcer of sacral region, stage 3
CPT/HCPCS: 31500; 36415; 36600; 49406; 70450-TC; 71010-TC; 71250-TC; 74000-TC; 74176-TC; 76000-TC; 76098-TC; 76705-TC; 80048; 80053; 81003; 81015; 82009; 82375; 82803; 82945; 83050; 83605; 83735; 84100; 84132; 84157; 84484; 85025; 85027; 85610; 85651; 85730; 86140; 86850; 86900; 86901; 87040; 87070; 87086; 87186; 87205; 87899; 89050; 93005; 93010; 93306-TC; 94002; 94640; 99282-25; C1729; C1769; G0480; J1644